=== PATIENT | male | born 1975 | race Caucasian/White ===

== ENCOUNTER 2020-08-19 08:51 | Outpatient (REF) | payer OTHER, SELFPAY ==
[2020-08-19 11:14] LABS: MANUAL DIFF FLAG NO
[2020-08-19 11:22] LABS: Basophils Absolute Auto 0.1 X10*3/uL (0.0-0.2); Basophils Percent Auto 0.8 % (0-2); Eosinophils Absolute Auto 0.1 X10*3/uL (0.0-0.4); Eosinophils Percent Auto 0.8 % (0-4); Hematocrit 43.6 % (42-52); Hemoglobin 14.2 g/dl (14.0-18.0); Imm Gran Abs Auto 0.05 X10*3/uL (0.00-0.03); Imm Gran Pct Auto 0.8 % (0.0-0.4); Lymphocytes Absolute Auto 1.5 X10*3/uL (1.2-4.9); Lymphocytes Percent Auto 24.2 % (20-40); Mean Corpuscular HGB Conc 32.6 g/dl (31.0-36.0); Mean Corpuscular Hemoglobin 32.7 pg (27.0-33.0); Mean Corpuscular Volume 100.5 fL (80-98); Mean Platelet Volume 10.7 fL (9.4-12.4); Monocytes Absolute Auto 0.4 X10*3/uL (0.1-1.2); Monocytes Percent Auto 6.3 % (2-11); Neutrophils Percent Auto 67.1 % (45-73); Platelet Count 303 X10*3/uL (160-400); Red Blood Count 4.34 X10*6/uL (4.60-5.80); Red Cell Distribution Width 12.2 % (11.0-16.0)
[2020-08-19 12:01] LABS: Alanine Aminotransferase 51 U/L (0-40); Albumin Level 4.4 g/dL (3.5-5.0); Alkaline Phosphatase 70 U/L (39-117); Anion Gap 17 (12-20); Aspartate Amino Transferase 34 U/L (5-37); Bilirubin Total 0.2 mg/dL (0.0-1.0); Blood Urea Nitrogen 18 mg/dL (9-16); Carbon Dioxide 21 mmol/L (22-29); Chloride 107 mmol/L (96-108); Cholesterol 254 mg/dL; Estimated Glomerular Filt Rate > 60; Free T4 (Free Thyroxine) 0.74 ng/dL (0.71-1.85); Glucose Fasting 108 mg/dL (60-99); HDL Cholesterol 41 mg/dL; Sodium 141 mmol/L (135-145); Thyroid Stimulating Hormone 2.01 uIU/mL (0.32-4.0); Total Protein 7.3 g/dL (6.5-8.0); Triglycerides 431 mg/dL
[2020-08-19 12:14] LABS: Vitamin B12 225 pg/mL (200-900)
== END 2020-08-19 08:52 | disposition home or self-care (01) ==
LOC: HO.HMGCLDS 08:51
PROVIDERS: PCP Internal Medicine; Visit Provider Internal Medicine
DX: Z00.00 Encounter for general adult medical examination without abnormal findings (principal); R63.5 Abnormal weight gain
CPT/HCPCS: 36415; 80053; 80061; 82607; 84439; 84443; 85025; 86140

== ENCOUNTER → 2020-11-10 12:54 | Outpatient (REF) | payer OTHER, SELFPAY ==
--- NOTE | 2020-11-10 12:58 | CA_ITS ---
Transthoracic Echocardiogram Patient (Last, First, Middle): Bautista Caamrillo J Gender: Male Date of : 1975 Age: 45 Procedure Date: 11/10/2020 Procedure Type: Transthoracic Echocardiogram Location: OP Height: 177.8 cm Weight: 102.06 kg BSA: 2.19 m2 Heart Rate: bpm BP: 124 / 84 mmHg Radio Repairman: EVELIO Referring MD: Song Pratt MD Symptoms: LEFT VENTRICULAR FAILURE, UNSPECIFIED Study Quality: Fair ECG Rhythm: Sinus Conclusions: - The left ventricular systolic function is normal. The visually estimated ejection fraction is between 55-60%. - No obvious valvular pathology seen on this study. Findings Left Ventricle Normal left ventricular cavity size. There is normal left ventricular wall thickness. The left ventricular systolic function is normal. The visually estimated ejection fraction is between 55-60%. There is no evidence of regional wall motion abnormalities. Diastolic function is normal for age. Right Ventricle Normal right ventricular cavity size and systolic function. Atria Both atria are normal in size. Aortic Valve There is a normal trileaflet aortic valve. There is no aortic valve stenosis. There is no aortic valve regurgitation. Mitral Valve The mitral valve appears normal. There is trace mitral valve regurgitation. There is no mitral valve stenosis. Pulmonic Valve The pulmonic valve was not well visualized. Tricuspid Valve Normal tricuspid valve structure. There is trace tricuspid valve regurgitation. The pulmonary artery systolic pressure is normal. Great Vessels The aortic annulus, sinuses of valsalva, asc aorta, and aortic arch are normal in size. Venous The inferior vena cava is normal in size and collapses greater than 50% with inspiration. Pericardium/Pleural There is no evidence of pericardial effusion. Recommendations, Care & Conclusions No obvious valvular pathology seen on this study. Measurements 2D Linear Measurements IVSd: 0.98 0.6-0.9/0.6-1.0 cm LVIDd: 4.69 3.9-5.3/4.2-5.9 cm LVIDd Index: 2.14 2.4-3.2/2.2-3.1 cm/m2 LVIDs: 3.14 2.0-3.6 cm LVPWd: 0.91 0.7-1.1 cm Ao Root: 3.60 2.1-3.5 cm LA Diam: 3.30 2.7-3.8/3.0-4.0 cm LAIDs Index: 1.51 1.5-2.3 cm/m2 LV Mass: 189.27 67-162/88-224 g LV Mass Index: 86.42 43-95/49-115 g/m2 LVOT Diam: 2.30 3.0+(-)1.3 cm 2D Systolic Function EF 4C: 59.50 >55% EF 2C: 56.00 >55% EF BiP: 57.80 >55% Mitral Valve MV Pk E: 0.52 MV PK A: 0.72 MV Decel Time: 266.00 E/A: 0.70 E'Lateral: 8.27 E'Medial: 6.09 E/E' Med: 8.50 E/E' Lat: 6.30 PHT: 78.00 MVA PHT: 2.82 Decel Geary: 1.96 Aortic Valve AoV Pk Wilfred: 1.05 AoV Mn Wilfred: 0.68 AoV VTI: 0.15 AoV Pk Grad: 4.00 Aov Mn Grad: 2.00 HAL Cont.VTI: 3.96 LVOT LVOT Pk Wilfred: 0.83 LVOT Mn Wilfred: 0.53 LVOT VTI: 0.15 LVOT Pk Grad: 3.00 LVOT Mn Grad: 1.00 LVOT Diam: 2.30 LVOT Area: 4.15 Diastolic Function MV Pk E: 0.52 MV Pk A: 0.72 E/A: 0.70 E'Medial: 6.09 E/E' Med: 8.50 E' Laterial: 8.27 E/E' Lat: 6.30 Great Vessels Aorta Ao Root-2D: 3.60 2.0-3.7 cm Ao Asc: 3.10 2.1-3.4 cm Ao Arch: 3.30 Updated in Other Vendor System with Status of Final Joseph Oliveira MD electronically signed on 11/12/2020 2:09:29 PM with status of Final
== END ==
LOC: HO.CARD 12:54
PROVIDERS: PCP Internal Medicine; Visit Provider Internal Medicine
DX: R00.2 Palpitations (principal); I50.1 Left ventricular failure, unspecified
CPT/HCPCS: 93306

== ENCOUNTER 2020-12-25 09:04 | Outpatient (REF) | payer OTHER, SELFPAY ==
[2020-12-25 13:42] LABS: MANUAL DIFF FLAG NO
[2020-12-25 14:02] LABS: Basophils Absolute Auto 0.1 X10*3/uL (0.0-0.2); Eosinophils Absolute Auto 0.1 X10*3/uL (0.0-0.4); Eosinophils Percent Auto 1.1 % (0-4); Hematocrit 43.1 % (42-52); Hemoglobin 13.8 g/dl (14.0-18.0); Imm Gran Abs Auto 0.03 X10*3/uL (0.00-0.03); Imm Gran Pct Auto 0.4 % (0.0-0.4); Lymphocytes Absolute Auto 1.5 X10*3/uL (1.2-4.9); Lymphocytes Percent Auto 21.6 % (20-40); Mean Corpuscular Hemoglobin 33.3 pg (27.0-33.0); Mean Corpuscular Volume 103.9 fL (80-98); Mean Platelet Volume 10.5 fL (9.4-12.4); Monocytes Absolute Auto 0.5 X10*3/uL (0.1-1.2); Monocytes Percent Auto 7.3 % (2-11); Neutrophils Absolute Auto 4.8 X10*3/uL (2.0-8.3); Neutrophils Percent Auto 68.6 % (45-73); Platelet Count 337 X10*3/uL (160-400); Red Blood Count 4.15 X10*6/uL (4.60-5.80)
[2020-12-25 14:19] LABS: Alanine Aminotransferase 101 U/L (0-40); Albumin Level 4.7 g/dL (3.5-5.0); Alkaline Phosphatase 82 U/L (39-117); Anion Gap 16 (12-20); Aspartate Amino Transferase 63 U/L (5-37); Bilirubin Total 0.8 mg/dL (0.0-1.0); Blood Urea Nitrogen 14 mg/dL (9-16); Carbon Dioxide 24 mmol/L (22-29); Chloride 101 mmol/L (96-108); Cholesterol 313 mg/dL; Estimated Glomerular Filt Rate > 60; Glucose Fasting 132 mg/dL (60-99); HDL Cholesterol 34 mg/dL; LDL Cholesterol Calculated 235 mg/dl; Potassium 4.9 mmol/L (3.3-5.1); Sodium 136 mmol/L (135-145); Total Protein 7.7 g/dL (6.5-8.0); Triglycerides 223 mg/dL
[2020-12-25 14:39] LABS: Vitamin D 25-OH Total 25.5 ng/mL (>30)
[2020-12-27 09:20] LABS: Vitamin B12 320 pg/mL (200-900)
== END 2020-12-25 09:05 | disposition home or self-care (01) ==
LOC: HO.HMGCLDS 09:04
PROVIDERS: PCP Internal Medicine; Visit Provider Internal Medicine
DX: I10 Essential (primary) hypertension (principal); E55.9 Vitamin D deficiency, unspecified; E53.8 Deficiency of other specified B group vitamins; E78.5 Hyperlipidemia, unspecified
CPT/HCPCS: 36415; 80053; 80061; 82306; 82607; 85025

== ENCOUNTER 2021-01-19 08:15 | Outpatient (REF) | payer OTHER, SELFPAY ==
--- NOTE | ~2021-01-19 | XR_ITS ---
EXAMINATION: XR SHOULDER, RIGHT CLINICAL INFORMATION: Right shoulder pain. COMPARISON: None TECHNIQUE: AP external rotation, Grashey, scapular Y, and axillary views of the right shoulder. FINDINGS: The bones and soft tissues are normal. No fracture. Glenohumeral and acromioclavicular alignment is anatomic with normal joint space. No abnormal soft tissue calcifications. XR/XR shoulder RT min 2V IMPRESSION: Unremarkable right shoulder.
== END 2021-01-19 08:16 | disposition home or self-care (01) ==
LOC: HO.HOSX 08:15
PROVIDERS: Visit Provider Orthopaedic Surgery
DX: M75.41 Impingement syndrome of right shoulder (principal)
CPT/HCPCS: 20610; 73030; J1040

== ENCOUNTER 2021-04-09 09:36 | Outpatient (REF) | payer OTHER, SELFPAY ==
[2021-04-09 11:09] LABS: MANUAL DIFF FLAG NO
[2021-04-09 11:31] LABS: Basophils Absolute Auto 0.1 X10*3/uL (0.0-0.2); Basophils Percent Auto 0.8 % (0-2); Eosinophils Absolute Auto 0.1 X10*3/uL (0.0-0.4); Eosinophils Percent Auto 1.1 % (0-4); Hematocrit 41.7 % (42-52); Hemoglobin 13.8 g/dl (14.0-18.0); Imm Gran Abs Auto 0.03 X10*3/uL (0.00-0.03); Imm Gran Pct Auto 0.5 % (0.0-0.4); Lymphocytes Absolute Auto 1.7 X10*3/uL (1.2-4.9); Lymphocytes Percent Auto 27.7 % (20-40); Mean Corpuscular HGB Conc 33.1 g/dl (31.0-36.0); Mean Corpuscular Hemoglobin 32.3 pg (27.0-33.0); Mean Corpuscular Volume 97.7 fL (80-98); Mean Platelet Volume 10.5 fL (9.4-12.4); Monocytes Absolute Auto 0.4 X10*3/uL (0.1-1.2); Neutrophils Absolute Auto 3.9 X10*3/uL (2.0-8.3); Neutrophils Percent Auto 62.9 % (45-73); Platelet Count 309 X10*3/uL (160-400); Red Blood Count 4.27 X10*6/uL (4.60-5.80); Red Cell Distribution Width 12.6 % (11.0-16.0); White Blood Count 6.2 X10*3/uL (4.8-10.8)
[2021-04-09 12:18] LABS: Alanine Aminotransferase 72 U/L (0-40); Albumin Level 4.6 g/dL (3.5-5.0); Alkaline Phosphatase 75 U/L (39-117); Anion Gap 17 (12-20); Aspartate Amino Transferase 54 U/L (5-37); Bilirubin Total 0.6 mg/dL (0.0-1.0); Blood Urea Nitrogen 7 mg/dL (9-16); Calcium 9.8 mg/dL (8.4-10.2); Carbon Dioxide 21 mmol/L (22-29); Chloride 104 mmol/L (96-108); Cholesterol 278 mg/dL; Estimated Glomerular Filt Rate > 60; Glucose Fasting 144 mg/dL (60-99); HDL Cholesterol 27 mg/dL; Iron 119 mcg/dL (45-160); LDL Cholesterol Calculated 213 mg/dl; Potassium 3.9 mmol/L (3.3-5.1); Sodium 138 mmol/L (135-145); Total Protein 7.5 g/dL (6.5-8.0); Triglycerides 193 mg/dL
[2021-04-13 15:06] LABS: Percent Iron Saturation 40 % (15-50); Total Iron Binding Capacity 298 mcg/dL (228-428); Unsaturated Iron Binding 179 ug/dL
== END 2021-04-09 09:37 | disposition home or self-care (01) ==
LOC: HO.HMGCLDS 09:36
PROVIDERS: PCP Internal Medicine; Visit Provider Internal Medicine
DX: E78.5 Hyperlipidemia, unspecified (principal); R73.03 Prediabetes; I10 Essential (primary) hypertension
CPT/HCPCS: 36415; 80053; 80061; 83540; 85025

== ENCOUNTER 2021-05-20 09:13 | Outpatient (REF) | payer OTHER, SELFPAY ==
[2021-05-20 13:23] LABS: Alanine Aminotransferase 68 U/L (0-40); Albumin Level 4.7 g/dL (3.5-5.0); Alkaline Phosphatase 65 U/L (39-117); Anion Gap 17 (12-20); Aspartate Amino Transferase 55 U/L (5-37); Bilirubin Total 0.5 mg/dL (0.0-1.0); Blood Urea Nitrogen 10 mg/dL (9-16); Calcium 9.7 mg/dL (8.4-10.2); Carbon Dioxide 20 mmol/L (22-29); Chloride 109 mmol/L (96-108); Estimated Glomerular Filt Rate > 60; Glucose Random 102 mg/dL (60-115); Potassium 4.2 mmol/L (3.3-5.1); Sodium 142 mmol/L (135-145); Total Protein 7.7 g/dL (6.5-8.0)
[2021-05-20 14:06] LABS: Estimated Average Glucose 111 mg/dL; Hemoglobin A1c % 5.5 %
== END 2021-05-20 09:14 | disposition home or self-care (01) ==
LOC: HO.HMGCLDS 09:13
PROVIDERS: PCP Internal Medicine; Visit Provider Internal Medicine
DX: E78.00 Pure hypercholesterolemia, unspecified (principal); R79.89 Other specified abnormal findings of blood chemistry; R73.03 Prediabetes
CPT/HCPCS: 36415; 80053; 82550; 83036

== ENCOUNTER 2021-12-10 09:52 | Outpatient (REF) | payer OTHER, SELFPAY ==
[2021-12-10 10:59] LABS: MANUAL DIFF FLAG NO
[2021-12-10 11:08] LABS: Basophils Absolute Auto 0.1 X10*3/uL (0.0-0.2); Basophils Percent Auto 0.9 % (0-2); Eosinophils Absolute Auto 0.1 X10*3/uL (0.0-0.4); Eosinophils Percent Auto 1.6 % (0-4); Hematocrit 41.2 % (42.0-52.0); Hemoglobin 13.3 g/dl (14.0-18.0); Imm Gran Abs Auto 0.02 X10*3/uL (0.00-0.03); Imm Gran Pct Auto 0.3 % (0.0-0.4); Lymphocytes Absolute Auto 1.8 X10*3/uL (1.2-4.9); Mean Corpuscular HGB Conc 32.3 g/dl (31.0-36.0); Mean Corpuscular Hemoglobin 31.6 pg (27.0-33.0); Mean Corpuscular Volume 97.9 fL (80.0-98.0); Mean Platelet Volume 10.4 fL (9.4-12.4); Monocytes Absolute Auto 0.4 X10*3/uL (0.1-1.2); Monocytes Percent Auto 5.6 % (2-11); Neutrophils Absolute Auto 4.4 x10*3/uL (2.0-8.3); Neutrophils Percent Auto 64.6 % (45-73); Platelet Count 311 X10*3/uL (160-400); Red Blood Count 4.21 X10*6/uL (4.60-5.80); Red Cell Distribution Width 12.7 % (11.0-16.0); White Blood Count 6.8 X10*3/uL (4.8-10.8)
[2021-12-10 11:13] LABS: Alanine Aminotransferase 45 U/L (0-40); Albumin Level 4.4 g/dL (3.5-5.0); Alkaline Phosphatase 59 U/L (39-117); Anion Gap 12 (12-20); Aspartate Amino Transferase 30 U/L (5-37); Bilirubin Total 0.5 mg/dL (0.0-1.0); Blood Urea Nitrogen 14 mg/dL (9-16); C Reactive Protein 1.68 mg/dL (< or = 0.50); Calcium 9.2 mg/dL (8.4-10.2); Carbon Dioxide 23 mmol/L (22-29); Chloride 107 mmol/L (96-108); Cholesterol 207 mg/dL; Estimated Glomerular Filt Rate > 60; Glucose Fasting 122 mg/dL (60-99); HDL Cholesterol 36 mg/dL; Potassium 4.2 mmol/L (3.3-5.1); Sodium 138 mmol/L (135-145); Total Protein 7.3 g/dL (6.5-8.0)
[2021-12-10 11:18] LABS: LDL Cholesterol Calculated 127 mg/dl; Triglycerides 221 mg/dL
[2021-12-10 11:22] LABS: Estimated Average Glucose 117 mg/dL; Hemoglobin A1c % 5.7 %
== END 2021-12-10 09:53 | disposition home or self-care (01) ==
LOC: HO.HMGCLDS 09:52
PROVIDERS: Visit Provider Internal Medicine
DX: E78.00 Pure hypercholesterolemia, unspecified (principal); R73.01 Impaired fasting glucose; I10 Essential (primary) hypertension; R51.9 Headache, unspecified
CPT/HCPCS: 36415; 80053; 80061; 83036; 85025; 86140

== ENCOUNTER 2022-06-01 11:53 | Outpatient (REF) | payer OTHER, SELFPAY ==
[2022-06-01 15:02] LABS: MANUAL DIFF FLAG NO
[2022-06-01 15:11] LABS: Basophils Absolute Auto 0.1 X10*3/uL (0.0-0.2); Eosinophils Absolute Auto 0.1 X10*3/uL (0.0-0.4); Hematocrit 46.3 % (42.0-52.0); Imm Gran Abs Auto 0.02 X10*3/uL (0.00-0.03); Imm Gran Pct Auto 0.3 % (0.0-0.4); Lymphocytes Absolute Auto 1.3 X10*3/uL (1.2-4.9); Lymphocytes Percent Auto 15.6 % (20-40); Mean Corpuscular HGB Conc 32.4 g/dl (31.0-36.0); Mean Corpuscular Hemoglobin 31.8 pg (27.0-33.0); Mean Corpuscular Volume 98.3 fL (80.0-98.0); Mean Platelet Volume 10.5 fL (9.4-12.4); Monocytes Absolute Auto 0.5 X10*3/uL (0.1-1.2); Monocytes Percent Auto 6.8 % (2-11); Neutrophils Percent Auto 75.3 % (45-73); Platelet Count 346 X10*3/uL (160-400); Red Blood Count 4.71 X10*6/uL (4.60-5.80); Red Cell Distribution Width 13.1 % (11.0-16.0)
[2022-06-01 15:18] LABS: Estimated Average Glucose 120 mg/dL; Hemoglobin A1c % 5.8 %
[2022-06-01 15:31] LABS: Alanine Aminotransferase 25 U/L (0-40); Alkaline Phosphatase 66 U/L (39-117); Anion Gap 16 (12-20); Aspartate Amino Transferase 24 U/L (5-37); Bilirubin Total 0.3 mg/dL (0.0-1.0); Blood Urea Nitrogen 14 mg/dL (9-16); Calcium 9.6 mg/dL (8.4-10.2); Carbon Dioxide 18 mmol/L (22-29); Chloride 110 mmol/L (96-108); Cholesterol 205 mg/dL; Estimated Glomerular Filt Rate 55; Glucose Fasting 130 mg/dL (60-99); HDL Cholesterol 39 mg/dL; LDL Cholesterol Calculated 141 mg/dl; Potassium 4.2 mmol/L (3.3-5.1); Sodium 140 mmol/L (135-145); Total Protein 8.2 g/dL (6.5-8.0); Triglycerides 125 mg/dL
== END 2022-06-01 11:54 | disposition home or self-care (01) ==
LOC: HO.HMGCLDS 11:53
PROVIDERS: PCP Internal Medicine; Visit Provider Internal Medicine
DX: I10 Essential (primary) hypertension (principal); R79.89 Other specified abnormal findings of blood chemistry; R73.03 Prediabetes; E78.5 Hyperlipidemia, unspecified
CPT/HCPCS: 36415; 80053; 80061; 83036; 85025

== ENCOUNTER 2022-11-21 11:34 | Outpatient (REF) | payer OTHER, SELFPAY ==
[2022-11-21 14:33] LABS: Estimated Average Glucose 128 mg/dL; Hemoglobin A1C 152.5203 umol/L; Hemoglobin A1c % 6.1 %
[2022-11-21 14:40] LABS: Anion Gap 15 (12-20); Blood Urea Nitrogen 16 mg/dL (9-16); Calcium 9.5 mg/dL (8.4-10.2); Carbon Dioxide 21 mmol/L (22-29); Chloride 106 mmol/L (96-108); Estimated Glomerular Filt Rate > 60; Glucose Random 123 mg/dL (60-115); Potassium 4.2 mmol/L (3.3-5.1); Sodium 138 mmol/L (135-145)
[2022-11-21 14:46] LABS: Free T4 (Free Thyroxine) 0.72 ng/dL (0.71-1.85); Thyroid Stimulating Hormone 1.93 uIU/mL (0.32-4.0)
== END 2022-11-21 11:35 | disposition home or self-care (01) ==
LOC: HO.HMGCLDS 11:34
PROVIDERS: PCP Internal Medicine; Visit Provider Internal Medicine
DX: R73.03 Prediabetes (principal); N18.9 Chronic kidney disease, unspecified; R63.5 Abnormal weight gain
CPT/HCPCS: 36415; 80048; 83036; 84439; 84443

== ENCOUNTER 2023-03-10 09:29 | Outpatient (REF) | payer OTHER, SELFPAY ==
[2023-03-10 11:23] LABS: MANUAL DIFF FLAG NO
[2023-03-10 11:35] LABS: Basophils Percent Auto 0.8 % (0-2); Eosinophils Absolute Auto 0.1 X10*3/uL (0.0-0.4); Hematocrit 43.2 % (42.0-52.0); Hemoglobin 14.1 g/dl (14.0-18.0); Imm Gran Abs Auto 0.03 X10*3/uL (0.00-0.03); Imm Gran Pct Auto 0.6 % (0.0-0.4); Lymphocytes Absolute Auto 1.3 X10*3/uL (1.2-4.9); Lymphocytes Percent Auto 26.2 % (20-40); Mean Corpuscular HGB Conc 32.6 g/dl (31.0-36.0); Mean Corpuscular Hemoglobin 31.8 pg (27.0-33.0); Mean Corpuscular Volume 97.3 fL (80.0-98.0); Mean Platelet Volume 10.7 fL (9.4-12.4); Monocytes Absolute Auto 0.3 X10*3/uL (0.1-1.2); Monocytes Percent Auto 5.8 % (2-11); Neutrophils Absolute Auto 3.2 x10*3/uL (2.0-8.3); Neutrophils Percent Auto 65.6 % (45-73); Platelet Count 305 X10*3/uL (160-400); Red Blood Count 4.44 X10*6/uL (4.60-5.80); Red Cell Distribution Width 13.4 % (11.0-16.0); White Blood Count 4.9 X10*3/uL (4.8-10.8)
[2023-03-10 11:47] LABS: Estimated Average Glucose 120 mg/dL; Hemoglobin A1c % 5.8 %
[2023-03-10 12:05] LABS: Alanine Aminotransferase 133 U/L (0-40); Albumin Level 4.7 g/dL (3.5-5.0); Alkaline Phosphatase 85 U/L (39-117); Anion Gap 15 (12-20); Aspartate Amino Transferase 121 U/L (5-37); Bilirubin Total 0.4 mg/dL (0.0-1.0); Blood Urea Nitrogen 8 mg/dL (9-16); C Reactive Protein 2.83 mg/dL (< or = 0.50); Carbon Dioxide 23 mmol/L (22-29); Chloride 108 mmol/L (96-108); Estimated Glomerular Filt Rate > 60; Glucose Random 154 mg/dL (60-115); Potassium 4.3 mmol/L (3.3-5.1); Sodium 142 mmol/L (135-145); Total Protein 8.1 g/dL (6.5-8.0)
[2023-03-10 12:12] LABS: Erythrocyte Sedimentation Rate 39 MM/HR (0-15)
== END 2023-03-10 09:30 | disposition home or self-care (01) ==
LOC: HO.HMGCLDS 09:29
PROVIDERS: PCP Internal Medicine; Visit Provider Internal Medicine
DX: I10 Essential (primary) hypertension (principal); R73.03 Prediabetes
CPT/HCPCS: 36415; 80053; 82550; 83036; 85025; 85652; 86140

== ENCOUNTER 2023-09-15 09:46 | Outpatient (REF) | payer OTHER, SELFPAY ==
[2023-09-15 11:20] LABS: MANUAL DIFF FLAG NO
[2023-09-15 11:27] LABS: Basophils Absolute Auto 0.1 X10*3/uL (0.0-0.2); Basophils Percent Auto 0.9 % (0-2); Eosinophils Absolute Auto 0.1 X10*3/uL (0.0-0.4); Hematocrit 40.6 % (42.0-52.0); Hemoglobin 13.3 g/dl (14.0-18.0); Imm Gran Abs Auto 0.03 X10*3/uL (0.00-0.03); Imm Gran Pct Auto 0.5 % (0.0-0.4); Lymphocytes Absolute Auto 1.8 X10*3/uL (1.2-4.9); Lymphocytes Percent Auto 27.9 % (20-40); Mean Corpuscular HGB Conc 32.8 g/dl (31.0-36.0); Mean Corpuscular Hemoglobin 31.6 pg (27.0-33.0); Mean Corpuscular Volume 96.4 fL (80.0-98.0); Mean Platelet Volume 10.3 fL (9.4-12.4); Monocytes Absolute Auto 0.5 X10*3/uL (0.1-1.2); Monocytes Percent Auto 7.1 % (2-11); Neutrophils Absolute Auto 4.1 x10*3/uL (2.0-8.3); Neutrophils Percent Auto 61.6 % (45-73); Platelet Count 317 X10*3/uL (160-400); Red Blood Count 4.21 X10*6/uL (4.60-5.80); Red Cell Distribution Width 12.9 % (11.0-16.0); White Blood Count 6.6 X10*3/uL (4.8-10.8)
[2023-09-15 12:04] LABS: Alanine Aminotransferase 54 U/L (0-40); Albumin Level 4.6 g/dL (3.5-5.0); Alkaline Phosphatase 62 U/L (39-117); Anion Gap 16 (12-20); Aspartate Amino Transferase 43 U/L (5-37); Bilirubin Total 0.4 mg/dL (0.0-1.0); Blood Urea Nitrogen 16 mg/dL (9-16); C Reactive Protein 3.08 mg/dL (< or = 0.50); Calcium 9.8 mg/dL (8.4-10.2); Carbon Dioxide 23 mmol/L (22-29); Chloride 105 mmol/L (96-108); Cholesterol 199 mg/dL (<200); Estimated Glomerular Filt Rate > 60; Glucose Fasting 122 mg/dL (60-99); HDL Cholesterol 28 mg/dL (>40); LDL Cholesterol Calculated 139 mg/dL (<100); Potassium 4.1 mmol/L (3.3-5.1); Sodium 140 mmol/L (135-145); Triglycerides 164 mg/dL (<150)
== END 2023-09-15 09:47 | disposition home or self-care (01) ==
LOC: HO.HMGCLDS 09:46
PROVIDERS: PCP Internal Medicine; Visit Provider Internal Medicine
DX: E78.5 Hyperlipidemia, unspecified (principal); G43.909 Migraine, unspecified, not intractable, without status migrainosus; I10 Essential (primary) hypertension; K21.9 Gastro-esophageal reflux disease without esophagitis
CPT/HCPCS: 36415; 80053; 80061; 82550; 85025; 86140

== ENCOUNTER 2023-10-03 08:21 | Outpatient (REF) | payer OTHER, SELFPAY ==
--- NOTE | ~2023-10-03 | US_ITS ---
EXAMINATION: US COMPLETE ABDOMEN WITH LIVER ELASTOGRAPHY CLINICAL INFORMATION: Elevated liver function tests and fatty liver. COMPARISON: Abdominal ultrasound dated 11/03/2019. TECHNIQUE: Real-time imaging of the abdominal viscera. Noninvasive ultrasound liver fibrosis assessment is performed using Clara ElastPQ point quantification shear wave elastography (2D-SWE) with a C5-2 MHz transducer. Multiple elastography samples are obtained. FINDINGS: PANCREAS: Normal. The visualized pancreatic head and body are normal in appearance. The remainder of the pancreas is obscured from visualization by the overlying bowel gas. ABDOMINAL AORTA: The proximal and distal aortic segments are normal in caliber. The mid segment is partially obscured by overlapping bowel gas. INFERIOR VENA CAVA: Visualized portions are normal. LIVER: The liver demonstrates normal contour and generally increased echogenicity. No focal lesion or intrahepatic biliary duct dilatation. The right lobe measures 19.3 cm in length. The left lobe measures 10.7 cm in length. Portal flow is towards the liver (hepatopetal). Shear wave liver elastography median stiffness is 1.61 m/s (reference: normal median stiffness is 1.3 m/s or less). IQR/median stiffness to assess sampling precision is 0.11 (reference: good quality data set is IQR/median stiffness of 0.15 or less). GALLBLADDER: Normal. The gallbladder is physiologically distended without evidence of stones, sludge, polyps, wall thickening or pericholecystic fluid. COMMON BILE DUCT: Normal in caliber measuring 0.5 cm in diameter. RIGHT KIDNEY: At the interpolar aspect laterally, a 1.4 x 1.4 x 1.6 cm mildly complex cyst is redemonstrated, wall calcifications. On the CT examination dated 08/08/2019 (4:237), this showed a mildly complex (Bosniak 2), likely benign appearance. No imaging follow-up is recommended. No hydronephrosis. No renal calculi or focal parenchymal lesions. The kidney measures 11.1 cm in maximum dimension. LEFT KIDNEY: Normal. No hydronephrosis. No renal calculi or focal parenchymal lesions. The kidney measures 11.6 cm in maximum dimension. SPLEEN: Normal. The spleen measures 12.5 cm in maximum dimension. FREE FLUID: None. US/US abdomen comp w elastography IMPRESSION: 1. There is generalized increase in hepatic echotexture, consistent with fatty infiltration or hepatocellular disease. Please correlate clinically. No focal hepatic mass or intrahepatic biliary dilatation is seen. 2. There is mild hepatomegaly. 3. Liver elastography: In the absence of other known clinical signs, measurements rule out compensated advanced chronic liver disease. If there are known clinical signs, further testing may be needed for confirmation. 4. Technically limited ultrasound appearance of the abdominal aorta. REFERENCE: Society of Radiologists in Ultrasound Liver Stiffness Thresholds (2020): LIVER STIFFNESS THRESHOLDS: *Liver Stiffness equal or less than 1.3 m/s: High probability of being normal. *Liver Stiffness less than 1.7 m/s: In the absence of other known clinical signs, rules out compensated advanced chronic liver disease. *Liver Stiffness 1.7-2.1 m/s: Suggestive of compensated advanced chronic liver disease but need further test for confirmation. *Liver Stiffness over 2.1 m/s: Rules in compensated advanced chronic liver disease. *Liver Stiffness over 2.4 m/s: Suggestive of clinically significant portal hypertension. QUALITY OF DATA SET: *IQR/Median value equal or less than 0.15 implies a quality data set. *IQR/Median value over 0.15 implies a poor quality data set. SIGNIFICANT CHANGE FROM PRIOR EXAM: Significant change if liver stiffness measurement is 10% or greater from prior exam. OTHER CONSIDERATIONS: The stage of liver fibrosis may be overestimated in the setting of acute hepatitis, liver inflammation, elevated liver function tests, hepatic vascular congestion, obstructive cholestasis, non-fasting state, and infiltrative diseases such as amyloidosis and lymphoma. In some patients with NAFLD, the liver stiffness thresholds for compensated advanced chronic liver disease may be lower. In causes other than viral hepatitis and NAFLD, liver stiffness thresholds are not well established.
== END 2023-10-03 08:22 | disposition home or self-care (01) ==
LOC: HO.US 08:21
PROVIDERS: PCP Internal Medicine; Visit Provider Internal Medicine
DX: R79.89 Other specified abnormal findings of blood chemistry (principal); K76.0 Fatty (change of) liver, not elsewhere classified
CPT/HCPCS: 76700; 76981

== ENCOUNTER 2023-10-15 08:26 | Outpatient (AMB) | payer OTHER, SELFPAY ==
--- NOTE | 2023-10-15 08:39 | MHC.OFFVIS ---
Intake Vital Signs 10/15/23 08:40 Height 5 ft 11 in Weight 221 lb BMI 30.8 BP 104/67 Blood Pressure Location Lt brachial Position Sitting Respiration 12 Pulse 86 Pulse Source Pulse Oximeter Pulse Oximetry (%) 94 Oxygen Delivery Method Room Air Intake Visit Reasons: Chronic Headaches Allergies No Known Allergies [No Known Allergies*] Allergy (Verified 10/15/23 08:41) Medication List - Last Reconciled 10/15/23 by Kimmy Lombardi LPN atorvastatin 10 mg PO DAILY buspirone 5 mg PO BID carvedilol phosphate ER 20 mg PO DAILY desvenlafaxine succinate ER 100 mg PO DAILY gemfibrozil (Lopid) 600 mg PO DAILY ketamine mg sublingual lisinopril 5 mg PO DAILY omeprazole 20 mg PO DAILY HPI Chronic Headaches HPI Details 48-year-old male who presents today to the office for an evaluation of chronic headaches. The patient reports persistent headaches and migraine episodes. He reports pins and needle sensations on the eye and adventism regions and in his neck. He rated his pain at 8/10 in intensity in the evening, and his pain was slightly better in the morning. He is unable to sleep at night and perform his daily activities. He is unemployed. 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 He was diagnosed with concussions. He reports having frequent episodes of loss of balance and dizziness. He has a history of TMJ dysfunction, which was corrected with surgery with a good result. He started ketamine four weeks ago with no significant relief from his headaches. He is currently on carvedilol and has been having routine ECHOs to monitor his cardiac health. He is also taking buspirone 16 mg once daily. He has a history of depression and has been managing it with medications. He has tried physical therapy, massage therapy, and craniosacral therapy in the past with minimal benefit. He has been doing some stretching exercises at home. He tried trigger point injections about 3?4 years ago with minimal benefit. He has also tried agueda-cranial nerve block, which provided 5 days of relief for the first time and 2 days for the second time. He has tried Botox injections for migraines with minimal benefit. He also tried Ajovy and Emgality in the past. [facility] Medical History (Updated 10/15/23 @ 12:01 by Js Pickett MD) Other secondary scoliosis, thoracolumbar region Other fatigue Syncope and collapse Low back pain Acute pharyngitis Acute kidney failure Dizziness and giddiness Postconcussional syndrome Cervicalgia Fall (on) (from) other stairs and steps, initial encounter Nausea History of falling Major depressive disorder Essential (primary) hypertension Abnormal weight gain GERD with esophagitis Unspecified right bundle-branch block Chronic kidney disease, stage 1 Other obesity due to excess calories Vitamin D deficiency Prediabetes Abnormal results of liver function studies Mixed hyperlipidemia Headache Flexural eczema Chronic kidney disease, stage 2 (mild) Fatty liver Hypercholesteremia Hypertension Migraines Surgical History (Updated 01/19/21 @ 09:37 by Maria Fernanda Prado CMA) H/O left knee surgery Social History (Updated 01/19/21 @ 09:37 by Maria Fernanda Prado CMA) Current occupational status: unemployed Current occupation: Right Handed Review of Systems Const All systems reviewed & are unremarkable except as noted in HPI and below Physical Exam Vital Signs: Last Vital Signs Pulse 86 10/15/23 08:40 Resp 12 10/15/23 08:40 BP 104/67 10/15/23 08:40 Pulse Ox 94 10/15/23 08:40 Oxygen Delivery Method Room Air 10/15/23 08:40 BMI result Body Mass Index 30.8 General: Appears afebrile. Alert and oriented. Mood and affect appropriate. Follows and participates in conversation appropriately. Respiratory effort is unlabored. Able to transition from sit to stand unassisted. Ambulates with bilaterally normal heel strike and toe off. Office Procedures Nerve Block Details: Agueda-cranial nerve blocks After obtaining written consent, pre-procedure blood pressure and heart rate were stable and recorded in the nursing record. The patient was in the sitting position. The skin overlying the target pericranial nerves was prepped with alcohol. A 27 gauge 1.5 in needle was used. The needle was placed on the target nerves including supraorbital nerve, supratrochlear nerve, auriculotemporal nerve, lesser occipital nerve and greater occipital nerve bilaterally. Aspiration was negative for heme and synovial fluid. 0.5-1 cc of ropivacaine 0.5% was injected at each site. The skin was cleansed and hemostasis was ensured. The patient tolerated the procedure well and no complications were encountered. Following the procedure the patient's vital signs were stable. The patient was discharged home in good condition with post-procedural instructions. Time Out: Immediately prior to the procedure, the following was verbally confirmed that there is a signed consent form and that the correct patient, planned procedure, site and side are consistent with documentation and that necessary equipment and/or blood products are available prior to the start of the case. Complications: none EBL: <1 cc Procedure code (CPT) selection complete ([id number]) Results Reviewed Results Reviewed: No imaging is available for review. Assessment & Plan Assessment & Plan (1) Headache: Code(s): R51.9 - Headache, unspecified Plan 48-year-old male with daily persistent headaches and migraines. He has tried and failed multiple migraine therapies. The thing that has been helpful for him has been the trial of agueda-cranial nerve blocks in the past. I had a discussion with him about modulation strategies for headaches, including PNS for superior orbital and occipital nerves as well as a high cervical SCS trial. For now, we agreed to start with a trial of agueda-cranial nerve blocks before considering more invasive therapies. He also has underlying severe depression under better control prior to proceeding with modulation strategies. Patient is status post agueda-cranial nerve block. The patient tolerated the procedure well and was discharged home in stable condition with discharge instructions.? All questions were answered. If the patient has significant relief for 2?3 weeks, we can repeat the procedure as needed. Scribed for Dr. Pickett by Paul Sultana, medical communication specialist, on 10/15/2023. I, Dr. Pickett, have personally reviewed and agree with the information entered by the scribe. Coding Level of Care Code New Pt Level 4 (85366) Diagnoses Headache R51.9
[2023-10-15 08:40] VITALS: BP 104/67; PULSE 86; RESP 12; O2SAT 94; BMI 30.8
== END 2023-10-15 09:12 | disposition home or self-care (01) ==
PROVIDERS: PCP Internal Medicine; Referring Provider Internal Medicine; Visit Provider Internal Medicine
DX: R51.9 Headache, unspecified (principal)
CPT/HCPCS: 64405; 64450; 99204

== ENCOUNTER → 2023-10-15 08:26 | Outpatient (BNVA) | payer OTHER, SELFPAY | PROVIDERS: PCP Internal Medicine; Referring Provider Internal Medicine; Visit Provider Internal Medicine | DX: G43.909 Migraine, unspecified, not intractable, without status migrainosus (principal) | CPT/HCPCS: 64405; 64450; J2795 ==

== ENCOUNTER 2023-10-26 06:18 | Day surgery (SDC) | payer OTHER, SELFPAY ==
[2023-10-24 14:31] VITALS: BMI 34.6
--- NOTE | 2023-10-24 14:59 | HO.ANESPROP2 ---
HPI - Anesthesia Eval Consult details Narrative: 48yo M for Upper Endoscopy and Colonoscopy SL Ketamine 2 x weekly. Last dose 240mg 10/24/23 PMF Active Problems Active Problems: All Active Problems (Updated 10/24/23 @ 14:18 by April Loza RN) Rotator cuff impingement syndrome of right shoulder (Acute) Headache (Acute) Past Medical History Medical History History of TMJ syndrome Anxiety Depression Other secondary scoliosis, thoracolumbar region Other fatigue Syncope and collapse Low back pain Acute pharyngitis Acute kidney failure Dizziness and giddiness Postconcussional syndrome Cervicalgia Fall (on) (from) other stairs and steps, initial encounter Nausea History of falling Major depressive disorder Essential (primary) hypertension Abnormal weight gain GERD with esophagitis Unspecified right bundle-branch block Chronic kidney disease, stage 1 Other obesity due to excess calories Vitamin D deficiency Prediabetes Abnormal results of liver function studies Mixed hyperlipidemia Headache Flexural eczema Chronic kidney disease, stage 2 (mild) Fatty liver Hypercholesteremia Hypertension Migraines Surgical History Surgical History History of esophagogastroduodenoscopy (EGD) H/O left knee surgery Social History Social History Patient Tobacco Use Status: Never used Tobacco Current occupational status: unemployed Current occupation: Right Handed Meds Allergies Allergy/AdvReac Type Severity Reaction Status Date / Time No Known Allergies Allergy Verified 11/02/23 08:54 [No Known Allergies*] Home Medications Medication Instructions Recorded Confirmed Last Taken Type buspirone 5 mg tablet 30 mg PO BID 01/19/21 11/02/23 Unknown History carvedilol phosphate 20 mg 20 mg PO DAILY 01/19/21 11/02/23 Unknown History capsule,[id number] multiphase gemfibrozil 600 mg tablet (Lopid) 600 mg PO BID 01/19/21 11/02/23 Unknown History lisinopril 5 mg tablet 5 mg PO BEDTIME 01/19/21 11/02/23 Unknown History omeprazole 20 mg capsule,delayed 20 mg PO DAILY 01/19/21 11/02/23 Unknown History release atorvastatin 10 mg tablet 10 mg PO DAILY 10/15/23 11/02/23 Unknown History desvenlafaxine succinate 100 mg 100 mg PO DAILY 10/24/23 11/02/23 Unknown History tablet,extended release 24 hr (Pristiq) olanzapine 20 mg tablet 20 mg PO BEDTIME 10/24/23 11/02/23 Unknown History ketamine 240 mg LINGUAL 2XW 10/25/23 11/02/23 Unknown History olanzapine 20 mg-samidorphan 10 mg 1 tab PO BEDTIME 10/25/23 11/02/23 Unknown History tablet (Lybalvi) Exam Height,Weight and Vital Signs: Height 5 ft 8.5 in Weight 104.78 kg Pertinent Lab Results Pertinent Lab Results: Laboratory Tests 09/15/23 09:54 WBC 6.6 Hgb 13.3 L Hct 40.6 L Plt Count 317 Sodium 140 Potassium 4.1 Chloride 105 Carbon Dioxide 23 BUN 16 Creatinine 1.26 Assessment and Plan Assessment Anesthesia Assessment: Chart Reviewed
[2023-10-26 07:00] VITALS: BMI 30.9
[2023-10-26 07:05] VITALS: BP 121/86; PULSE 79; RESP 16; TEMP 36.4; O2SAT 95
[2023-10-26] MEDS: Lactated Ringers 1,000 ML 100 ML IVCONT (07:15)
--- NOTE | 2023-10-26 08:11 | HO.ANESPROP2 ---
[facility] Active Problems Active Problems: All Active Problems (Updated 10/26/23 @ 07:03 by Lizzy Demarco RN) Rotator cuff impingement syndrome of right shoulder (Acute) Headache (Acute) Past Medical History Medical History History of TMJ syndrome Anxiety Depression Other secondary scoliosis, thoracolumbar region Other fatigue Syncope and collapse Low back pain Acute pharyngitis Acute kidney failure Dizziness and giddiness Postconcussional syndrome Cervicalgia Fall (on) (from) other stairs and steps, initial encounter Nausea History of falling Major depressive disorder Essential (primary) hypertension Abnormal weight gain GERD with esophagitis Unspecified right bundle-branch block Chronic kidney disease, stage 1 Other obesity due to excess calories Vitamin D deficiency Prediabetes Abnormal results of liver function studies Mixed hyperlipidemia Headache Flexural eczema Chronic kidney disease, stage 2 (mild) Fatty liver Hypercholesteremia Hypertension Migraines Functional capacity: independent ambulation Family History Family history of problems with anesthesia: No Surgical History Surgical History History of esophagogastroduodenoscopy (EGD) H/O left knee surgery History of Problems with Anesthesia: No Social History Social History Patient Tobacco Use Status: Never used Tobacco Use of substances other than those prescribed or required for medical reasons: No Are you DNR?: No Advance Directives: No Advance Directives Information Provided: Yes Current occupational status: unemployed Current occupation: Right Handed Meds Allergies Allergy/AdvReac Type Severity Reaction Status Date / Time No Known Allergies Allergy Verified 10/26/23 07:01 [No Known Allergies*] Active Medications: Current Medications Lactated Ringer's (Lr) 1,000 mls @ 100 mls/hr IVCONT .Q10H ANTHONY Last Admin: 10/26/23 07:15 Dose: 100 mls/hr Sodium Biphosphate/Sodium Phosphate (Sodium Phosphate,[place]aca-Dibasic 133 Ml Enema) 133 ml AK ONCE PRN PRN Reason: Poor Colonoscopy Prep Results Home Medications Medication Instructions Recorded Confirmed Last Taken Type buspirone 5 mg tablet 30 mg PO BID 01/19/21 10/26/23 Unknown History carvedilol phosphate 20 mg 20 mg PO DAILY 01/19/21 10/26/23 Unknown History capsule,ext.[id number] multiphase gemfibrozil 600 mg tablet (Lopid) 600 mg PO BID 01/19/21 10/26/23 Unknown History lisinopril 5 mg tablet 5 mg PO BEDTIME 01/19/21 10/26/23 Unknown History omeprazole 20 mg capsule,delayed 20 mg PO DAILY 01/19/21 10/26/23 Unknown History release atorvastatin 10 mg tablet 10 mg PO DAILY 10/15/23 10/26/23 Unknown History desvenlafaxine succinate 100 mg 100 mg PO DAILY 10/24/23 10/26/23 Unknown History tablet,extended release 24 hr (Pristiq) olanzapine 20 mg tablet 20 mg PO BEDTIME 10/24/23 10/26/23 Unknown History ketamine 240 mg LINGUAL 2XW 10/25/23 10/26/23 Unknown History olanzapine 20 mg-samidorphan 10 mg 1 tab PO BEDTIME 10/25/23 10/26/23 Unknown History tablet (Lybalvi) Exam Height,Weight and Vital Signs: Height 5 ft 8.5 in Weight 93.44 kg Last Vital Signs Temp 97.6 F 10/26/23 07:05 Pulse 79 10/26/23 07:05 Resp 16 10/26/23 07:05 BP 121/86 10/26/23 07:05 Pulse Ox 95 10/26/23 07:05 O2 Del Method Room Air 10/26/23 07:05 Airway Mallampati Class: III TM Dist: >3cm Neck ROM: Full Heart: RRR Lungs: CTA Assessment and Plan Assessment Anesthesia Assessment: Anesthesia Plan Discussed Final Anesthetic Review Family History of Problems with Anesthesia: No History of Problems with Anesthesia: No NPO: Yes ASA Class: III Final Preanesthetic Review: Meds/Allgs Chart Reviewed, Consent Obtained/Reviewed and Anes Risks/Benef Reviewed Patient Risk: Intermediate Procedure Risk: Low Anesthetic Plan Anesthetic Plan: MAC: Disposition: Standard PACU
--- NOTE | 2023-10-26 08:40 | PM.OP ---
Brief Operative Note Date of Service: 10/26/23 Pre-op diagnosis: GERD, Screening Post-op diagnosis: other (Hiatal hernia, Colon polyp) Procedure: EGD with biopsies, Colonoscopy to the cecum and TI with bx/removal of polyp Surgeon: Carlos Gomez MD Anesthesia: MAC Was an Circular Knitter Helper used for this Procedure?: No Estimated blood loss (mL): 2.0 Pathology: other (A. EG Junction at 37cm B. Ascending colon polyp) Condition: stable Disposition: PACU
[2023-10-26 08:43] VITALS: BP 154/103; PULSE 83; RESP 16; TEMP 36.1; O2SAT 94
[2023-10-26 08:58] VITALS: BP 142/57; PULSE 75; RESP 16; TEMP 36.1; O2SAT 96
[2023-10-26 09:06] VITALS: BP 132/94; PULSE 72; RESP 16; TEMP 36.1; O2SAT 97
--- NOTE | 2023-10-26 10:09 | HO.POSTANES ---
Post Anesthesia Evaluation Post Anesthesia Evaluation Date of Service: 10/26/23 Vital Signs: Vital Signs Temp Pulse Resp BP Pulse Ox O2 Del Method 10/26/23 09:06 97 F 72 16 132/94 H 97 Room Air 10/26/23 08:58 97 F 75 16 142/57 H 96 Room Air 10/26/23 08:43 97 F 83 16 154/103 H 94 Room Air 10/26/23 07:05 97.6 F 79 16 121/86 95 Room Air Anesthesia: Monitored Mental Status: Awake Pain Control: Satisfactory Nausea/Vomiting: None Hydration: Adequate Anesthesia-Related Issues: No Anes. Related Issues
--- NOTE | 2023-10-26 12:24 | OP_ITS ---
DATE OF SERVICE: 10/26/2023 SURGEON: Carlos Gomez MD INDICATIONS: The patient presents for evaluation of gastroesophageal reflux and colorectal cancer screening. Full consent has been obtained from him for this, including risks of bleeding and perforation. PREOPERATIVE DIAGNOSIS: POSTOPERATIVE DIAGNOSIS: PROCEDURE PERFORMED: ESTIMATED BLOOD LOSS: COMPLICATIONS: ANESTHESIA: Monitored anesthesia care. ASSISTANTS: SPECIMENS: PREOPERATIVE DIAGNOSES: Gastroesophageal reflux and colorectal cancer screening. POSTOPERATIVE DIAGNOSES: Gastroesophageal reflux and colorectal cancer screening, small hiatal hernia, small colon polyp, internal hemorrhoids. PROCEDURES PERFORMED: Esophagogastroduodenoscopy with biopsies, and colonoscopy to the cecum and terminal ileum with biopsy and removal of polyp. DESCRIPTION OF PROCEDURE: The patient was placed in the left lateral decubitus position. The Olympus video gastroscope was passed in the posterior oropharynx and upper esophagus under direct vision. The scope was passed slowly to the distal esophagus. The gastroesophageal junction appeared at 37 cm. There was some very slight irregularity, but no evidence of esophagitis nor any definitive evidence of Nuñez's mucosa. The scope entered the stomach. There was a small hiatal hernia. The scope was advanced to the pylorus and the duodenum was cannulated to the descending portion. The duodenum including the bulb appeared normal without mass or ulceration. The scope was withdrawn back to the stomach. The gastric antrum and body appeared normal with good peristalsis. The scope was retroflexed visualizing the proximal stomach carefully, which appeared normal, without any sign of mass or ulceration. The scope was straightened and withdrawn back to the esophagus. Biopsies were obtained at the gastroesophageal junction at 37 cm. Proximal to this, the esophageal mucosa appeared normal. The scope was withdrawn from the patient. He was turned around for colonoscopy. The digital rectal exam revealed no abnormalities. The Olympus video pediatric colonoscope was entered into the rectum and advanced easily to the cecum. Once in the cecum, I did identify normal-appearing cecal pouch with appendiceal orifice and a normal-appearing ileocecal valve. The terminal ileum was cannulated and appeared normal. The scope was withdrawn back in the colon. The entire cecum and ileocecal valve appeared normal. The scope was slowly withdrawn assessing all mucosal surfaces carefully. Preparation was excellent. In the ascending colon was a flat, approximately 3 mm polyp, which was biopsied and completely removed with a cold biopsy forceps. I did not visualize any other polyps, colitis, or angiodysplasia. In the rectum, the scope was retroflexed visualizing small internal hemorrhoids, but no other pathology. The rectal mucosa appeared normal. The scope was straightened and withdrawn from the patient. He tolerated the procedure well and was returned to the recovery area in stable condition. IMPRESSION: 1. Small hiatal hernia, gastroesophageal reflux. 2. Small colon polyp. 3. Internal hemorrhoids. PLAN: The results of the biopsies will be checked. If the colon polyp is a tubular adenoma, I would recommend a followup coloscopy in 5 years. If it is only hyperplastic, I would recommend a followup coloscopy in 10 years. He was advised to continue his daily omeprazole which is working well for his reflux. He will be seen in the Fall for a followup visit in regard to the elevated LFTs and fatty liver. His most recent liver profile actually was much improved and just minimally elevated compared to the studies from last year. A recent ultrasound was consistent with fatty liver. He was to have had lab work with me for a complete liver workup but did not have that done, We shall try to arrange that for him as well. This has been discussed with his . MD EMEKA Ruiz/STEFANIE / [id number] MTDD
== END 2023-10-26 09:55 | disposition home or self-care (01) ==
PROVIDERS: PCP Internal Medicine; Visit Provider Internal Medicine
PROC: (CPT 45380; principal; 2023-10-26 07:30)
DX: Z12.11 Encounter for screening for malignant neoplasm of colon (principal); K63.5 Polyp of colon; K64.8 Other hemorrhoids; K21.9 Gastro-esophageal reflux disease without esophagitis; K44.9 Diaphragmatic hernia without obstruction or gangrene; K76.0 Fatty (change of) liver, not elsewhere classified; R79.89 Other specified abnormal findings of blood chemistry; I10 Essential (primary) hypertension; E78.5 Hyperlipidemia, unspecified; F41.8 Other specified anxiety disorders; Z79.899 Other long term (current) drug therapy; G43.909 Migraine, unspecified, not intractable, without status migrainosus
CPT/HCPCS: 45380; 43239; 88305; 88313; J2704

== ENCOUNTER 2023-11-02 08:44 | Outpatient (AMB) | payer OTHER, SELFPAY ==
--- NOTE | 2023-11-02 08:49 | A.OFFVIS_ITS ---
Intake Vital Signs 11/02/23 08:50 Height 5 ft 8.5 in Weight 225 lb BMI 33.7 BP 110/60 Blood Pressure Location Lt brachial Position Sitting Respiration 12 Pulse 90 Pulse Source Pulse Oximeter Pulse Oximetry (%) 94 Oxygen Delivery Method Room Air Intake Visit Reasons: agueda-cranial nerve blocks Allergies No Known Allergies [No Known Allergies*] Allergy (Verified 11/02/23 08:54) Medication List - Last Reconciled 11/02/23 by Kimmy Lombardi LPN atorvastatin 10 mg PO DAILY buspirone 30 mg PO BID carvedilol phosphate ER 20 mg PO DAILY desvenlafaxine succinate ER (Pristiq) 100 mg PO DAILY gemfibrozil (Lopid) 600 mg PO BID [ketamine 240 mg LINGUAL 2XW] lisinopril 5 mg PO BEDTIME olanzapine 20 mg PO BEDTIME olanzapine-samidorphan 20-10 mg (Lybalvi) 1 tab PO BEDTIME omeprazole 20 mg PO DAILY HPI agueda-cranial nerve blocks HPI Details 48-year-old male who presents today to t office for agueda-cranial nerve blocks. The patient reports 90% relief following the procedure for one week. His pain gradually started to come back after a week. Denies any recent cough, cold, infection, fever or other significant changes in medical history since last office visit. Past procedure: 10/15/23: Agueda-cranial nerve blocks: 90% relief for one week. [facility] Medical History History of TMJ syndrome Anxiety Depression Other secondary scoliosis, thoracolumbar region Other fatigue Syncope and collapse Low back pain Acute pharyngitis Acute kidney failure Dizziness and giddiness Postconcussional syndrome Cervicalgia Fall (on) (from) other stairs and steps, initial encounter Nausea History of falling Major depressive disorder Essential (primary) hypertension Abnormal weight gain GERD with esophagitis Unspecified right bundle-branch block Chronic kidney disease, stage 1 Other obesity due to excess calories Vitamin D deficiency Prediabetes Abnormal results of liver function studies Mixed hyperlipidemia Headache Flexural eczema Chronic kidney disease, stage 2 (mild) Fatty liver Hypercholesteremia Hypertension Migraines Surgical History History of esophagogastroduodenoscopy (EGD) H/O left knee surgery Social History Patient Tobacco Use Status: Never used Tobacco Current occupational status: unemployed Current occupation: Right Handed Review of Systems Const All systems reviewed & are unremarkable except as noted in HPI and below Physical Exam Vital Signs: Last Vital Signs Pulse 90 11/02/23 08:50 Resp 12 11/02/23 08:50 BP 110/60 11/02/23 08:50 Pulse Ox 94 11/02/23 08:50 Oxygen Delivery Method Room Air 11/02/23 08:50 BMI result Body Mass Index 33.7 General: Appears afebrile. Alert and oriented. Mood and affect appropriate. Follows and participates in conversation appropriately. Respiratory effort is unlabored. Able to transition from sit to stand unassisted. Ambulates with bilaterally normal heel strike and toe off. Office Procedures Nerve Block Details: Agueda-cranial nerve blocks After obtaining written consent, pre-procedure blood pressure and heart rate were stable and recorded in the nursing record. The patient was in the sitting position. The skin overlying the target pericranial nerves was prepped with alcohol. A 27 gauge 1.5 in needle was used. The needle was placed on the target nerves including supraorbital nerve, supratrochlear nerve, auriculotemporal nerve, lesser occipital nerve and greater occipital nerve bilaterally. Aspiration was negative for heme and synovial fluid. 0.5-1 cc of ropivacaine 0.5% was injected at each site. The skin was cleansed and hemostasis was ensured. The patient tolerated the procedure well and no complications were encountered. Following the procedure the patient's vital signs were stable. The patient was discharged home in good condition with post-procedural instructions. Time Out: Immediately prior to the procedure, the following was verbally confirmed that there is a signed consent form and that the correct patient, planned procedure, site and side are consistent with documentation and that necessary equipment and/or blood products are available prior to the start of the case. Complications: none EBL: <1 cc Procedure code (CPT) selection complete ([id number]) Results Reviewed Results Reviewed: No imaging is available for review. Assessment & Plan Assessment & Plan (1) Headache: Code(s): R51.9 - Headache, unspecified Plan Patient is status post agueda-cranial nerve blocks. Patient tolerated procedure well and was discharged home in stable condition with discharge instructions. All questions were answered. Follow-up as needed. Scribed for Dr. Pickett by Paul Sultana, rn medical surgical, on 11/02/2023. I, Dr. Pickett, have personally reviewed and agree with the information entered by the scribe. Coding Level of Care Code Procedure Only Diagnoses Headache R51.9
[2023-11-02 08:50] VITALS: BP 110/60; PULSE 90; RESP 12; O2SAT 94; BMI 33.7
== END 2023-11-02 09:28 | disposition home or self-care (01) ==
PROVIDERS: PCP Internal Medicine; Visit Provider Internal Medicine
DX: R51.9 Headache, unspecified (principal)
CPT/HCPCS: 64405; 64450

== ENCOUNTER → 2023-11-02 08:44 | Outpatient (BNVA) | payer OTHER, SELFPAY | PROVIDERS: PCP Internal Medicine; Visit Provider Internal Medicine | DX: R51.9 Headache, unspecified (principal) | CPT/HCPCS: 64405; 64450; J2795 ==

== ENCOUNTER 2023-11-29 06:21 | Outpatient (REF) | payer OTHER, SELFPAY | END 2023-11-29 06:22 | disposition home or self-care (01) | LOC: CF 06:21 | PROVIDERS: Visit Provider Internal Medicine | DX: R51.9 Headache, unspecified (principal) | CPT/HCPCS: 64450; J2795 ==

== ENCOUNTER 2023-11-29 10:32 | Outpatient (AMB) | payer OTHER, SELFPAY ==
[2023-11-29 11:23] VITALS: BP 126/76; PULSE 83; RESP 16; O2SAT 94
--- NOTE | 2023-11-29 11:23 | A.OFFVIS_ITS ---
Vital Signs 11/29/23 11:23 11/29/23 11:24 BP 126/76 128/68 Blood Pressure Location Lt brachial Lt brachial Position Sitting Sitting Respiration 16 18 Pulse 83 74 Pulse Source Pulse Oximeter Pulse Oximeter Pulse Oximetry (%) 94 96 Oxygen Delivery Method Room Air Room Air Comment Pre-Op Post-Op Intake Visit Reasons: pericranial NB Allergies No Known Allergies [No Known Allergies*] Allergy (Verified 11/02/23 08:54) HPI HPI pericranial NB: Details: Patient presents for scheduled procedure. Denies any recent cough, cold, infection, fever or other significant changes in medical history since last office visit. [facility] Medical History History of TMJ syndrome Anxiety Depression Other secondary scoliosis, thoracolumbar region Other fatigue Syncope and collapse Low back pain Acute pharyngitis Acute kidney failure Dizziness and giddiness Postconcussional syndrome Cervicalgia Fall (on) (from) other stairs and steps, initial encounter Nausea History of falling Major depressive disorder Essential (primary) hypertension Abnormal weight gain GERD with esophagitis Unspecified right bundle-branch block Chronic kidney disease, stage 1 Other obesity due to excess calories Vitamin D deficiency Prediabetes Abnormal results of liver function studies Mixed hyperlipidemia Headache Flexural eczema Chronic kidney disease, stage 2 (mild) Fatty liver Hypercholesteremia Hypertension Migraines Surgical History History of esophagogastroduodenoscopy (EGD) H/O left knee surgery Social History Patient Tobacco Use Status: Never used Tobacco Current occupational status: unemployed Current occupation: Right Handed Physical Exam Vital Signs: Last Vital Signs Pulse 74 11/29/23 11:24 Resp 18 11/29/23 11:24 BP 128/68 11/29/23 11:24 Pulse Ox 96 11/29/23 11:24 Oxygen Delivery Method Room Air 11/29/23 11:24 Office Procedures Nerve Block Details: Agueda-cranial nerve blocks, bilateral After obtaining written consent, pre-procedure blood pressure and heart rate were stable and recorded in the nursing record. The patient was in the sitting position. The skin overlying the target pericranial nerves was prepped with alcohol. A 27 gauge 1.5 in needle was used. The needle was placed on the target nerves including supraorbital nerve, supratrochlear nerve, auriculotemporal nerve, lesser occipital nerve and greater occipital nerve bilaterally. Aspiration was negative for heme and synovial fluid. 0.5-1 cc of ropivacaine 0.5% was injected at each site. The skin was cleansed and hemostasis was ensured. The patient tolerated the procedure well and no complications were encountered. Following the procedure the patient's vital signs were stable. The patient was discharged home in good condition with post-procedural instructions. Time Out: Immediately prior to the procedure, the following was verbally confirmed that there is a signed consent form and that the correct patient, planned procedure, site and side are consistent with documentation and that necessary equipment and/or blood products are available prior to the start of the case. Complications: none EBL: <1 cc Additional procedure code (CPT) needed (Trigeminal branches block) Assessment & Plan Assessment & Plan (1) Headache: Code(s): R51.9 - Headache, unspecified Category: Medical Plan Patient is status post bilateral pericranial nerve blocks. Patient tolerated procedure well and was discharged home in stable condition with discharge instructions. All questions were answered. We will follow-up via telephone or in clinic to assess response to therapy. A follow-up appointment was made during today's visit. Coding Level of Care Code Procedure Only Diagnoses Headache R51.9
[2023-11-29 11:24] VITALS: BP 128/68; PULSE 74; RESP 18; O2SAT 96
== END 2023-11-29 11:25 | disposition home or self-care (01) ==
LOC: HO.PMCPRC 10:32
PROVIDERS: PCP Internal Medicine; Visit Provider Internal Medicine
DX: R51.9 Headache, unspecified (principal)
CPT/HCPCS: 64450

== ENCOUNTER 2024-01-07 08:43 | Outpatient (AMB) | payer OTHER, SELFPAY ==
--- NOTE | 2024-01-07 08:57 | MHC.OFFVIS ---
Vital Signs 01/07/24 08:58 Height 5 ft 8.5 in Weight 225 lb BMI 33.7 BP 112/77 Blood Pressure Location Lt brachial Position Sitting Respiration 14 Pulse 95 Pulse Source Pulse Oximeter Pulse Oximetry (%) 94 Oxygen Delivery Method Room Air Intake Visit Reasons: Pericranial Nerve Block Allergies No Known Allergies [No Known Allergies*] Allergy (Verified 01/07/24 09:00) Medication List - Last Reconciled 01/07/24 by Kimmy Lombardi LPN atorvastatin 10 mg PO DAILY buspirone 30 mg PO BID carvedilol phosphate ER 20 mg PO DAILY desvenlafaxine succinate ER (Pristiq) 100 mg PO DAILY gemfibrozil (Lopid) 600 mg PO BID [ketamine 240 mg LINGUAL 2XW] lisinopril 5 mg PO BEDTIME olanzapine 20 mg PO BEDTIME olanzapine-samidorphan 20-10 mg (Lybalvi) 1 tab PO BEDTIME omeprazole 20 mg PO DAILY HPI HPI Pericranial Nerve Block: Details: 48-year-old male who presents today to the office for a pericranial nerve block. Patient presents for scheduled procedure. Denies any recent cough, cold, infection, fever or other significant changes in medical history since last office visit. Past procedures 11/29/23: Agueda-cranial nerve blocks, bilateral: 90% relief for 1 week. 11/02/23: Agueda-cranial nerve blocks: 90% relief for 1 week. 10/15/23: Agueda-cranial nerve blocks: 90% relief for one week. [facility] Medical History History of TMJ syndrome Anxiety Depression Other secondary scoliosis, thoracolumbar region Other fatigue Syncope and collapse Low back pain Acute pharyngitis Acute kidney failure Dizziness and giddiness Postconcussional syndrome Cervicalgia Fall (on) (from) other stairs and steps, initial encounter Nausea History of falling Major depressive disorder Essential (primary) hypertension Abnormal weight gain GERD with esophagitis Unspecified right bundle-branch block Chronic kidney disease, stage 1 Other obesity due to excess calories Vitamin D deficiency Prediabetes Abnormal results of liver function studies Mixed hyperlipidemia Headache Flexural eczema Chronic kidney disease, stage 2 (mild) Fatty liver Hypercholesteremia Hypertension Migraines Surgical History History of esophagogastroduodenoscopy (EGD) H/O left knee surgery Social History Patient Tobacco Use Status: Never used Tobacco Current occupational status: unemployed Current occupation: Right Handed Review of Systems Const All systems reviewed & are unremarkable except as noted in HPI and below Physical Exam Vital Signs: Last Vital Signs Pulse 95 01/07/24 08:58 Resp 14 01/07/24 08:58 BP 112/77 01/07/24 08:58 Pulse Ox 94 01/07/24 08:58 Oxygen Delivery Method Room Air 01/07/24 08:58 BMI result Body Mass Index 33.7 General: Appears afebrile. Alert and oriented. Mood and affect appropriate. Follows and participates in conversation appropriately. Respiratory effort is unlabored. Able to transition from sit to stand unassisted. Ambulates with bilaterally normal heel strike and toe off. Office Procedures Nerve Block Details: Agueda-cranial nerve blocks, bilateral After obtaining written consent, pre-procedure blood pressure and heart rate were stable and recorded in the nursing record. The patient was in the sitting position. The skin overlying the target pericranial nerves was prepped with alcohol. A 27 gauge 1.5 in needle was used. The needle was placed on the target nerves including supraorbital nerve, supratrochlear nerve, auriculotemporal nerve, lesser occipital nerve and greater occipital nerve bilaterally. Aspiration was negative for heme and synovial fluid. 0.5-1 cc of ropivacaine 0.5% was injected at each site. The skin was cleansed and hemostasis was ensured. The patient tolerated the procedure well and no complications were encountered. Following the procedure the patient's vital signs were stable. The patient was discharged home in good condition with post-procedural instructions. Time Out: Immediately prior to the procedure, the following was verbally confirmed that there is a signed consent form and that the correct patient, planned procedure, site and side are consistent with documentation and that necessary equipment and/or blood products are available prior to the start of the case. Complications: none EBL: <1 cc Additional procedure code (CPT) needed (Trigeminal branches block) Results Reviewed Results Reviewed: No imaging is available for review. Assessment & Plan Assessment & Plan (1) Headache: Code(s): R51.9 - Headache, unspecified Category: Medical Plan Patient is status post bilateral pericranial nerve blocks. Patient tolerated procedure well and was discharged home in stable condition with discharge instructions. All questions were answered. Follow up as needed. Scribed for Dr. Pickett by Paul Sultana, medical laboratory specialist, on 01/07/2024. I, Dr. Pickett, have personally reviewed and agree with the information entered by the scribe. Coding Level of Care Code Procedure Only Diagnoses Headache R51.9
[2024-01-07 08:58] VITALS: BP 112/77; PULSE 95; RESP 14; O2SAT 94; BMI 33.7
== END 2024-01-07 09:11 | disposition home or self-care (01) ==
PROVIDERS: PCP Internal Medicine; Visit Provider Internal Medicine
DX: R51.9 Headache, unspecified (principal)
CPT/HCPCS: 64405; 64450

== ENCOUNTER → 2024-01-07 08:43 | Outpatient (BNVA) | payer OTHER, SELFPAY | PROVIDERS: PCP Internal Medicine; Visit Provider Internal Medicine | DX: R51.9 Headache, unspecified (principal) | CPT/HCPCS: 64405; 64450; J2795 ==

== ENCOUNTER 2024-01-21 08:53 | Outpatient (AMB) | payer OTHER, SELFPAY ==
--- NOTE | 2024-01-21 08:55 | MHC.OFFVIS ---
Vital Signs 01/21/24 08:56 Height 5 ft 8.5 in BP 110/82 Blood Pressure Location Lt brachial Position Sitting Respiration 14 Pulse 93 Pulse Source Pulse Oximeter Pulse Oximetry (%) 98 Oxygen Delivery Method Room Air Intake Visit Reasons: PERICRANIAL NB Allergies No Known Allergies [No Known Allergies*] Allergy (Verified 01/21/24 08:57) Medication List - Last Reconciled 01/21/24 by Kimmy Lombardi LPN atorvastatin 10 mg PO DAILY buspirone 30 mg PO BID carvedilol phosphate ER 20 mg PO DAILY desvenlafaxine succinate ER (Pristiq) 100 mg PO DAILY gemfibrozil (Lopid) 600 mg PO BID [ketamine 240 mg LINGUAL 2XW] lisinopril 5 mg PO BEDTIME olanzapine 20 mg PO BEDTIME olanzapine-samidorphan 20-10 mg (Lybalvi) 1 tab PO BEDTIME omeprazole 20 mg PO DAILY HPI HPI PERICRANIAL NB: Details: 48-year-old male who presents today to the office for a pericranial nerve block. The patient reports 100% relief following the procedure. Patient presents for scheduled procedure. Denies any recent cough, cold, infection, fever or other significant changes in medical history since last office visit. Past procedures 01/07/24: Agueda-cranial nerve blocks, bilateral: 100% relief. 11/29/23: Agueda-cranial nerve blocks, bilateral: 90% relief for 1 week. 11/02/23: Agueda-cranial nerve blocks: 90% relief for 1 week. 10/15/23: Agueda-cranial nerve blocks: 90% relief for one week. [facility] Medical History History of TMJ syndrome Anxiety Depression Other secondary scoliosis, thoracolumbar region Other fatigue Syncope and collapse Low back pain Acute pharyngitis Acute kidney failure Dizziness and giddiness Postconcussional syndrome Cervicalgia Fall (on) (from) other stairs and steps, initial encounter Nausea History of falling Major depressive disorder Essential (primary) hypertension Abnormal weight gain GERD with esophagitis Unspecified right bundle-branch block Chronic kidney disease, stage 1 Other obesity due to excess calories Vitamin D deficiency Prediabetes Abnormal results of liver function studies Mixed hyperlipidemia Headache Flexural eczema Chronic kidney disease, stage 2 (mild) Fatty liver Hypercholesteremia Hypertension Migraines Surgical History History of esophagogastroduodenoscopy (EGD) H/O left knee surgery Social History Patient Tobacco Use Status: Never used Tobacco Current occupational status: unemployed Current occupation: Right Handed Review of Systems Const All systems reviewed & are unremarkable except as noted in HPI and below Physical Exam Vital Signs: Last Vital Signs Pulse 93 01/21/24 08:56 Resp 14 01/21/24 08:56 BP 110/82 01/21/24 08:56 Pulse Ox 98 01/21/24 08:56 Oxygen Delivery Method Room Air 01/21/24 08:56 General: Appears afebrile. Alert and oriented. Mood and affect appropriate. Follows and participates in conversation appropriately. Respiratory effort is unlabored. Able to transition from sit to stand unassisted. Ambulates with bilaterally normal heel strike and toe off. Office Procedures Nerve Block Details: Agueda-cranial nerve blocks, bilateral After obtaining written consent, pre-procedure blood pressure and heart rate were stable and recorded in the nursing record. The patient was in the sitting position. The skin overlying the target pericranial nerves was prepped with alcohol. A 27 gauge 1.5 in needle was used. The needle was placed on the target nerves including supraorbital nerve, supratrochlear nerve, auriculotemporal nerve, lesser occipital nerve and greater occipital nerve bilaterally. Aspiration was negative for heme and synovial fluid. 0.5-1 cc of ropivacaine 0.5% was injected at each site. The skin was cleansed and hemostasis was ensured. The patient tolerated the procedure well and no complications were encountered. Following the procedure the patient's vital signs were stable. The patient was discharged home in good condition with post-procedural instructions. Time Out: Immediately prior to the procedure, the following was verbally confirmed that there is a signed consent form and that the correct patient, planned procedure, site and side are consistent with documentation and that necessary equipment and/or blood products are available prior to the start of the case. Complications: none EBL: <1 cc Procedure code (CPT) selection complete Results Reviewed Results Reviewed: No imaging is available for review. Assessment & Plan Assessment & Plan (1) Headache: Code(s): R51.9 - Headache, unspecified Category: Medical Plan Patient is status post bilateral pericranial nerve blocks. Patient tolerated procedure well and was discharged home in stable condition with discharge instructions. All questions were answered. The patient will follow up in 2 weeks to repeat the injection. Scribed for Dr. Pickett by Palu Sultana, medical planner, on 01/21/2024. I, Dr. Pickett, have personally reviewed and agree with the information entered by the scribe. Coding Level of Care Code Procedure Only Diagnoses Headache R51.9
[2024-01-21 08:56] VITALS: BP 110/82; PULSE 93; RESP 14; O2SAT 98
== END 2024-01-21 09:12 | disposition home or self-care (01) ==
LOC: HO.PMC 08:53
PROVIDERS: PCP Internal Medicine; Visit Provider Internal Medicine
DX: R51.9 Headache, unspecified (principal)
CPT/HCPCS: 64405; 64450

== ENCOUNTER → 2024-01-21 08:53 | Outpatient (BNVA) | payer OTHER, SELFPAY | PROVIDERS: PCP Internal Medicine; Visit Provider Internal Medicine | DX: R51.9 Headache, unspecified (principal) | CPT/HCPCS: 64405; 64450; J2795 ==

== ENCOUNTER 2024-02-06 09:42 | Outpatient (AMB) | payer OTHER, SELFPAY ==
--- NOTE | 2024-02-06 09:53 | A.OFFVIS_ITS ---
Vital Signs 02/06/24 09:56 Height 5 ft 8.5 in Weight 215 lb BMI 32.2 BP 95/62 Blood Pressure Location Lt brachial Position Sitting Respiration 14 Pulse 74 Pulse Source Pulse Oximeter Pulse Oximetry (%) 97 Oxygen Delivery Method Room Air Intake Visit Reasons: pericranial NB Allergies No Known Allergies [No Known Allergies*] Allergy (Verified 02/06/24 09:58) Medication List - Last Reconciled 02/06/24 by Kimmy Lombardi LPN atorvastatin 10 mg PO DAILY buspirone 30 mg PO BID carvedilol phosphate ER 20 mg PO DAILY desvenlafaxine succinate ER (Pristiq) 100 mg PO DAILY gemfibrozil (Lopid) 600 mg PO BID [ketamine 240 mg LINGUAL 2XW] lisinopril 5 mg PO BEDTIME olanzapine 20 mg PO BEDTIME olanzapine-samidorphan 20-10 mg (Lybalvi) 1 tab PO BEDTIME omeprazole 20 mg PO DAILY HPI HPI pericranial NB: Details: 48-year-old male who presents to the office for pericranial nerve block Patient presents for scheduled procedure. Denies any recent cough, cold, infection, fever or other significant changes in medical history since last office visit. Past procedures: 01/07/24: Agueda-cranial nerve blocks, bilateral: 100% relief. 11/29/23: Agueda-cranial nerve blocks, bilateral: 90% relief for 1 week. 11/02/23: Agueda-cranial nerve blocks: 90% relief for 1 week. 10/15/23: Agueda-cranial nerve blocks: 90% relief for one week. [facility] Medical History History of TMJ syndrome Anxiety Depression Other secondary scoliosis, thoracolumbar region Other fatigue Syncope and collapse Low back pain Acute pharyngitis Acute kidney failure Dizziness and giddiness Postconcussional syndrome Cervicalgia Fall (on) (from) other stairs and steps, initial encounter Nausea History of falling Major depressive disorder Essential (primary) hypertension Abnormal weight gain GERD with esophagitis Unspecified right bundle-branch block Chronic kidney disease, stage 1 Other obesity due to excess calories Vitamin D deficiency Prediabetes Abnormal results of liver function studies Mixed hyperlipidemia Headache Flexural eczema Chronic kidney disease, stage 2 (mild) Fatty liver Hypercholesteremia Hypertension Migraines Surgical History History of esophagogastroduodenoscopy (EGD) H/O left knee surgery Social History Patient Tobacco Use Status: Never used Tobacco Current occupational status: unemployed Current occupation: Right Handed Review of Systems Const All systems reviewed & are unremarkable except as noted in HPI and below Physical Exam Vital Signs: Last Vital Signs Pulse 74 02/06/24 09:56 Resp 14 02/06/24 09:56 BP 95/62 02/06/24 09:56 Pulse Ox 97 02/06/24 09:56 Oxygen Delivery Method Room Air 02/06/24 09:56 BMI result Body Mass Index 32.2 General: Appears afebrile. Alert and oriented. Mood and affect appropriate. Follows and participates in conversation appropriately. Respiratory effort is unlabored. Able to transition from sit to stand unassisted. Office Procedures Nerve Block Details: Agueda-cranial nerve blocks, bilateral After obtaining written consent, pre-procedure blood pressure and heart rate were stable and recorded in the nursing record. The patient was in the sitting position. The skin overlying the target pericranial nerves was prepped with alcohol. A 27 gauge 1.5 in needle was used. The needle was placed on the target nerves including supraorbital nerve, supratrochlear nerve, auriculotemporal nerve, lesser occipital nerve and greater occipital nerve bilaterally. Aspiration was negative for heme and synovial fluid. 0.5-1 cc of ropivacaine 0.5% was injected at each site. The skin was cleansed and hemostasis was ensured. The patient tolerated the procedure well and no complications were encountered. Following the procedure the patient's vital signs were stable. The patient was discharged home in good condition with post-procedural instructions. Time Out: Immediately prior to the procedure, the following was verbally confirmed that there is a signed consent form and that the correct patient, planned procedure, site and side are consistent with documentation and that necessary equipment and/or blood products are available prior to the start of the case. Complications: none EBL: <1 cc Additional procedure code (CPT) needed Results Reviewed Results Reviewed: No imaging is available for review Assessment & Plan Assessment & Plan (1) Headache: Code(s): R51.9 - Headache, unspecified Category: Medical Plan Patient will return to clinic in 2 weeks for repeat the nerve block injection. Scribed for Dr. Pickett by Abdirizak Lamas medical equipment repairer, on 02/06/2024. I, Dr. Pickett, have personally reviewed and agree with the information entered by the scribe. Coding Level of Care Code Procedure Only Diagnoses Headache R51.9
[2024-02-06 09:56] VITALS: BP 95/62; PULSE 74; RESP 14; O2SAT 97; BMI 32.2
== END 2024-02-06 10:05 | disposition home or self-care (01) ==
PROVIDERS: PCP Internal Medicine; Visit Provider Internal Medicine
DX: R51.9 Headache, unspecified (principal)
CPT/HCPCS: 64405; 64450

== ENCOUNTER → 2024-02-06 09:42 | Outpatient (BNVA) | payer OTHER, SELFPAY | PROVIDERS: PCP Internal Medicine; Visit Provider Internal Medicine | DX: R51.9 Headache, unspecified (principal) | CPT/HCPCS: 64405; 64450; J2795 ==

== ENCOUNTER 2024-02-20 09:43 | Outpatient (AMB) | payer OTHER, SELFPAY ==
--- NOTE | 2024-02-20 09:58 | A.OFFVIS_ITS ---
Vital Signs 02/20/24 10:00 Height 5 ft 8.5 in Weight 215 lb BMI 32.2 BP 115/76 Blood Pressure Location Lt brachial Position Sitting Respiration 14 Pulse 77 Pulse Source Pulse Oximeter Pulse Oximetry (%) 95 Oxygen Delivery Method Room Air Intake Visit Reasons: 2 WEEK FOLLOW UP Allergies No Known Allergies [No Known Allergies*] Allergy (Verified 02/20/24 10:01) Medication List - Last Reconciled 02/20/24 by Kimmy Lombardi LPN atorvastatin 10 mg PO DAILY buspirone 30 mg PO BID carvedilol phosphate ER 20 mg PO DAILY desvenlafaxine succinate ER (Pristiq) 100 mg PO DAILY gemfibrozil (Lopid) 600 mg PO BID [ketamine 240 mg LINGUAL 2XW] lisinopril 5 mg PO BEDTIME olanzapine 20 mg PO BEDTIME olanzapine-samidorphan 20-10 mg (Lybalvi) 1 tab PO BEDTIME omeprazole 20 mg PO DAILY HPI HPI 2 WEEK FOLLOW UP: Details: 48-year-old male who presents to the office for pericranial nerve blocks. Denies any recent cough, cold, infection, fever or other significant changes in medical history since last office visit. The patient reports 100 % relief following the procedure. Past procedures: 02/06/24: Agueda-cranial nerve blocks, bilateral: 100% relief for 2 weeks. 01/21/24: Agueda-cranial nerve blocks, bilateral: 100% relief for 2 weeks. 01/07/24: Agueda-cranial nerve blocks, bilateral: 100% relief for 2 weeks. 11/29/23: Agueda-cranial nerve blocks, bilateral: 90% relief for 1 week. 11/02/23: Agueda-cranial nerve blocks: 90% relief for 1 week. 10/15/23: Agueda-cranial nerve blocks: 90% relief for one week. [facility] Medical History History of TMJ syndrome Anxiety Depression Other secondary scoliosis, thoracolumbar region Other fatigue Syncope and collapse Low back pain Acute pharyngitis Acute kidney failure Dizziness and giddiness Postconcussional syndrome Cervicalgia Fall (on) (from) other stairs and steps, initial encounter Nausea History of falling Major depressive disorder Essential (primary) hypertension Abnormal weight gain GERD with esophagitis Unspecified right bundle-branch block Chronic kidney disease, stage 1 Other obesity due to excess calories Vitamin D deficiency Prediabetes Abnormal results of liver function studies Mixed hyperlipidemia Headache Flexural eczema Chronic kidney disease, stage 2 (mild) Fatty liver Hypercholesteremia Hypertension Migraines Surgical History History of esophagogastroduodenoscopy (EGD) H/O left knee surgery Social History Patient Tobacco Use Status: Never used Tobacco Current occupational status: unemployed Current occupation: Right Handed Physical Exam Vital Signs: Last Vital Signs Pulse 77 02/20/24 10:00 Resp 14 02/20/24 10:00 BP 115/76 02/20/24 10:00 Pulse Ox 95 02/20/24 10:00 Oxygen Delivery Method Room Air 02/20/24 10:00 BMI result Body Mass Index 32.2 General: Appears afebrile. Alert and oriented. Mood and affect appropriate. Follows and participates in conversation appropriately. Respiratory effort is unlabored. Able to transition from sit to stand unassisted. Ambulates with bilaterally normal heel strike and toe off. Office Procedures Nerve Block Details: After obtaining written consent, pre-procedure blood pressure and heart rate we re stable and recorded in the nursing record. The patient was in the sitting position. The skin overlying the target pericranial nerves was prepped with alcohol. A 27 gauge 1.5 in needle was used. The needle was placed on the target nerves including supraorbital nerve, supratrochlear nerve, auriculotemporal nerve, lesser occipital nerve and greater occipital nerve bilaterally. Aspiration was negative for heme and synovial fluid. 0.5-1 cc of ropivacaine 0.5% was injected at each site. The skin was cleansed and hemostasis was ensured. The patient tolerated the procedure well and no complications were encountered. Following the procedure the patient's vital signs were stable. The patient was discharged home in good condition with post-procedural instructions.Time Out: Immediately prior to the procedure, the following was verbally confirmed that there is a signed consent form and that the correct patient, planned procedure, site and side are consistent with documentation and that necessary equipment and/or blood products are available prior to the start of the case.Complications: none EBL: <1 cc Procedure code (CPT) selection complete Procedure code (CPT) selection complete Assessment & Plan Assessment & Plan (1) Headache: Code(s): R51.9 - Headache, unspecified Category: Medical Plan Patient is status post bilateral pericranial nerve blocks. Patient tolerated procedure well and was discharged home in stable condition with discharge instructions. All questions were answered. The patient will follow up in 2 weeks to repeat the nerve block injection. Scribed for Dr. Pickett by Kartik medical illustrator, on 02/20/2024. I, Dr. Pickett, have personally reviewed and agree with the information entered by the scribe. Coding Level of Care Code Procedure Only Diagnoses Headache R51.9
[2024-02-20 10:00] VITALS: BP 115/76; PULSE 77; RESP 14; O2SAT 95; BMI 32.2
== END 2024-02-20 10:11 | disposition home or self-care (01) ==
PROVIDERS: PCP Internal Medicine; Visit Provider Internal Medicine
DX: R51.9 Headache, unspecified (principal)
CPT/HCPCS: 64405; 64450

== ENCOUNTER → 2024-02-20 09:43 | Outpatient (BNVA) | payer OTHER, SELFPAY | PROVIDERS: PCP Internal Medicine; Visit Provider Internal Medicine | DX: R51.9 Headache, unspecified (principal) | CPT/HCPCS: 64405; 64450; J2795 ==

== ENCOUNTER 2024-03-05 08:40 | Outpatient (AMB) | payer OTHER, SELFPAY ==
--- NOTE | 2024-03-05 08:51 | MHC.OFFVIS ---
Vital Signs 03/05/24 08:52 Height 5 ft 8.5 in Weight 215 lb BMI 32.2 BP 98/60 Blood Pressure Location Lt brachial Position Sitting Respiration 14 Pulse 73 Pulse Source Pulse Oximeter Pulse Oximetry (%) 96 Oxygen Delivery Method Room Air Intake Visit Reasons: 2 WEEK FOLLOW UP Allergies No Known Allergies [No Known Allergies*] Allergy (Verified 03/05/24 08:52) Medication List - Last Reconciled 03/05/24 by Kimmy Lombardi LPN atorvastatin 10 mg PO DAILY buspirone 30 mg PO BID carvedilol phosphate ER 20 mg PO DAILY desvenlafaxine succinate ER (Pristiq) 100 mg PO DAILY gemfibrozil (Lopid) 600 mg PO BID [ketamine 240 mg LINGUAL 2XW] lisinopril 5 mg PO BEDTIME olanzapine 20 mg PO BEDTIME olanzapine-samidorphan 20-10 mg (Lybalvi) 1 tab PO BEDTIME omeprazole 20 mg PO DAILY HPI HPI 2 WEEK FOLLOW UP: Details: 49-year-old male who presents to the office for agueda-cranial nerve blocks, bilateral. Patient presents today for the scheduled procedure. Denies any recent cough, cold, infection, fever or other significant changes in medical history since last office visit. Past procedures: 02/20/24: Agueda-cranial nerve blocks, bilateral: 100% relief for 2 weeks 02/06/24: Agueda-cranial nerve blocks, bilateral: 100% relief for 2 weeks. 01/21/24: Agueda-cranial nerve blocks, bilateral: 100% relief for 2 weeks. 01/07/24: Agueda-cranial nerve blocks, bilateral: 100% relief for 2 weeks. 11/29/23: Agueda-cranial nerve blocks, bilateral: 90% relief for 1 week. 11/02/23: Agueda-cranial nerve blocks: 90% relief for 1 week. 10/15/23: Agueda-cranial nerve blocks: 90% relief for one week. [facility] Medical History History of TMJ syndrome Anxiety Depression Other secondary scoliosis, thoracolumbar region Other fatigue Syncope and collapse Low back pain Acute pharyngitis Acute kidney failure Dizziness and giddiness Postconcussional syndrome Cervicalgia Fall (on) (from) other stairs and steps, initial encounter Nausea History of falling Major depressive disorder Essential (primary) hypertension Abnormal weight gain GERD with esophagitis Unspecified right bundle-branch block Chronic kidney disease, stage 1 Other obesity due to excess calories Vitamin D deficiency Prediabetes Abnormal results of liver function studies Mixed hyperlipidemia Headache Flexural eczema Chronic kidney disease, stage 2 (mild) Fatty liver Hypercholesteremia Hypertension Migraines Surgical History History of esophagogastroduodenoscopy (EGD) H/O left knee surgery Social History Patient Tobacco Use Status: Never used Tobacco Current occupational status: unemployed Current occupation: Right Handed Review of Systems Const All systems reviewed & are unremarkable except as noted in HPI and below Physical Exam Vital Signs: Last Vital Signs Pulse 73 03/05/24 08:52 Resp 14 03/05/24 08:52 BP 98/60 03/05/24 08:52 Pulse Ox 96 03/05/24 08:52 Oxygen Delivery Method Room Air 03/05/24 08:52 BMI result Body Mass Index 32.2 General: Appears afebrile. Alert and oriented. Mood and affect appropriate. Follows and participates in conversation appropriately. Respiratory effort is unlabored. Able to transition from sit to stand unassisted. Office Procedures Nerve Block Details: Agueda-cranial nerve blocks, bilateral After obtaining written consent, pre-procedure blood pressure and heart rate were stable and recorded in the nursing record. The patient was in the sitting position. The skin overlying the target pericranial nerves was prepped with alcohol. A 27 gauge 1.5 in needle was used. The needle was placed on the target nerves including supraorbital nerve, supratrochlear nerve, auriculotemporal nerve, lesser occipital nerve and greater occipital nerve bilaterally. Aspiration was negative for heme and synovial fluid. 0.5-1 cc of ropivacaine 0.5% was injected at each site. The skin was cleansed and hemostasis was ensured. The patient tolerated the procedure well and no complications were encountered. Following the procedure the patient's vital signs were stable. The patient was discharged home in good condition with post-procedural instructions. Time Out: Immediately prior to the procedure, the following was verbally confirmed that there is a signed consent form and that the correct patient, planned procedure, site and side are consistent with documentation and that necessary equipment and/or blood products are available prior to the start of the case. Procedure code (CPT) selection complete Results Reviewed Results Reviewed: No imaging is available for review Assessment & Plan Assessment & Plan (1) Headache: Code(s): R51.9 - Headache, unspecified Category: Medical Plan Patient is status post agueda-cranial nerve blocks, bilateral. Patient tolerated procedure well and was discharged home in stable condition with discharge instructions. All questions were answered. Repeat as needed. Scribed for Dr. Pickett by Abidrizak Lamas medical information officer, on 03/05/2024. I, Dr. Pickett, have personally reviewed and agree with the information entered by the scribe. Coding Level of Care Code Procedure Only Diagnoses Headache R51.9
[2024-03-05 08:52] VITALS: BP 98/60; PULSE 73; RESP 14; O2SAT 96; BMI 32.2
== END 2024-03-05 09:03 | disposition home or self-care (01) ==
PROVIDERS: PCP Internal Medicine; Visit Provider Internal Medicine
DX: R51.9 Headache, unspecified (principal)
CPT/HCPCS: 64400

== ENCOUNTER → 2024-03-05 08:40 | Outpatient (BNVA) | payer OTHER, SELFPAY | PROVIDERS: PCP Internal Medicine; Visit Provider Internal Medicine | DX: R51.9 Headache, unspecified (principal) | CPT/HCPCS: 64400; J2795 ==

== ENCOUNTER 2024-03-19 09:19 | Outpatient (AMB) | payer OTHER, SELFPAY ==
[2024-03-19 09:23] VITALS: BP 106/64; PULSE 75; RESP 14; O2SAT 95; BMI 32.2
--- NOTE | 2024-03-19 09:23 | MHC.OFFVIS ---
Vital Signs 03/19/24 09:23 Height 5 ft 8.5 in Weight 215 lb BMI 32.2 BP 106/64 Blood Pressure Location Lt brachial Position Sitting Respiration 14 Pulse 75 Pulse Source Pulse Oximeter Pulse Oximetry (%) 95 Oxygen Delivery Method Room Air Intake Visit Reasons: Nerve Block Allergies No Known Allergies [No Known Allergies*] Allergy (Verified 03/19/24 09:24) Medication List - Last Reconciled 03/19/24 by Kimmy Lombardi LPN atorvastatin 10 mg PO DAILY buspirone 30 mg PO BID carvedilol phosphate ER 20 mg PO DAILY desvenlafaxine succinate ER (Pristiq) 100 mg PO DAILY gemfibrozil (Lopid) 600 mg PO BID [ketamine 240 mg LINGUAL 2XW] lisinopril 5 mg PO BEDTIME olanzapine 20 mg PO BEDTIME olanzapine-samidorphan 20-10 mg (Lybalvi) 1 tab PO BEDTIME omeprazole 20 mg PO DAILY HPI HPI Nerve Block: Details: 49-year-old male who presents to the office for pericranial nerve blocks. Denies any recent cough, cold, infection, fever or other significant changes in medical history since last office visit. The patient reports 100 % relief following the procedure. Past procedures: 03/05/24: Agueda-cranial nerve blocks, bilateral: 100% relief for 2 weeks. 02/20/24: Agueda-cranial nerve blocks, bilateral: 100% relief for 2 weeks. 02/06/24: Agueda-cranial nerve blocks, bilateral: 100% relief for 2 weeks. 01/21/24: Agueda-cranial nerve blocks, bilateral: 100% relief for 2 weeks. 01/07/24: Agueda-cranial nerve blocks, bilateral: 100% relief for 2 weeks. 11/29/23: Agueda-cranial nerve blocks, bilateral: 90% relief for 1 week. 11/02/23: Agueda-cranial nerve blocks: 90% relief for 1 week. 10/15/23: Agueda-cranial nerve blocks: 90% relief for one week. [facility] Medical History History of TMJ syndrome Anxiety Depression Other secondary scoliosis, thoracolumbar region Other fatigue Syncope and collapse Low back pain Acute pharyngitis Acute kidney failure Dizziness and giddiness Postconcussional syndrome Cervicalgia Fall (on) (from) other stairs and steps, initial encounter Nausea History of falling Major depressive disorder Essential (primary) hypertension Abnormal weight gain GERD with esophagitis Unspecified right bundle-branch block Chronic kidney disease, stage 1 Other obesity due to excess calories Vitamin D deficiency Prediabetes Abnormal results of liver function studies Mixed hyperlipidemia Headache Flexural eczema Chronic kidney disease, stage 2 (mild) Fatty liver Hypercholesteremia Hypertension Migraines Surgical History History of esophagogastroduodenoscopy (EGD) H/O left knee surgery Social History Patient Tobacco Use Status: Never used Tobacco Current occupational status: unemployed Current occupation: Right Handed Physical Exam Vital Signs: Last Vital Signs Pulse 75 03/19/24 09:23 Resp 14 03/19/24 09:23 BP 106/64 03/19/24 09:23 Pulse Ox 95 03/19/24 09:23 Oxygen Delivery Method Room Air 03/19/24 09:23 BMI result Body Mass Index 32.2 General: Appears afebrile. Alert and oriented. Mood and affect appropriate. Follows and participates in conversation appropriately. Respiratory effort is unlabored. Able to transition from sit to stand unassisted. Ambulates with bilaterally normal heel strike and toe off. Office Procedures Nerve Block Details: After obtaining written consent, pre-procedure blood pressure and heart rate were stable and recorded in the nursing record. The patient was in the sitting position. The skin overlying the target pericranial nerves was prepped with alcohol. A 27 gauge 1.5 in needle was used. The needle was placed on the target nerves including supraorbital nerve, supratrochlear nerve, auriculotemporal nerve, lesser occipital nerve and greater occipital nerve bilaterally. Aspiration was negative for heme and synovial fluid. 0.5-1 cc of ropivacaine 0.5% was injected at each site. The skin was cleansed and hemostasis was ensured.The patient tolerated the procedure well and no complications were encountered. Following the procedure the patient's vital signs were stable. The patient was discharged home in good condition with post-procedural instructions. Time Out: Immediately prior to the procedure, the following was verbally confirmed that there is a signed consent form and that the correct patient, planned procedure, site and side are consistent with documentation and that necessary equipment and/or blood products are available prior to the start of the case.Complications: none Procedure code (CPT) selection complete Assessment & Plan Assessment & Plan (1) Occipital neuralgia: Code(s): M54.81 - Occipital neuralgia Category: Medical Qualifiers: Laterality: bilateral Qualified Code(s): M54.81 - Occipital neuralgia (2) Headache: Code(s): R51.9 - Headache, unspecified Category: Medical Qualifiers: Headache chronicity pattern: chronic headache Plan Patient is status post bilateral pericranial nerve blocks. Patient tolerated procedure well and was discharged home in stable condition with discharge instructions. So far he has had several rounds of bilateral peroneal nerve blocks with excellent relief. However this relief only lasts for 2 weeks at a time and he is interested in more longer-term therapies. I discussed potential for occipital nerve stimulation to see if that might help his headache syndrome. We can consider a temporary lead placement at 1st before consideration of a permanent implant. I scanned his occipital region with the ultrasound in the office today which showed deep but accessible occipital neurovascular bundle. He is amenable to proceeding with temporary PNS placement, starting with the right side followed by the left side 2 weeks later. Discussed the risks and benefits of the temporary occipital nerve stimulation with the patient in detail. All questions were answered. The patient is on board with the plan. Justification for interventional therapy: ? Patient with average pain > 6/10 ? Patient has exhausted conservative therapy. Peripheral nerve blocks have only provided temporary relief. Migraine medications and Botox have not been helpful. . Patient has a good understanding of their pain condition and has appropriate mental and social support Scribed for Dr. Pickett by Kartik regional medical director, on 03/19/2024. I, Dr. Pickett, have personally reviewed and agree with the information entered by the scribe. Coding Level of Care Code Est Pt Level 4 ([id number]) Diagnoses Bilateral occipital neuralgia M54.81 Laterality: bilateral Headache R51.9 Headache chronicity pattern: chronic headache
== END 2024-03-19 10:49 | disposition home or self-care (01) ==
PROVIDERS: PCP Internal Medicine; Visit Provider Internal Medicine
DX: M54.81 Occipital neuralgia (principal); R51.9 Headache, unspecified
CPT/HCPCS: 99214

== ENCOUNTER → 2024-03-19 09:19 | Outpatient (BNVA) | payer OTHER, SELFPAY | PROVIDERS: PCP Internal Medicine; Visit Provider Internal Medicine | DX: M54.81 Occipital neuralgia (principal); R51.9 Headache, unspecified | CPT/HCPCS: 64405; 64450; J2795 ==

== ENCOUNTER 2024-03-27 06:13 | Outpatient (REF) | payer OTHER, SELFPAY | END 2024-03-27 06:14 | disposition home or self-care (01) | LOC: CF 06:13 | PROVIDERS: Visit Provider Internal Medicine | DX: M54.81 Occipital neuralgia (principal) | CPT/HCPCS: 64555; C1778 ==

== ENCOUNTER 2024-03-27 10:11 | Outpatient (AMB) | payer OTHER, SELFPAY ==
[2024-03-27 10:16] VITALS: BP 119/77; PULSE 73; RESP 17; O2SAT 96
--- NOTE | 2024-03-27 10:58 | A.OFFVIS_ITS ---
Vital Signs 03/27/24 10:16 03/27/24 11:30 BP 119/77 121/77 Blood Pressure Location Lt brachial Lt brachial Position Sitting Sitting Respiration 17 Pulse 73 71 Pulse Source Pulse Oximeter Pulse Oximeter Pulse Oximetry (%) 96 96 Oxygen Delivery Method Room Air Room Air Comment Pre-op Post-op Intake Visit Reasons: right occipital Sprint Allergies No Known Allergies [No Known Allergies*] Allergy (Verified 03/19/24 09:24) HPI HPI right occipital Sprint: Details: Patient presents for scheduled procedure. Denies any recent cough, cold, infection, fever or other significant changes in medical history since last office visit. [facility] Medical History History of TMJ syndrome Anxiety Depression Other secondary scoliosis, thoracolumbar region Other fatigue Syncope and collapse Low back pain Acute pharyngitis Acute kidney failure Dizziness and giddiness Postconcussional syndrome Cervicalgia Fall (on) (from) other stairs and steps, initial encounter Nausea History of falling Major depressive disorder Essential (primary) hypertension Abnormal weight gain GERD with esophagitis Unspecified right bundle-branch block Chronic kidney disease, stage 1 Other obesity due to excess calories Vitamin D deficiency Prediabetes Abnormal results of liver function studies Mixed hyperlipidemia Headache Flexural eczema Chronic kidney disease, stage 2 (mild) Fatty liver Hypercholesteremia Hypertension Migraines Surgical History History of esophagogastroduodenoscopy (EGD) H/O left knee surgery Social History Patient Tobacco Use Status: Never used Tobacco Current occupational status: unemployed Current occupation: Right Handed Physical Exam Vital Signs: Last Vital Signs Pulse 71 03/27/24 11:30 Resp 17 03/27/24 10:16 BP 121/77 03/27/24 11:30 Pulse Ox 96 03/27/24 11:30 Oxygen Delivery Method Room Air 03/27/24 11:30 Office Procedures Details: Occipital Nerve Stimulation Lead Placement, SPR (Sprint) System, Right ? After the risks, benefits and alternatives were discussed with the patient and informed consent was obtained, patient was placed in the prone position and padded to foster comfort. The skin overlying the cervical spine was prepped and draped in sterile fashion. Ultrasound was used to identify the C2 spinous process and lamina. After identifying the occipital artery and nerve, the skin around the planned entry point and the subcutaneous tissues were injected with lidocaine 1%. An introducer needle and stimulating probe were assembled, inserted and advanced under ultrasound guidance. The introducer needle was delivered to a location in proximity to the nerve. Multiple stimulation parameters were used to deliver stimulation to the occipital nerve in concert with stimulating at multiple positions around the nerve. Nerve target acquisition was confirmed noting generation of paresthesias in the high cervical and occipital regions corresponding to the nerve being stimulated. Various electrical parameter combinations were tested, and the lead location was adjusted (physically relocated) until the patient indicated paresthesia/muscle tension overlapping the occipital region. The stimulating probe was removed from the introducer and a percutaneous lead was guided through the needle and delivered to a location in similar proximity to the nerve. Final location was verified with electrical stimulation and documented with ultrasound. The introducer needle was removed, and the exposed end of the percutaneous lead was attached to an external stimulator unit. Various electrical parameter combinations were again tested until the patient indicated paresthesia or muscle tension in the occipital region. After confirming that lead impedance was in the normal range, the external unit was detached, the needle was removed, and the lead was anchored at the skin. The lead was threaded into the connector block and electrical continuity and desired patient response was confirmed. The connector block was attached to the external stimulator unit. The site was covered with a sterile occlusive pressure dressing. The patient was observed for stability of vital signs and comfort. Patient was dischared in stable condition. Sprint PNS Device: Sprint PNS Device [id number] Percutaneous Peripheral Neuroelectrode Procedure: 29195 - Percutaneous Peripheral Neuroelectrode Procedure code (CPT) selection complete Office Meds lidocaine (PF) 50 mg/5 mL (1 %) injection syringe Performing Provider: Marsha Tavarez APRN, PRANAV Performing Location: [facility] [place] [facility] Administered by: Kimmy Lombardi LPN on 03/27/24 10:58 Dose Route Admin Location Dispensed Lot Number Expiration Date [employer] Food And Beverage Coordinator 5 mL subcut 5 mL Assessment & Plan Assessment & Plan (1) Occipital neuralgia: Code(s): M54.81 - Occipital neuralgia Category: Medical Qualifiers: Laterality: bilateral Qualified Code(s): M54.81 - Occipital neuralgia Plan Patient is status post right temporary occipital nerve stimulator placement. Patient tolerated procedure well and was discharged home in stable condition with discharge instructions. All questions were answered. We will follow-up via telephone or in clinic to assess response to therapy. A follow-up appointment was made during today's visit. Orders: Orders [place] guidance in treatment room Today M54.81 - Occipital neuralgia AMB Sprint PNS Today M54.81 - Occipital neuralgia Coding Level of Care Code Procedure Only Diagnoses Bilateral occipital neuralgia M54.81 Laterality: bilateral CPT Codes Sprint PNS - Sprint PNS Device: Sprint PNS Device ([id number]) Sprint PNS - SPRINT: 39648 - Percutaneous Peripheral Neuroelectrode ([id number]) Implantable Device Implantable Device Implantable Devices Qty Food And Beverage Coordinator Implant Date Expiration Date Analgesic PENS system 1 [email or web address] 03/27/24 04/19/25
[2024-03-27 11:30] VITALS: BP 121/77; PULSE 71; O2SAT 96
== END 2024-03-27 11:40 | disposition home or self-care (01) ==
LOC: HO.PMCPRC 10:11
PROVIDERS: PCP Internal Medicine; Visit Provider Internal Medicine
DX: M54.81 Occipital neuralgia (principal)
CPT/HCPCS: 64555

== ENCOUNTER 2024-04-03 10:11 | Outpatient (AMB) | payer OTHER, SELFPAY ==
--- NOTE | 2024-04-03 10:20 | MHC.OFFVIS ---
Vital Signs 04/03/24 10:30 Height 5 ft 8.5 in Weight 220 lb BMI 33.0 BP 110/68 Blood Pressure Location Lt brachial Position Sitting Pulse 88 Pulse Source Pulse Oximeter Pulse Oximetry (%) 98 Oxygen Delivery Method Room Air Intake Visit Reasons: s/p occipital Sprint Intake Note: Pain today 01/27 Senior Center Director Required: No Accompanied by: Self / Same As Patient Allergies No Known Allergies [No Known Allergies*] Allergy (Verified 04/03/24 10:38) HPI Comments Details: Patient presents today 1 week status post Occipital Nerve Stimulation Lead Placement, SPR (Sprint) System, Right on 03/27/[address] Pickett. Patient reports 0% pain relief since the procedure without any paresthesia at 70 and no improvement in his symptoms. We were able to achieve positive paresthesia in the projection of right occipital region at 84-85 stimulation. Patient will continue to monitor and adjust his stimulation as needed with follow up in one week. The dressing was removed today. Lead insertion sites look clean, dry, intact, no redness, no swelling, no pathological discharge. Area was cleansed with Chloraprep. The lead area was cleansed with Chloraprep, applied Bacitracin and covered it with gauze and Tegaderm film dressing. Denies any recent cough, cold, infection, fever or other significant changes in medical history since last office visit. Past procedures: 03/27/24: Right Occipital Nerve Sprint PNS placement: 0% pain relief at 70 without paresthesia, +paresthesia at 84-85 03/05/24: Agueda-cranial nerve blocks, bilateral: 100% relief for 2 weeks. 02/20/24: Agueda-cranial nerve blocks, bilateral: 100% relief for 2 weeks. 02/06/24: Agueda-cranial nerve blocks, bilateral: 100% relief for 2 weeks. 01/21/24: Agueda-cranial nerve blocks, bilateral: 100% relief for 2 weeks. 01/07/24: Agueda-cranial nerve blocks, bilateral: 100% relief for 2 weeks. 11/29/23: Agueda-cranial nerve blocks, bilateral: 90% relief for 1 week. 11/02/23: Agueda-cranial nerve blocks: 90% relief for 1 week. 10/15/23: Agueda-cranial nerve blocks: 90% relief for one week. [facility] Medical History History of TMJ syndrome Anxiety Depression Other secondary scoliosis, thoracolumbar region Other fatigue Syncope and collapse Low back pain Acute pharyngitis Acute kidney failure Dizziness and giddiness Postconcussional syndrome Cervicalgia Fall (on) (from) other stairs and steps, initial encounter Nausea History of falling Major depressive disorder Essential (primary) hypertension Abnormal weight gain GERD with esophagitis Unspecified right bundle-branch block Chronic kidney disease, stage 1 Other obesity due to excess calories Vitamin D deficiency Prediabetes Abnormal results of liver function studies Mixed hyperlipidemia Headache Flexural eczema Chronic kidney disease, stage 2 (mild) Fatty liver Hypercholesteremia Hypertension Migraines Surgical History History of esophagogastroduodenoscopy (EGD) H/O left knee surgery Social History Patient Tobacco Use Status: Never used Tobacco Current occupational status: unemployed Current occupation: Right Handed Review of Systems Const All systems reviewed & are unremarkable except as noted in HPI and below Physical Exam Vital Signs: Last Vital Signs Pulse 88 04/03/24 10:30 BP 110/68 04/03/24 10:30 Pulse Ox 98 04/03/24 10:30 Oxygen Delivery Method Room Air 04/03/24 10:30 BMI result Body Mass Index 33.0 General: Appears afebrile. Alert and oriented. Mood and affect appropriate. Follows and participates in conversation appropriately. Respiratory effort is unlabored. Able to transition from sit to stand unassisted. Ambulates with bilaterally normal heel strike and toe off. Lead Insertion Site: Lead insertion site looks clean, dry, intact.? No pathological discharge, no swelling and no erythema.? Lead site dressings were changed today in the clinic. Achieved positive paresthesia at 84-85 on the right. Results Reviewed Results Reviewed: No imaging is available for review Assessment & Plan Assessment & Plan (1) Occipital neuralgia: Code(s): M54.81 - Occipital neuralgia Category: Medical Qualifiers: Laterality: bilateral Qualified Code(s): M54.81 - Occipital neuralgia Plan Patient is one week status post right temporary occipital nerve Sprint stimulator placement presented today with no pain relief since procedure with settings at 70 stimulation and no paresthesia. We were able to achieve positive paresthesia in the projection of right occipital region at 84-85 stimulation. Patient tolerating well, adjusting stimulation as needed without difficulty. Denies any untoward effects. Lead site dressings were changed today in the clinic. We will re-evaluate effectiveness of Sprint therapy next week. Thereafter, dressing changes will be performed at home by family per patient. All questions and concerns have been answered and patient agreed with the plan. Follow-up in 1 week for a dressing change and sooner as needed. Coding Level of Care Code Est Pt Level 3 (55157) Diagnoses Bilateral occipital neuralgia M54.81 Laterality: bilateral
[2024-04-03 10:30] VITALS: BP 110/68; PULSE 88; O2SAT 98; BMI 33.0
== END 2024-04-03 10:50 | disposition home or self-care (01) ==
PROVIDERS: PCP Internal Medicine; Visit Provider Nurse Practitioner Family
DX: M54.81 Occipital neuralgia (principal)
CPT/HCPCS: 99024

== ENCOUNTER → 2024-04-03 10:11 | Outpatient (BNVA) | payer OTHER, SELFPAY | PROVIDERS: PCP Internal Medicine; Visit Provider Nurse Practitioner Family ==

== ENCOUNTER 2024-05-23 08:44 | Outpatient (AMB) | payer OTHER, SELFPAY ==
--- NOTE | 2024-05-23 08:57 | A.OFFVIS_ITS ---
Vital Signs 05/23/24 08:58 Height 5 ft 8.5 in Weight 200 lb BMI 30.0 BP 127/79 Blood Pressure Location Lt brachial Position Sitting Respiration 14 Pulse 79 Pulse Source Pulse Oximeter Pulse Oximetry (%) 96 Oxygen Delivery Method Room Air Intake Visit Reasons: Sprint removal Allergies No Known Allergies [No Known Allergies*] Allergy (Verified 06/11/24 10:05) Medication List - Last Reconciled 05/23/24 by Kimmy Lombardi LPN atorvastatin 20 mg PO DAILY carvedilol phosphate ER 20 mg PO DAILY desvenlafaxine succinate ER (Pristiq) 100 mg PO DAILY gemfibrozil (Lopid) 600 mg PO BID [ketamine 240 mg LINGUAL 2XW] lisinopril 5 mg PO BEDTIME olanzapine 20 mg PO BEDTIME olanzapine-samidorphan 20-10 mg (Lybalvi) 1 tab PO BEDTIME omeprazole 40 mg PO DAILY HPI HPI Sprint removal: Details: 49-year-old male who presents today to the office for a sprint removal. The patient reports 100% relief following the procedure on the right side. He had no headaches for last four weeks. He is interested in proceeding with the left sided stimulator. Past procedures 03/27/24: Occipital Nerve Stimulation Lead Placement, SPR (Sprint) System, Right: 100 % relief. 03/19/2024: bilateral pericranial nerve blocks: % relief. 03/05/24: Agueda-cranial nerve blocks, bilateral: 100% relief for 2 weeks. 02/20/24: Agueda-cranial nerve blocks, bilateral: 100% relief for 2 weeks. 02/06/24: Agueda-cranial nerve blocks, bilateral: 100% relief for 2 weeks. 01/21/24: Agueda-cranial nerve blocks, bilateral: 100% relief for 2 weeks. 01/07/24: Agueda-cranial nerve blocks, bilateral: 100% relief for 2 weeks. 11/29/23: Agueda-cranial nerve blocks, bilateral: 90% relief for 1 week. 11/02/23: Agueda-cranial nerve blocks: 90% relief for 1 week. 10/15/23: Agueda-cranial nerve blocks: 90% relief for one week. [facility] Medical History History of TMJ syndrome Anxiety Depression Other secondary scoliosis, thoracolumbar region Other fatigue Syncope and collapse Low back pain Acute pharyngitis Acute kidney failure Dizziness and giddiness Postconcussional syndrome Cervicalgia Fall (on) (from) other stairs and steps, initial encounter Nausea History of falling Major depressive disorder Essential (primary) hypertension Abnormal weight gain GERD with esophagitis Unspecified right bundle-branch block Chronic kidney disease, stage 1 Other obesity due to excess calories Vitamin D deficiency Prediabetes Abnormal results of liver function studies Mixed hyperlipidemia Headache Flexural eczema Chronic kidney disease, stage 2 (mild) Fatty liver Hypercholesteremia Hypertension Migraines Surgical History History of esophagogastroduodenoscopy (EGD) H/O left knee surgery Social History Patient Tobacco Use Status: Never used Tobacco Current occupational status: unemployed Current occupation: Right Handed Review of Systems Const All systems reviewed & are unremarkable except as noted in HPI and below Physical Exam Vital Signs: Last Vital Signs Pulse 79 05/23/24 08:58 Resp 14 05/23/24 08:58 BP 127/79 05/23/24 08:58 Pulse Ox 96 05/23/24 08:58 Oxygen Delivery Method Room Air 05/23/24 08:58 BMI result Body Mass Index 30.0 General: Appears afebrile. Alert and oriented. Mood and affect appropriate. Follows and participates in conversation appropriately. Respiratory effort is unlabored. Able to transition from sit to stand unassisted. Ambulates with bilaterally normal heel strike and toe off. Lead?was?removed?with?tip?intact.?Lead?insertion?site?is?clean,?dry and intact. Results Reviewed Results Reviewed: No imaging is available for review. Assessment & Plan Assessment & Plan (1) Occipital neuralgia: Code(s): M54.81 - Occipital neuralgia Category: Medical Qualifiers: Laterality: bilateral Qualified Code(s): M54.81 - Occipital neuralgia Plan We will schedule him for left sided occipital nerve stimulation placement. Discussed the risks and benefits of the temporary occipital nerve stimulation with the patient in detail. All questions were answered. The patient is on board with the plan. Justification for interventional therapy: ? Patient with average pain > 6/10 ? Patient has exhausted conservative therapy. Peripheral nerve blocks have only provided temporary relief. Migraine medications and Botox have not been helpful. . Right sided Occipital Nerve Stimulation provided 100% relief. . Patient has a good understanding of their pain condition and has appropriate mental and social support Scribed for Dr. Pickett by Paul Sultana, family practice medical doctor, on 05/23/2024. I, Dr. Pickett, have personally reviewed and agree with the information entered by the scribe. Coding Level of Care Code Est Pt Level 3 (36981) Diagnoses Bilateral occipital neuralgia M54.81 Laterality: bilateral
[2024-05-23 08:58] VITALS: BP 127/79; PULSE 79; RESP 14; O2SAT 96
== END 2024-05-23 09:17 | disposition home or self-care (01) ==
PROVIDERS: PCP Internal Medicine; Visit Provider Internal Medicine
DX: M54.81 Occipital neuralgia (principal)
CPT/HCPCS: 99213

== ENCOUNTER → 2024-05-23 08:44 | Outpatient (BNVA) | payer OTHER, SELFPAY | PROVIDERS: PCP Internal Medicine; Visit Provider Internal Medicine ==

== ENCOUNTER 2024-06-05 06:04 | Outpatient (REF) | payer OTHER, SELFPAY | END 2024-06-05 06:05 | disposition home or self-care (01) | LOC: CF 06:04 | PROVIDERS: Visit Provider Internal Medicine | DX: M54.81 Occipital neuralgia (principal) | CPT/HCPCS: 64555; C1778; J2003 ==

== ENCOUNTER 2024-06-05 10:20 | Outpatient (AMB) | payer OTHER, SELFPAY ==
--- NOTE | 2024-06-05 10:29 | MHC.OFFVIS ---
Vital Signs 06/05/24 10:38 06/05/24 11:31 BP 132/88 130/90 H Blood Pressure Location Lt brachial Lt brachial Position Sitting Sitting Pulse 82 73 Pulse Source Pulse Oximeter Pulse Oximeter Pulse Oximetry (%) 97 96 Oxygen Delivery Method Room Air Room Air Intake Visit Reasons: Left occipital nerve Sprint Allergies No Known Allergies [No Known Allergies*] Allergy (Verified 05/23/24 09:01) HPI HPI Left occipital nerve Sprint: Details: Patient presents for scheduled procedure. Denies any recent cough, cold, infection, fever or other significant changes in medical history since last office visit. [facility] Medical History History of TMJ syndrome Anxiety Depression Other secondary scoliosis, thoracolumbar region Other fatigue Syncope and collapse Low back pain Acute pharyngitis Acute kidney failure Dizziness and giddiness Postconcussional syndrome Cervicalgia Fall (on) (from) other stairs and steps, initial encounter Nausea History of falling Major depressive disorder Essential (primary) hypertension Abnormal weight gain GERD with esophagitis Unspecified right bundle-branch block Chronic kidney disease, stage 1 Other obesity due to excess calories Vitamin D deficiency Prediabetes Abnormal results of liver function studies Mixed hyperlipidemia Headache Flexural eczema Chronic kidney disease, stage 2 (mild) Fatty liver Hypercholesteremia Hypertension Migraines Surgical History History of esophagogastroduodenoscopy (EGD) H/O left knee surgery Social History Patient Tobacco Use Status: Never used Tobacco Current occupational status: unemployed Current occupation: Right Handed Physical Exam Vital Signs: Last Vital Signs Pulse 73 06/05/24 11:31 BP 130/90 H 06/05/24 11:31 Pulse Ox 96 06/05/24 11:31 Oxygen Delivery Method Room Air 06/05/24 11:31 Office Procedures Details: Occipital Nerve Stimulation Lead Placement, SPR (Sprint) System, Left ? After the risks, benefits and alternatives were discussed with the patient and informed consent was obtained, patient was placed in the prone position and padded to foster comfort. The skin overlying the cervical spine was prepped and draped in sterile fashion. Ultrasound was used to identify the C2 spinous process and lamina. After identifying the occipital artery and nerve, the skin around the planned entry point and the subcutaneous tissues were injected with lidocaine 1%. An introducer needle and stimulating probe were assembled, inserted and advanced under ultrasound guidance. The introducer needle was delivered to a location in proximity to the nerve. Multiple stimulation parameters were used to deliver stimulation to the occipital nerve in concert with stimulating at multiple positions around the nerve. Nerve target acquisition was confirmed noting generation of paresthesias in the high cervical and occipital regions corresponding to the nerve being stimulated. Various electrical parameter combinations were tested, and the lead location was adjusted (physically relocated) until the patient indicated paresthesia/muscle tension overlapping the occipital region. The stimulating probe was removed from the introducer and a percutaneous lead was guided through the needle and delivered to a location in similar proximity to the nerve. Final location was verified with electrical stimulation and documented with ultrasound. The introducer needle was removed, and the exposed end of the percutaneous lead was attached to an external stimulator unit. Various electrical parameter combinations were again tested until the patient indicated paresthesia or muscle tension in the occipital region. After confirming that lead impedance was in the normal range, the external unit was detached, the needle was removed, and the lead was anchored at the skin. The lead was threaded into the connector block and electrical continuity and desired patient response was confirmed. The connector block was attached to the external stimulator unit. The site was covered with a sterile occlusive pressure dressing. The patient was observed for stability of vital signs and comfort. Patient was dischared in stable condition. Sprint PNS Device: Sprint PNS Device [id number] Percutaneous Peripheral Neuroelectrode Procedure: 83997 - Percutaneous Peripheral Neuroelectrode Procedure code (CPT) selection complete Office Meds lidocaine HCl 10 mg/mL (1 %) injection solution Performing Provider: Marsha Tavarez APRN, LEAD SOFTWARE TESTER Performing Location: [facility] [place] [facility] Administered by: Kimmy Lombardi LPN on 06/05/24 10:29 Dose Route Admin Location Dispensed Lot Number Expiration Date [facility] Senior Architect/Design Manager 5 mL subcut 5 mL Assessment & Plan Assessment & Plan (1) Occipital neuralgia: Code(s): M54.81 - Occipital neuralgia Category: Medical Qualifiers: Laterality: bilateral Qualified Code(s): M54.81 - Occipital neuralgia Plan Patient is status post temporary left occipital nerve stimulator placement. Patient tolerated procedure well and was discharged home in stable condition with discharge instructions. All questions were answered. We will follow-up via telephone or in clinic to assess response to therapy. A follow-up appointment was made during today's visit. Orders: Orders [place] guidance in treatment room Today M54.81 - Occipital neuralgia AMB Sprint PNS Today M54.81 - Occipital neuralgia Coding Level of Care Code Procedure Only Diagnoses Bilateral occipital neuralgia M54.81 Laterality: bilateral CPT Codes Sprint PNS - Sprint PNS Device: Sprint PNS Device ([id number]) Sprint PNS - SPRINT: 58415 - Percutaneous Peripheral Neuroelectrode ([id number]) Implantable Device Implantable Device Implantable Devices Qty Senior Architect/Design Manager Implant Date Expiration Date Analgesic PENS system 1 [employer] 06/05/24 04/19/25
[2024-06-05 10:38] VITALS: BP 132/88; PULSE 82; O2SAT 97
[2024-06-05 11:31] VITALS: BP 130/90; PULSE 73; O2SAT 96
== END 2024-06-05 11:57 | disposition home or self-care (01) ==
LOC: HO.PMCPRC 10:20
PROVIDERS: PCP Internal Medicine; Visit Provider Internal Medicine
DX: M54.81 Occipital neuralgia (principal)
CPT/HCPCS: 64555

== ENCOUNTER 2024-06-11 09:55 | Outpatient (AMB) | payer OTHER, SELFPAY ==
[2024-06-11 10:04] VITALS: BP 118/75; PULSE 83; RESP 14; O2SAT 97
--- NOTE | 2024-06-11 10:04 | MHC.OFFVIS ---
Vital Signs 06/11/24 10:04 Height 5 ft 8.5 in Weight 200 lb BMI 30.0 BP 118/75 Blood Pressure Location Lt brachial Position Sitting Respiration 14 Pulse 83 Pulse Source Pulse Oximeter Pulse Oximetry (%) 97 Oxygen Delivery Method Room Air Intake Visit Reasons: s/p left occipital Sprint Allergies No Known Allergies [No Known Allergies*] Allergy (Verified 06/11/24 10:05) Medication List - Last Reconciled 06/11/24 by Kimmy Lombardi LPN atorvastatin 20 mg PO DAILY carvedilol phosphate ER 20 mg PO DAILY desvenlafaxine succinate ER (Pristiq) 100 mg PO DAILY gemfibrozil (Lopid) 600 mg PO BID [ketamine 240 mg LINGUAL 2XW] lisinopril 5 mg PO BEDTIME olanzapine 20 mg PO BEDTIME olanzapine-samidorphan 20-10 mg (Lybalvi) 1 tab PO BEDTIME omeprazole 40 mg PO DAILY HPI HPI s/p left occipital Sprint: Details: 49-year-old male who presents today to the office for a status post left occipital sprint. The patient reports excellent initial response following the left sided procedure. It took about 5 weeks for his right sided headache to resolve after the placement of the lead. He feels that his left side is following the similar trajectory. He still reports no headaches on the right side. Past procedures 06/05/24: Occipital Nerve Stimulation Lead Placement, SPR (Sprint) System, Left: excellent initial response. 03/27/24: Occipital Nerve Stimulation Lead Placement, SPR (Sprint) System, Right: 100 % relief. 03/19/2024: bilateral agueda-cranial nerve blocks: % relief.03/05/24: Augeda-cranial nerve blocks, bilateral: 100% relief for 2 weeks. 02/20/24: Agueda-cranial nerve blocks, bilateral: 100% relief for 2 weeks. 02/06/24: Agueda-cranial nerve blocks, bilateral: 100% relief for 2 weeks. 01/21/24: Agueda-cranial nerve blocks, bilateral: 100% relief for 2 weeks. 01/07/24: Agueda-cranial nerve blocks, bilateral: 100% relief for 2 weeks. 11/29/23: Agueda-cranial nerve blocks, bilateral: 90% relief for 1 week. 11/02/23: Agueda-cranial nerve blocks: 90% relief for 1 week. 10/15/23: Agueda-cranial nerve blocks: 90% relief for one week. [facility] Medical History History of TMJ syndrome Anxiety Depression Other secondary scoliosis, thoracolumbar region Other fatigue Syncope and collapse Low back pain Acute pharyngitis Acute kidney failure Dizziness and giddiness Postconcussional syndrome Cervicalgia Fall (on) (from) other stairs and steps, initial encounter Nausea History of falling Major depressive disorder Essential (primary) hypertension Abnormal weight gain GERD with esophagitis Unspecified right bundle-branch block Chronic kidney disease, stage 1 Other obesity due to excess calories Vitamin D deficiency Prediabetes Abnormal results of liver function studies Mixed hyperlipidemia Headache Flexural eczema Chronic kidney disease, stage 2 (mild) Fatty liver Hypercholesteremia Hypertension Migraines Surgical History History of esophagogastroduodenoscopy (EGD) H/O left knee surgery Social History Patient Tobacco Use Status: Never used Tobacco Current occupational status: unemployed Current occupation: Right Handed Review of Systems Const All systems reviewed & are unremarkable except as noted in HPI and below Physical Exam Vital Signs: Last Vital Signs Pulse 83 06/11/24 10:04 Resp 14 06/11/24 10:04 BP 118/75 06/11/24 10:04 Pulse Ox 97 06/11/24 10:04 Oxygen Delivery Method Room Air 06/11/24 10:04 BMI result Body Mass Index 30.0 General: Appears afebrile. Alert and oriented. Mood and affect appropriate. Follows and participates in conversation appropriately. Respiratory effort is unlabored. Able to transition from sit to stand unassisted. Ambulates with bilaterally normal heel strike and toe off. Lead insertion site was clean, dry, and intact. Results Reviewed Results Reviewed: No imaging is available for review. Assessment & Plan Assessment & Plan (1) Occipital neuralgia: Code(s): M54.81 - Occipital neuralgia Category: Medical Qualifiers: Laterality: bilateral Qualified Code(s): M54.81 - Occipital neuralgia Plan The patient will follow up in seven weeks for removal of the sprint device. Scribed for Dr. Pickett by Paul Kayy, district medical examiner, on 06/11/2024. I, Dr. Pickett, have personally reviewed and agree with the information entered by the scribe. Coding Level of Care Code Est Pt Level 3 (27648) Diagnoses Bilateral occipital neuralgia M54.81 Laterality: bilateral
== END 2024-06-11 10:11 | disposition home or self-care (01) ==
PROVIDERS: PCP Internal Medicine; Visit Provider Internal Medicine
DX: M54.81 Occipital neuralgia (principal)
CPT/HCPCS: 99024

== ENCOUNTER → 2024-06-11 09:55 | Outpatient (BNVA) | payer OTHER, SELFPAY | PROVIDERS: PCP Internal Medicine; Visit Provider Internal Medicine ==

== ENCOUNTER 2024-07-30 09:05 | Outpatient (AMB) | payer OTHER, SELFPAY ==
--- NOTE | 2024-07-30 09:07 | A.OFFVIS_ITS ---
Vital Signs 07/30/24 09:08 Height 5 ft 8.5 in Weight 212 lb BMI 31.8 BP 125/78 Blood Pressure Location Lt brachial Position Sitting Respiration 15 Pulse 76 Pulse Source Pulse Oximeter Pulse Oximetry (%) 97 Oxygen Delivery Method Room Air Intake Visit Reasons: Sprint removal Allergies No Known Allergies [No Known Allergies*] Allergy (Verified 07/30/24 09:09) Medication List - Last Reconciled 07/30/24 by Kimmy Lombardi LPN atorvastatin 20 mg PO DAILY carvedilol phosphate ER 20 mg PO DAILY desvenlafaxine succinate ER (Pristiq) 100 mg PO DAILY gemfibrozil (Lopid) 600 mg PO BID [ketamine 240 mg LINGUAL 2XW] lisinopril 5 mg PO BEDTIME olanzapine 20 mg PO BEDTIME olanzapine-samidorphan 20-10 mg (Lybalvi) 1 tab PO BEDTIME omeprazole 40 mg PO DAILY HPI HPI Sprint removal: Details: 49-year-old male who presents to the office today for a left Sprint removal. While in the office today, he reports 100% relief after the procedure. He states he has been headache-free for the past 2 weeks. His both sides are currently pain-free. Past procedures: 06/05/24: Occipital Nerve Stimulation Lead Placement, SPR (Sprint) System, Left: excellent initial response. 03/27/24: Occipital Nerve Stimulation Lead Placement, SPR (Sprint) System, Right: 100 % relief. 03/19/2024: bilateral agueda-cranial nerve blocks: % relief.03/05/24: Agueda-cranial nerve blocks, bilateral: 100% relief for 2 weeks. 02/20/24: Agueda-cranial nerve blocks, bilateral: 100% relief for 2 weeks. 02/06/24: Agueda-cranial nerve blocks, bilateral: 100% relief for 2 weeks. 01/21/24: Agueda-cranial nerve blocks, bilateral: 100% relief for 2 weeks. 01/07/24: Agueda-cranial nerve blocks, bilateral: 100% relief for 2 weeks. 11/29/23: Agueda-cranial nerve blocks, bilateral: 90% relief for 1 week. 11/02/23: Agueda-cranial nerve blocks: 90% relief for 1 week. 10/15/23: Agueda-cranial nerve blocks: 90% relief for one week. [facility] Medical History History of TMJ syndrome Anxiety Depression Other secondary scoliosis, thoracolumbar region Other fatigue Syncope and collapse Low back pain Acute pharyngitis Acute kidney failure Dizziness and giddiness Postconcussional syndrome Cervicalgia Fall (on) (from) other stairs and steps, initial encounter Nausea History of falling Major depressive disorder Essential (primary) hypertension Abnormal weight gain GERD with esophagitis Unspecified right bundle-branch block Chronic kidney disease, stage 1 Other obesity due to excess calories Vitamin D deficiency Prediabetes Abnormal results of liver function studies Mixed hyperlipidemia Headache Flexural eczema Chronic kidney disease, stage 2 (mild) Fatty liver Hypercholesteremia Hypertension Migraines Surgical History History of esophagogastroduodenoscopy (EGD) H/O left knee surgery Social History Patient Tobacco Use Status: Never used Tobacco Current occupational status: unemployed Current occupation: Right Handed Review of Systems Const All systems reviewed & are unremarkable except as noted in HPI and below Physical Exam Vital Signs: Last Vital Signs Pulse 76 07/30/24 09:08 Resp 15 07/30/24 09:08 BP 125/78 07/30/24 09:08 Pulse Ox 97 07/30/24 09:08 Oxygen Delivery Method Room Air 07/30/24 09:08 BMI result Body Mass Index 31.8 General: Appears afebrile. Alert and oriented. Mood and affect appropriate. Follows and participates in conversation appropriately. Respiratory effort is unlabored. Able to transition from sit to stand unassisted. Ambulates with bilaterally normal heel strike and toe off. Results Reviewed Results Reviewed: No imaging is available for review. Assessment & Plan Assessment & Plan (1) Occipital neuralgia: Code(s): M54.81 - Occipital neuralgia Category: Medical Qualifiers: Laterality: bilateral Qualified Code(s): M54.81 - Occipital neuralgia Plan He had 100% relief after the procedure. His both sides are currently pain-free. He will follow up as needed for repeat therapy. Scribed for Dr. Pickett by Susie John, medical tech, on 07/30/2024.? I, Dr. Pickett, have personally reviewed and agree with the information entered by the scribe. Coding Level of Care Code Est Pt Level 3 (49798) Diagnoses Bilateral occipital neuralgia M54.81 Laterality: bilateral
[2024-07-30 09:08] VITALS: BP 125/78; PULSE 76; RESP 15; O2SAT 97; BMI 31.8
--- OUTSIDE RECORDS SUMMARY | 2024-07-30 23:18 | XMS_ITS ---
Author Organization [facility] Address [address] [place] [address] Care Team Providers Care Front Office Developer Name Role Phone Song Pratt MD Primary Care Provider Carlos Vila Unavailable [phone] ALLERGIES No Known Allergies REASON FOR VISIT Patient presents today for gerd MEDICATIONS Medication SIG (Take, Route, Frequency, Duration) Notes Start Date End Date Status clonazePAM 1 MG (Schedule IV Drug) TAKE 1 TABLET BY MOUTH ONCE DAILY FOR 30 DAYS Oral for 30 Unknown Carvedilol 3.125 MG TAKE 1 TABLET BY MOUTH TWICE A DAY Oral for 30 Unknown Omeprazole 20 MG 1 Orally Once a day for 30 Active PriLOSEC 20 MG 1 capsule Orally Once a day Started on 10/19/2019 Unknown Lisinopril 5 MG Oral for 90 Un known busPIRone HCl 30 MG 1 tablet Orally Twice a day Active Pristiq 100 MG 1 tablet Orally Once a day for 30 day(s) Active OLANZapine 20 MG 1 tablet Orally Once a day for 30 day(s) Active Gemfibrozil 600 MG 1 tablet 30 minutes before morning and evening meals Orally Twice a day for 30 day(s) Active Atorvastatin Calcium 10 MG 1 tablet Orally Once a day for 30 day(s) Active Emgality 120 MG/ML as directed Subcutaneous Monthly injections for headaches Active Carvedilol Phosphate ER 20 MG 1 capsule with food Orally Once a day for 30 day(s) Active VITAL SIGNS BMI 30.28 kg/m2 06/11/2024 Blood pressure systolic 000 mm Hg 06/11/20 24 Blood pressure diastolic 00 mm Hg 024 Height 68.5 in 06/11/2024 Temperature 98.0 degrees Fahrenheit 06/11/20 24 Weight 202 lb 2 oz lbs 06/11/2024 Encounters Encounter Location Date Provider Diagnosis [facility] [address] [place] [address] 06/11/2024 Carlos Gomez Gastroesophageal ref lux disease, esophagitis presence not specified K21.9 ; Fatty liver K76.0 and Elevated liver function tests R79.89 ASSESSMENTS Encounter Date Diagnosis Assessment Notes Treatment Notes Treatment Clinical Notes 06/11/2024 Gastroesophageal reflux disease, esophagitis presence not specified (ICD-10 - K21.9) Continue daily omeprazole 06/11/2024 Fatty liver (ICD-10 - K76.0) 06/11/2024 Elevated liver function tests (ICD-10 - R79.89) Continue diet for the fatty liver 06/11/2024 Other Repeat colonoscopy in 2028 PLAN OF TREATMENT Treatment Notes Assessment Notes Gastroesophageal reflux dise ase, esophagitis presence not specified Continue daily omeprazole Elevated liver function tests Continue d iet for the fatty liver Other Repeat colonoscopy i n 2028 Pending Test Test Name Order Date LIVER PROFILE 06/11/2024 Next Appt Details Follow Up: prn, Reason: Progress Notes * Examination Category Sub-Category Detail Notes General Examination GENERAL APPEARANCE: pleasant , well nourished, well developed, in no acute distress EYES: sclera non-icteric NECK/THYROID: no cervical lymphade nopathy, neck supple HEART: S1, S2 normal LUNGS: clear to auscultatio n bilaterally ABDOMEN: normal bowel sounds, no guarding or rigidity,no masses palpable,soft, NT, nondistended NEUROLOGIC: alert and oriented SKIN: nonjaundiced, no spi mirian angiomata EXTREMITIES: no edema ORAL CAVITY: mucosa moist
--- OUTSIDE RECORDS SUMMARY | 2024-07-30 23:19 | XMS_ITS ---
Author Organization [facility] Address [address] [place] [address] Care Team Providers Care Poker Machine Attendant Name Role Phone Song Pratt MD Primary Care Provider Unavaila Carlos Ventura Unavailable [phone] REASON FOR VISIT See update. Encounters Encounter Location Date Provider Diagnosis [facility] [address] [place] [address] 10/29/2023 Carlos Gomez PLAN OF TREATMENT No Information
--- OUTSIDE RECORDS SUMMARY | 2024-07-30 23:19 | XMS_ITS | Patient Health Record ---
Author Organization [facility] Address [address] [place] [address] Care Team Providers Care Court Administrator Name Role Phone Song Pratt MD Primary Care Provider Unavaila ble Carlos Gomez Unavailable [phone] ALLERGIES No Known Allergies RESULTS Component Value Reference Range Notes US abdomen comp w elastograp hy Reviewed date:10/25/2023 06:38:53 PM Interpretation: Performing Lab: Notes/Report: [address] [address] Ultrasound Report Signed Patient: Nae Hobbs MR#: [id number] : 1975 Acct:[id number] Age/Sex: 48 / M ADM Date: 10/03/23 Loc: HO.US Attending Dr: Carlos Gomez MD Ordering Physician: Carlos Gomez Date of Service: 10/03/23 Procedure(s): US abdomen comp w elastography Accession Number(s): [id number] cc: Song Pratt MD; Carlos Gomez EXAMINATION: US COMPLETE ABDOMEN WITH LIVER ELASTOGRAPHY CLINICAL INFORMATION: Elevated liver function tests and fatty liver. COMPARISON: Abdominal ultrasound dated 11/03/2019. TECHNIQUE: Real-time imaging of the abdominal viscera. Noninvasive ultrasound liver fibrosis assessment is performed using Clara ElastPQ point quantification shear wave elastography (2D-SWE) with a C5-2 MHz transducer. Multiple elastography samples are obtained. FINDINGS: PANCREAS: Normal. The visualized pancreatic head and body are normal in appearance. The remainder of the pancreas is obscured from visualization by the overlying bowel gas. ABDOMINAL AORTA: The proximal and distal aortic segments are normal in caliber. The mid segment is partially obscured by overlapping bowel gas. INFERIOR VENA CAVA: Visualized portions are normal. LIVER: The liver demonstrates normal contour and generally increased echogenicity. No focal lesion or intrahepatic biliary duct dilatation. The right lobe measures 19.3 cm in length. The left lobe measures 10.7 cm in length. Portal flow is towards the liver (hepatopetal). Shear wave liver elastography median stiffness is 1.61 m/s (reference: normal median stiffness is 1.3 m/s or less). IQR/median stiffness to assess sampling precision is 0.11 (reference: good quality data set is IQR/median stiffness of 0.15 or less). GALLBLADDER: Normal. The gallbladder is physiologically distended without evidence of stones, sludge, polyps, wall thickening or pericholecystic fluid. COMMON BILE DUCT: Normal in caliber measuring 0.5 cm in diameter. RIGHT KIDNEY: At the interpolar aspect laterally, a 1.4 x 1.4 x 1.6 cm mildly complex cyst is redemonstrated, wall calcifications. On the CT examination dated 08/08/2019 (4:237), this showed a mildly complex (Bosniak 2), likely benign appearance. No imaging follow-up is recommended. No hydronephrosis. No renal calculi or focal parenchymal lesions. The kidney measures 11.1 cm in maximum dimension. LEFT KIDNEY: Normal. No hydronephrosis. No renal calculi or focal parenchymal lesions. The kidney measures 11.6 cm in maximum dimension. SPLEEN: Normal. The spleen measures 12.5 cm in maximum dimension. FREE FLUID: None. US/US abdomen comp w elastography IMPRESSION: 1. There is generalized increase in hepatic echotexture, consistent with fatty infiltration or hepatocellular disease. Please correlate clinically. No focal hepatic mass or intrahepatic biliary dilatation is seen. 2. There is mild hepatomegaly. 3. Liver elastography: In the absence of other known clinical signs, measurements rule out compensated advanced chronic liver disease. If there are known clinical signs, further testing may be needed for confirmation. 4. Technically limited ultrasound appearance of the abdominal aorta. REFERENCE: Society of Radiologists in Ultrasound Liver Stiffness Thresholds (2020): LIVER STIFFNESS THRESHOLDS: *Liver Stiffness equal or less than 1.3 m/s: High probability of being normal. *Liver Stiffness less than 1.7 m/s: In the absence of other known clinical signs, rules out compensated advanced chronic liver disease. *Liver Stiffness 1.7-2.1 m/s: Suggestive of compensated advanced chronic liver disease but need further test for confirmation. *Liver Stiffness over 2.1 m/s: Rules in compensated advanced chronic liver disease. *Liver Stiffness over 2.4 m/s: Suggestive of clinically significant portal hypertension. QUALITY OF DATA SET: *IQR/Median value equal or less than 0.15 implies a quality data set. *IQR/Median value over 0.15 implies a poor quality data set. SIGNIFICANT CHANGE FROM PRIOR EXAM: Significant change if liver stiffness measurement is 10% or greater from prior exam. OTHER CONSIDERATIONS: The stage of liver fibrosis may be overestimated in the setting of acute hepatitis, liver inflammation, elevated liver function tests, hepatic vascular congestion, obstructive cholestasis, non-fasting state, and infiltrative diseases such as amyloidosis and lymphoma. In some patients with NAFLD, the liver stiffness thresholds for compensated advanced chronic liver disease may be lower. In causes other than viral hepatitis and NAFLD, liver stiffness thresholds are not well established. Dictated By: Umer Daniels MD Signed By: <Electronically signed by Umer Daniels MD in OV> 10/03/23 1613 DD/ 0851 TD/TT: Latex Thread Machine Operator: ARACELI Gomez Reviewed date:10/30/2023 07:59:47 PM Interpretation: Performing Lab:[facility], [address] [place] [id number] Notes/Report: REASON FOR REFERRAL No Information MEDICATIONS Medication SIG (Take, Route, Frequency, Duration) Notes Start Date End Date Status Emgality 120 MG/ML as directed Subcutaneous Monthly injections for headaches Active clonazePAM 1 MG (Schedule IV Drug) TAKE 1 TABLET BY MOUTH ONCE DAILY FOR 30 DAYS Oral for 30 Unknown Carvedilol 3.125 MG TAKE 1 TABLET BY MOUTH TWICE A DAY Oral for 30 Unknown Omeprazole 20 MG 1 Orally Once a day for 30 Active PriLOSEC 20 MG 1 capsule Orally Once a day Started on 10/19/2019 Unknown busPIRone HCl 30 MG 1 tablet Orally Twice a day Active Pristiq 100 MG 1 tablet Orally Once a day for 30 day(s) Active OLANZapine 20 MG 1 tablet Orally Once a day for 30 day(s) Active Gemfibrozil 600 MG 1 tablet 30 minutes before morning and evening meals Orally Twice a day for 30 day(s) Active Carvedilol Phosphate ER 20 MG 1 capsule with food Orally Once a day for 30 day(s) Active Atorvastatin Calcium 10 MG 1 tablet Orally Once a day for 30 day(s) Active Lisinopril 5 MG Oral for 90 Un known IMMUNIZATIONS Vaccine Route Administration Date Status Comme nts Influenza Unknown 07/10/2023 Administered Influenza Unknown 06/06/2023 Administered Influenza Unknown 10/23/2019 Refused SOCIAL HISTORY Sex Assigned At : Social History Observation Description Sex Assigned At Unknown PROBLEMS Problem Type ICD Code Onset Dates Problem Status W/U Status Risk SNOMED Code Notes Problem Colon cancer screening (Z12.11) Active confirmed 840424423 Problem Gastro-esophageal reflux disease without esophagitis (K21.9) Active confirmed Gastro-esophag eal reflux disease without esophagitis (405135666) Problem Elevated liver function tests (R79.89) Active confirmed 540968946 Problem Fatty liver (K76.0) Active confirmed 19 2474198 Problem Gastroesophageal reflux disease, esophagitis presence not specified (K21.9) Active confirmed 375903414 Problem Abdominal pain, right upper quadrant (R10.11) Active confirmed 024521081 Problem Non-intractable vomiting with nausea, unspecified vomiting type (R11.2) Active confirmed 02720475 Problem Gastroesophageal reflux disease, unspecified whether esophagitis present (K21.9) Active confirmed 525390710 VITAL SIGNS Temperature 98.0 degrees Fahrenheit 06/11/2024 Blood pressure diastolic 00 mm Hg 06/11/2024 Height 68.5 in 06/11/2024 Blood pressure systolic 000 mm Hg 06/11/2024 Weight 202 lb 2 oz lbs 06/11/2024 BMI 30.28 kg/m2 06/11/2024 Encounters Encounter Location Date Provider Diagnosis [facility] Out[facility] [address] [place], [place] [id number] 10/26/2023 Carlos Gomez Encounter for screen ing colonoscopy Z12.11 ; Colon polyps K63.5 ; Other hemorrhoids K64.8 ; Gastro-esophageal reflux disease without esophagitis K21.9 and Hiatal hernia K44.9 [facility] [address] [facility] [address] [place] [address] 06/11/2024 Carlos Gomez Gastroesophageal ref lux disease, esophagitis presence not specified K21.9 ; Fatty liver K76.0 and Elevated liver function tests R79.89 [facility] [address] [place] [address] 09/08/2023 Carlos Gomez [facility] [address] [place] [address] 10/29/2023 Carlos Gomez ASSESSMENTS Encounter Date Diagnosis Assessment Notes Treatment Notes Treatment Clinical Notes 10/26/2023 Encounter for screening colonoscopy (ICD-10 - Z12.11) 10/26/2023 Colon polyps (ICD-10 - K63.5) 06/11/2024 Fatty liver (ICD-10 - K76.0) 06/11/2024 Gastroesophageal reflux disease, esophagitis presence not specified (ICD-10 - K21.9) Continue daily omeprazole 10/26/2023 Other hemorrhoids (ICD-10 - K64.8) 06/11/2024 Elevated liver function tests (ICD-10 - R79.89) Continue diet for the fatty liver 10/26/2023 Gastro-esophageal reflux disease without esophagitis (ICD-10 - K21.9) 10/26/2023 Hiatal hernia (ICD-1 0 - K44.9) 06/11/2024 Other Repeat colonoscopy in 2028 PLAN OF TREATMENT Pending Test Test Name Order Date LIVER PROFILE 06/11/2024 LIVER PROFILE 07/25/2023 IRON + IBC (FE) 07/25/2023 CBC w DIFF 07/25/2023 HEPATITIS B, C PROFILE 07/25/2023 FLUOR. ANTINUCLEAR AB SCREEN (LEANN) 01/2023 Prothrombin Time INR 07/25/2023 Ferritin 07/25/2023 Ceruloplasmin 07/25/2023 Alpha 1 Anti-trypsin 07/25/2023 Liver Fibrosis Pnl 07/25/2023 Mitochondrial Antibody 07/25/2023 Smooth Muscle Antibody 07/25/2023 US abdomen comp w elastography Future Test Test Name Order Date UPPER GI ENDOSCOPY 10/23/2019 UPPER GI ENDOSCOPY 07/25/2023 COLONOSCOPY 07/25/2023 Insurance Providers Payer Name Payer Address Payer Phone Subscriber Number Group Number Insured Name Patient Relationship to Insured Coverage Start Date Coverage End Date [employer] [address] [address] [place] [address] [id number] [id number] Self - patient is the insured MEDICAL (GENERAL) HISTORY Medical History History ICD Code EGD 08/04/2005--negative--no celiac disease, neg. H.pylori, no esophagitis/Nuñez's Denies VT,DM,CVA,Lung disease,renal dise ase Hypertension Migraines Concussions in 2017 Depression/Anxiety Normal gallbladder ultrasound and HIDA w ith CCK in 2013 Hyperlipidemia GERD--upper endoscopy in [facility] 2023 revealed a small hiatal hernia and mild reflux, but no evidence of any significant esophagitis nor Nuñez's esophagus Elevated LFT's-- presumed fa tty liver with significant improvement with weight loss--he had a liver ultrasound, but did not have a liver workup as his LFTs significantly improved Screening colonoscopy in [facility] 2023 revealed a small polyp which was removed and shown to be a probable hyperplastic polyp, although the pathologist could not definitively rule out a serrated polyp Surgical History Surgery Date(Month/Year) TMJ syndrome Left knee arthroscopy
--- OUTSIDE RECORDS SUMMARY | 2024-07-30 23:19 | XMS_ITS ---
Author Organization [facility] Address [address] [place] [address] Care Team Providers Care Rangeland Management Specialist Name Role Phone Song Pratt MD Primary Care Provider Unavaila Carlos Ventura Unavailable [phone] REASON FOR VISIT screening,gerd PROBLEMS Problem Type ICD Code Onset Dates Problem Status W/U Status Risk SNOMED Code Notes Problem Gastro-esophagea l reflux disease without esophagitis (K21.9) Active confirmed Gastro-esophage al reflux disease without esophagitis ([id number]) Encounters Encounter Location Date Provider Diagnosis [facility] Outpatient [address] [place] [phone] 10/26/2023 Carlos Gomez Encounter for scre ening colonoscopy Z12.11 ; Colon polyps K63.5 ; Other hemorrhoids K64.8 ; Gastro-esophageal reflux disease without esophagitis K21.9 and Hiatal hernia K44.9 ASSESSMENTS Encounter Date Diagnosis Assessment Notes Treatment Notes Treatment Clinical Notes 10/26/2023 Encounter for screening colonoscopy (ICD-10 - Z12.11) 10/26/2023 Colon polyps (ICD-10 - K63.5) 10/26/2023 Other hemorrhoids (ICD-10 - K64.8) 10/26/2023 Gastro-esophageal reflux disease without esophagitis (ICD-10 - K21.9) 10/26/2023 Hiatal hernia (ICD-10 - K44.9) PLAN OF TREATMENT No Information
== END 2024-07-30 09:27 | disposition home or self-care (01) ==
PROVIDERS: PCP Internal Medicine; Visit Provider Internal Medicine
DX: M54.81 Occipital neuralgia (principal)
CPT/HCPCS: 99213

== ENCOUNTER 2025-01-05 08:16 | Outpatient (AMB) | payer OTHER, SELFPAY ==
--- NOTE | 2025-01-05 08:19 | A.OFFPC_ITS ---
Vital Signs 01/05/25 08:24 Height 5 ft 8.5 in Weight 97.976 kg BMI 32.4 BP 118/78 Respiration 18 Pulse 78 Pulse Source Pulse Oximeter Temp 97.9 F Temp Source Temporal Artery Scan Pulse Oximetry (%) 96 Oxygen Delivery Method Room Air Intake Visit Reasons: Routine Structures Engineer Required: No Accompanied by: Self / Same As Patient Allergies No Known Allergies [No Known Allergies*] Allergy (Verified 01/05/25 08:21) HPI HPI Comments History of Present Illness Details 49-year-old male with history of hyperte nsion, hyperlipidemia, prediabetes, and depression presents to the office today for management of chronic conditions and to establish care. MDD- He has been following with a psychiatrist, Dr. Looney, for management of his medications which he reports compliance with. He has also been following at [facility] for ketamine injections. He reports stability of his symptoms. He has never required hospitalization. Denies any SI/HI. He does report having supportive contacts and engaging in activities that he enjoys. HTN- compliant with lisinopril 5mg daily. Reports his BP is always high with SBP 150s when he goes for his ketamine inj, even before the injection. Reports they check this with a wrist cuff. HLD- compliant with atorvastatin 20mg daily Prediabetes- not always following healthy diet or exercising. Last A1c 2022 5.8% No concerns at today's visit General: No fevers, malaise, unintentional weight loss Cardiovascular: No chest pain, palpitations, or leg edema Respiratory: No shortness of breath, wheezing, cough MSK: No myalgia, back pain Neuro: No headaches, weakness, paresthesias Skin: No rashes or lesions Constitutional - Awake and Alert, No apparent distress Eyes - PERRL Cardiovascular - S1S2, RRR, No edema Respiratory - Normal lung expansion, Normal respiratory effort, No respiratory distress, CTA bilaterally Extremities - no calf tenderness bilaterally, no swelling Skin - Warm/Dry Neurological - Alert & oriented x3 Psychological - Appropriate affect [facility] Medical History (Updated 01/05/25 @ 10:37 by AILYN Erickson) Anemia History of TMJ syndrome Anxiety Depression Other secondary scoliosis, thoracolumbar region Other fatigue Syncope and collapse Low back pain Acute pharyngitis Acute kidney failure Dizziness and giddiness Postconcussional syndrome Cervicalgia Fall (on) (from) other stairs and steps, initial encounter Nausea History of falling Major depressive disorder Essential (primary) hypertension Abnormal weight gain GERD with esophagitis Unspecified right bundle-branch block Chronic kidney disease, stage 1 Other obesity due to excess calories Vitamin D deficiency Prediabetes Abnormal results of liver function studies Mixed hyperlipidemia Headache Flexural eczema Chronic kidney disease, stage 2 (mild) Fatty liver Hypercholesteremia Hypertension Migraines Surgical History (Updated 01/02/25 @ 12:08 by Mariam Jasmine) History of colonoscopy (~10/26/23) History of esophagogastroduodenoscopy (EGD) H/O left knee surgery Social History Patient Tobacco Use Status: Never used Tobacco Current occupational status: unemployed Current occupation: Right Handed Physical exam (Primary Care) Vital Signs: Last Vital Signs Temp 97.9 F 01/05/25 08:24 Pulse 78 01/05/25 08:24 Resp 18 01/05/25 08:24 BP 118/78 01/05/25 08:24 Pulse Ox 96 01/05/25 08:24 Oxygen Delivery Method Room Air 01/05/25 08:24 BMI result Body Mass Index 32.4 Tobacco/Smoking Status: Tobacco use Status Patient Tobacco Use Status Never used Tobacco 01/05/25 08:20 Coding Level of Care Code New Pt Level 4 (68468) Complex EM visit Add On G2211 Diagnoses Major depressive disorder F32.9 Hypercholesteremia E78.00 Hypertension I10 Prediabetes R73.03 Assessment & Plan Assessment & Plan (1) Major depressive disorder: Code(s): F32.9 - Major depressive disorder, single episode, unspecified Category: Medical Plan: Stable. No SI. Continue following with Dr. Looney and continue Pristiq as well as Lybalvi. Denies history of bipolar disorder or schizophrenia. Continue following with Dr. Pizano for Ketamine injections. Monitor blood pressures closely. Will evaluate liver panel for medication monitoring. (2) Hypercholesteremia: Code(s): E78.00 - Pure hypercholesterolemia, unspecified Category: Medical Plan: Lipid panel ordered. Continue atorvastatin 20mg daily. Low fat diet and diet low in highly processed foods ordered. Recommend increased exercise. Will also check liver panel. (3) Hypertension: Code(s): I10 - Essential (primary) hypertension Category: Medical Plan: Controlled with blood pressure 118/78. Continue lisinopril 5mg daily. Low sodium diet. (4) Prediabetes: Code(s): R73.03 - Prediabetes Category: Medical Plan: Hgb A1c ordered. Counseled on healthy diet low in carbohydrates and increased exercise. Plan Follow up in 6 months. Labs to be completed today as well as prior to next visit. Orders: Orders Basic Metabolic Panel Today E78.00 - Pure hypercholesterolemia, unspecified, I10 - Essential (primary) hypertension, R73.03 - Prediabetes Complete Blood Count Auto Diff Today E78.00 - Pure hypercholesterolemia, unspecified, I10 - Essential (primary) hypertension, R73.03 - Prediabetes Liver Panel Today E78.00 - Pure hypercholesterolemia, unspecified, I10 - Esse ntial (primary) hypertension, R73.03 - Prediabetes Lipid Panel Today E78.00 - Pure hypercholesterolemia, unspecified, I10 - Essential (primary) hypertension, R73.03 - Prediabetes Hemoglobin A1c Today E78.00 - Pure hypercholesterolemia, unspecified, I10 - Essential (primary) hypertension, R73.03 - Prediabetes TSH reflex Free T4 Today E78.00 - Pure hypercholesterolemia, unspecified, I10 - Essential (primary) hypertension, R73.03 - Prediabetes IRON PROFILE Today D64.9 - Anemia, unspecified Lipid Panel 5 Months E78.00 - Pure hypercholesterolemia, unspecified, I10 - Essential (primary) hypertension, R73.03 - Prediabetes Liver Panel 5 Months E78.00 - Pure hypercholesterolemia, unspecified, I10 - Essential (primary) hypertension, R73.03 - Prediabetes Basic Metabolic Panel 5 Months E78.00 - Pure hypercholesterolemia, unspecified, I10 - Essential (primary) hypertension, R73.03 - Prediabetes Hemoglobin A1c 5 Weeks R73.03 - Prediabetes
--- OUTSIDE RECORDS SUMMARY | 2025-01-05 08:20 | XMS_ITS ---
Author Organization [facility] Address [address] [place] [address] Care Team Providers Care Suede Cleaner Name Role Phone Song Pratt MD Primary Care Provider UnavailCarlos Carrasco [phone] REASON FOR VISIT See update. Encounters Encounter Location Date Provider Diagnosis [facility] [address] [place] [id number] 10/29/2023 Carlos Gomez Plan Of Treatment No Information Progress Notes * ANE HOBBSDOB: 5 (48 yo M)Acc No.[id number]:10/29/2023 Patient:?NAE HOBBS :1975???Age:48 Y???Sex:Male [address] [place] [address] * true * Date:? Generated for Printi dre/Fahaleyg/eTransmitting on:?01/05/2025 08:20 AM EDT
--- OUTSIDE RECORDS SUMMARY | 2025-01-05 08:20 | XMS_ITS ---
Author Organization [facility] Address [address] [place] [address] Care Team Providers Care Community Center Worker Name Role Phone Song Pratt MD Primary Care Provider Carlos Vila Unavailable [phone] Allergies No Known Allergies REASON FOR VISIT Patient presents today for gerd Medications Medication SIG (Take, Route, Frequency, Duration) Notes [...] Once a day for 30 day(s) Active Vital Signs Temperature 98.0 degrees Fahrenheit 06/11/20 24 Blood pressure systolic 000 mm Hg 06/11/20 24 Blood pressure diastolic 00 mm Hg 024 Height 68.5 in 06/11/2024 Weight 202 lb 2 oz lbs 06/11/2024 BMI 30.28 kg/m2 06/11/2024 Encounters Encounter Location Date Provider Diagnosis [facility] [address] [place] [address] 06/11/2024 Carlos Gomez Gastroesophageal ref lux disease, esophagitis presence not specified K21.9 ; Fatty liver K76.0 and Elevated liver function tests R79.89 Assessments Encounter Date Diagnosis (ICD Code) Assessment Notes Treatment Notes Treatment Clinical Notes Section Notes 06/11/2024 Gastroesophageal reflux disease, esophagitis presence not specified (ICD-10 - K21.9) Continue daily omeprazole Overall, Nae appears well. We did review the findings on his GI procedures from earlier this year. I advised him that he should continue his daily omeprazole for continued symptomatic relief of reflux. As long as things remain stable in that regard I don't think he will need any further upper endoscopies given no evidence of Nuñez's esophagus seen on the endoscopy. I would typically recommend another colonoscopy in 10 years given what appeared to be a small hyperplastic polyp. However, given the pathologist's concern about a possible serrated polyp, I advised him that I would recommend we do that again in 5 years rather than 10. I shall repeat a liver profile today. I did advise him of the diagnosis of fatty liver and that obviously weight loss and careful diet are the best ways to handle that. If the LFTs remain basically normal I would not recommend any further workup. However, if the LFTs have risen significantly I would want him to have the complete liver workup that I had ordered earlier in the year. Nae was comfortable with this plan. Thank you again for allowing me to participate in Nae's care. I shall continue to keep you advised of his progress. 06/11/2024 Fatty liver (ICD-10 - K76.0) Overall, Nae appears well. We did review the findings on his GI procedures from earlier this year. I advised him that he should continue his daily omeprazole for continued symptomatic relief of reflux. As long as things remain stable in that regard I don't think he will need any further upper endoscopies given no evidence of Nuñez's esophagus seen on the endoscopy. I would typically recommend another colonoscopy in 10 years given what appeared to be a small hyperplastic polyp. However, given the pathologist's concern about a possible serrated polyp, I advised him that I would recommend we do that again in 5 years rather than 10. I shall repeat a liver profile today. I did advise him of the diagnosis of fatty liver and that obviously weight loss and careful diet are the best ways to handle that. If the LFTs remain basically normal I would not recommend any further workup. However, if the LFTs have risen significantly I would want him to have the complete liver workup that I had ordered earlier in the year. Nae was comfortable with this plan. Thank you again for allowing me to participate in Nae's care. I shall continue to keep you advised of his progress. 06/11/2024 Elevated liver function tests (ICD-10 - R79.89) Continue diet for the fatty liver Overall, Nae appears well. We did review the findings on his GI procedures from earlier this year. I advised him that he should continue his daily omeprazole for continued symptomatic relief of reflux. As long as things remain stable in that regard I don't think he will need any further upper endoscopies given no evidence of Nuñez's esophagus seen on the endoscopy. I would typically recommend another colonoscopy in 10 years given what appeared to be a small hyperplastic polyp. However, given the pathologist's concern about a possible serrated polyp, I advised him that I would recommend we do that again in 5 years rather than 10. I shall repeat a liver profile today. I did advise him of the diagnosis of fatty liver and that obviously weight loss and careful diet are the best ways to handle that. If the LFTs remain basically normal I would not recommend any further workup. However, if the LFTs have risen significantly I would want him to have the complete liver workup that I had ordered earlier in the year. Nae was comfortable with this plan. Thank you again for allowing me to participate in Nae's care. I shall continue to keep you advised of his progress. 06/11/2024 Other Repeat colonoscopy in 2028 Overall, Nae appears well. We did review the findings on his GI procedures from earlier this year. I advised him that he should continue his daily omeprazole for continued symptomatic relief of reflux. As long as things remain stable in that regard I don't think he will need any further upper endoscopies given no evidence of Nuñez's esophagus seen on the endoscopy. I would typically recommend another colonoscopy in 10 years given what appeared to be a small hyperplastic polyp. However, given the pathologist's concern about a possible serrated polyp, I advised him that I would recommend we do that again in 5 years rather than 10. I shall repeat a liver profile today. I did advise him of the diagnosis of fatty liver and that obviously weight loss and careful diet are the best ways to handle that. If the LFTs remain basically normal I would not recommend any further workup. However, if the LFTs have risen significantly I would want him to have the complete liver workup that I had ordered earlier in the year. Nae was comfortable with this plan. Thank you again for allowing me to participate in Nae's care. I shall continue to keep you advised of his progress. Plan Of Treatment Treatment Notes Assessment Notes Gastroesophageal reflux dise ase, esophagitis presence not specified Continue daily omeprazole Elevated liver function tests Continue d iet for the fatty liver Other Repeat colonoscopy i n 2028 Pending Test Test Name Order Date LIVER PROFILE 06/11/2024 Next Appt Details Follow Up: prn, Reason: Progress Notes * NAE HOBBSDOB: 5 (49 yo M)Acc No.[id number]:06/11/2024 Progress Notes Patient:?NAE HOBBS Provider:?Carlos Gomez MD :1975???Age:49 Y???Sex:Male Mikhail e:06/11/2024 Address:[address] [place] [address] [address] [facility] [id number] Pcp:Song Pratt MD Subjective: * Chief Complaints: * ???Patient presents today fo r gerd * HPI: ???incontinence:? I saw Nae in followup today in regard to his chronic gastroesophageal reflux and presumed fatty liver. ?I last saw Nae in October, at which time he underwent an upper endoscopy and screening colonoscopy. His colonoscopy revealed a tiny polyp that was removed and shown to be a probable hyperplastic polyp, but the pathologist stated that she could not definitively rule out a serrated polyp. His upper endoscopy revealed only a small hiatal hernia and some minimal changes of reflux but without any evidence of esophagitis or Nuñez's esophagus. He has continued to feel well it is daily omeprazole and denies any significant symptoms of heartburn no dysphagia. He enjoys a good appetite and denies any nausea, vomiting, nor early satiety. His bowel movement to remain regular and without any bleeding. ?He was noted to have elevated LFTs in the past but on repeating those they had markedly improved. An abdominal ultrasound Revealed only changes of a fatty liver. I did order a complete liver workup but he never had that done. His most recent liver profile as of August revealed an AST of 43 and ALT of 54 with otherwise normal values. Of note, he has lost about 30 pounds on purposeful diet over the course of this year. He does have about 2 glasses of wine each day. * ROS:?General/Constitutional:?Change in appetite?denies.?Chills?denies.?Fatigue?denies.?Ophthalmologic:?Comments?all negative.?ENT:?Comments?all negative.?Respiratory:?hemoptysis?denies.?Cough?denies.?Cardiovascular:?Chest pain?denies.?Orthopnea?denies.?Gastrointestinal:?Comments?See HPI for details.?Genitourinary:?Hematuria?denies.?Dysuria?denies.?Musculoskeletal:?Painful joints?denies.?Weakness?denies.?Skin:?Itching?denies.?Rash?denies.?Neurologic:?Headache?denies.?Seizures?denies.?Psychiatric:?Comments?all negative.? * Medical History:? * Surgical History:?TMJ syndro me Left knee arthroscopy * Hospitalization/Major Diagno stic Procedure:?No Hospitalization History. * Family History:?Father: unkn own.?Mother: , stage 4 lung cancer.? No colorectal cancer, no liver cancer. 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 ???Nonsmoker; 2 glasses of wine QD. * Medications:?TakingEmgality 120 MG/ML Solution Auto-injector as directed Subcutaneous , Notes: Monthly injections for headachesCarvedilol Phosphate ER 20 MG Capsule Extended Release 24 Hour 1 capsule with food Orally Once a dayAtorvastatin Calcium 10 MG Tablet 1 tablet Orally Once a dayOLANZapine 20 MG Tablet 1 tablet Orally Once a dayGemfibrozil 600 MG Tablet 1 tablet 30 minutes before morning and evening meals Orally Twice a daybusPIRone HCl 30 MG Tablet 1 tablet Orally Twice a dayPristiq 100 MG Tablet Extended Release 24 Hour 1 tablet Orally Once a dayOmeprazole 20 MG Tablet Delayed Release 1 Orally Once a dayTaking Emgality 120 MG/ML Solution Auto- injector as directed Subcutaneous , Notes: Monthly injections for headachesTaking Carvedilol Phosphate ER 20 MG Capsule Extended Release 24 Hour 1 capsule with food Orally Once a dayTaking Atorvastatin Calcium 10 MG Tablet 1 tablet Orally Once a dayTaking OLANZapine 20 MG Tablet 1 tablet Orally Once a dayTaking Gemfibrozil 600 MG Tablet 1 tablet 30 minutes before morning and evening meals Orally Twice a dayTaking busPIRone HCl 30 MG Tablet 1 tablet Orally Twice a dayTaking Pristiq 100 MG Tablet Extended Release 24 Hour 1 tablet Orally Once a dayTaking Omeprazole 20 MG Tablet Delayed Release 1 Orally Once a dayUnknownPriLOSEC 20 MG Capsule Delayed Release 1 capsule Orally Once a day, Notes: Started on 10/19/2019clonazePAM 1 MG Tablet (Schedule IV Drug) TAKE 1 TABLET BY MOUTH ONCE DAILY FOR 30 DAYS Oral Carvedilol 3.125 MG Tablet TAKE 1 TABLET BY MOUTH TWICE A DAY Oral Lisinopril 5 MG Tablet Oral Medication List reviewed and reconciled with the patientUnknown PriLOSEC 20 MG Capsule Delayed Release 1 capsule Orally Once a day, Notes: Started on 10/19/2019Unknown clonazePAM 1 MG Tablet (Schedule IV Drug) TAKE 1 TABLET BY MOUTH ONCE DAILY FOR 30 DAYS Oral Unknown Carvedilol 3.125 MG Tablet TAKE 1 TABLET BY MOUTH TWICE A DAY Oral Unknown Lisinopril 5 MG Tablet Oral Medication List reviewed and reconciled with the patient * Allergies:?N.K.D.A.yes[Aller gies Verified] Objective: * Vitals:?Wt: 202 lb 2 oz, Ht: 68.5 in, BMI:30.28 Index, BP: 000/00 mm Hg, Temp: 98.0. * Examination: ???General Examination: ?GENERAL APPEARANCE:?pleasant, well nourished, well developed, in no acute distress.?EYES:?sclera non-icteric.?ORAL CAVITY:?mucosa moist.?NECK/THYROID:?no cervical lymphadenopathy, neck supple.?SKIN:?nonjaundiced, no spider angiomata.?HEART:?S1, S2 normal.?LUNGS:?clear to auscultation bilaterally.?ABDOMEN:?normal bowel sounds, no guarding or rigidity, no masses palpable, soft, NT,?nondistended.?EXTREMITIES:?no edema.?NEUROLOGIC:?alert and oriented.? Assessment: * Assessment: 1.?Fatty liver - K76.0 (Prim bri)?2.?Gastroesophageal reflux disease, esophagitis presence not specified - K21.9?3.?Elevated liver function tests - R79.89? Overall, Nae appears joan mae. We did review the findings on his GI procedures from earlier this year. I advised him that he should continue his daily omeprazole for continued symptomatic relief of reflux. As long as things remain stable in that regard I don't think he will need any further upper endoscopies given no evidence of Nuñez's esophagus seen on the endoscopy. I would typically recommend another colonoscopy in 10 years given what appeared to be a small hyperplastic polyp. However, given the pathologist's concern about a possible serrated polyp, I advised him that I would recommend we do that again in 5 years rather than 10. I shall repeat a liver profile today. I did advise him of the diagnosis of fatty liver and that obviously weight loss and careful diet are the best ways to handle that. If the LFTs remain basically normal I would not recommend any further workup. However, if the LFTs have risen significantly I would want him to have the complete liver workup that I had ordered earlier in the year. Nae was comfortable with this plan. Thank you again for allowing me to participate in Nae's care. I shall continue to keep you advised of his progress. Plan: * Treatment: 2.?Gastroesophageal reflux d isease, esophagitis presence not specified? Notes: Continue daily omeprazole?? 3.?Elevated liver function t ests?LAB: LIVER PROFILE Notes: Continue diet for the fatty liver?? 4.?Others? Notes: Repeat colonoscopy in 2028?? * Procedure Codes:?3017F COLOR ECTAL CA SCREEN DOC [id number] TOBACCO [id number] BP SCR NOT PRFRM REC REASON NOS * Preventive Medicine:? ??Counseling:?Care goal follow-up plan:?Above Normal BMI Follow-up?Giving encouragement to exercise,?BMI management provided?Yes.? * Follow Up:?prn * * Sign off status: Completed true * Provider:?Carlos Gomez MD Date:? 024 Generated for Bran erickson/Jhonatan/eTransmitting on:?01/05/2025 08:20 AM EDT History and Physical Notes * HPI (History of Present Illness) Category Sub-Category Detail Notes Category Not es incontinence I saw Nae in followup today in regard to his chronic gastroesophageal reflux and presumed fatty liver. I last saw Nae in October, at which time he underwent an upper endoscopy and screening colonoscopy. His colonoscopy revealed a tiny polyp that was removed and shown to be a probable hyperplastic polyp, but the pathologist stated that she could not definitively rule out a serrated polyp. His upper endoscopy revealed only a small hiatal hernia and some minimal changes of reflux but without any evidence of esophagitis or Nuñez's esophagus. He has continued to feel well it is daily omeprazole and denies any significant symptoms of heartburn no dysphagia. He enjoys a good appetite and denies any nausea, vomiting, nor early satiety. His bowel movement to remain regular and without any bleeding. He was noted to have elevated LFTs in the past but on repeating those they had markedly improved. An abdominal ultrasound Revealed only changes of a fatty liver. I did order a complete liver workup but he never had that done. His most recent liver profile as of August revealed an AST of 43 and ALT of 54 with otherwise normal values. Of note, he has lost about 30 pounds on purposeful diet over the course of this year. He does have about 2 glasses of wine each day. Examination Category Sub-Category Detail Notes Category Not es General Examination GENERAL APPEARANCE: pleasant , well [...]
--- OUTSIDE RECORDS SUMMARY | 2025-01-05 08:20 | XMS_ITS | Patient Health Record ---
Author Organization [facility] Address [address] [place] [address] Care Team Providers Care Land Acquisition Analyst Name Role Phone Song Pratt MD Primary Care Provider Carlos Vila Unavailable [phone] Allergies No Known Allergies Reason For Referral No Information Medications Medication SIG (Take, Route, Frequency, Duration) [...] 5 MG Oral for 90 Un known Immunizations Vaccine Route Administration Date Status Comme nts Influenza Unknown 07/10/2023 Administered Influenza Unknown 06/06/2023 Administered Influenza Unknown 10/23/2019 Refused Problems Problem Type SNOMED Code ICD Code Onset Dates Problem Status W/U Status Risk Notes Problem 843098724 Colon cancer screening (Z12.11) Active confirmed Problem Gastro-esophage al reflux disease without esophagitis (966279047) Gastro-esophageal reflux disease without esophagitis (K21.9) Active confirmed Problem 610082334 Elevated liver function tests (R79.89) Active confirmed Problem 608762537 Fatty liver (K76.0) Active confirmed Problem 387594254 Gastroesophageal reflux disease, esophagitis presence not specified (K21.9) Active confirmed Problem 949290462 Abdominal pain, right upper quadrant (R10.11) Active confirmed Problem 36207389 Non-intractable vomiting with nausea, unspecified vomiting type (R11.2) Active confirmed Problem 021644052 Gastroesophageal reflux disease, unspecified whether esophagitis present (K21.9) Active confirmed Vital Signs Temperature 98.0 degrees Fahrenheit 06/11/2024 Blood pressure diastolic 00 mm Hg 06/11/2024 Height 68.5 in 06/11/2024 Blood pressure systolic 000 mm Hg 06/11/2024 Weight 202 lb 2 oz lbs 06/11/2024 BMI 30.28 kg/m2 06/11/2024 Encounters Encounter Location Date Provider Diagnosis [facility] [address] [place] [address] 06/11/2024 Carlos Gomez Gastroesophageal ref lux disease, esophagitis presence not specified K21.9 ; Fatty liver K76.0 and Elevated liver function tests R79.89 Assessments Encounter Date Diagnosis (ICD Code) Assessment Notes Treatment Notes Treatment Clinical Notes Section Notes 06/11/2024 Fatty liver (ICD-10 - K76.0) Overall, [...] keep you advised of his progress. 06/11/2024 Gastroesophageal reflux disease, esophagitis presence not [...] advised of his progress. Plan Of Treatment Pending Test Test Name Order Date LIVER PROFILE 06/11/2024 LIVER PROFILE 07/25/2023 IRON + IBC (FE) 07/25/2023 CBC w DIFF 07/25/2023 HEPATITIS B, C PROFILE 07/25/2023 FLUOR. ANTINUCLEAR AB SCREEN (LEANN) 01/2023 Prothrombin Time INR 07/25/2023 Ferritin 07/25/2023 Ceruloplasmin 07/25/2023 Alpha 1 Anti-trypsin 07/25/2023 Liver Fibrosis Pnl 07/25/2023 Mitochondrial Antibody 07/25/2023 Smooth Muscle Antibody 07/25/2023 US abdomen comp w elastography 3 Future Test Test Name Order Date UPPER GI ENDOSCOPY 10/23/2019 UPPER GI ENDOSCOPY 07/25/2023 COLONOSCOPY 07/25/2023 Insurance Providers Payer Name Payer Address Payer Phone Subscriber Number Group Number Insured Name Patient Relationship to Insured Coverage Start Date Coverage End Date [employer] [place] [address] [address] [place] [id number] NAE HOBBS Self - patient is the insured Medical (General) History Medical History History ICD Code EGD 08/04/2005--negative--no celiac disease, neg. H.pylori, no esophagitis/Nuñez's Denies [place],DM,CVA,Lung disease,renal dise ase Hypertension Migraines Concussions in 2017 Depression/Anxiety Normal gallbladder ultrasound and HIDA w ith CCK in 2014 Hyperlipidemia GERD--upper endoscopy in Oct 2023 revealed a small hiatal hernia and mild reflux, but no evidence of any significant esophagitis nor Nuñez's esophagus Elevated LFT's-- presumed fa tty liver with significant improvement with weight loss--he had a liver ultrasound, but did not have a liver workup as his LFTs significantly improved Screening colonoscopy in [facility] 2023 revealed a small polyp which was removed and shown to be a probable hyperplastic polyp, although the pathologist could not definitively rule out a serrated polyp Surgical History Surgery Date(Month/Year) TMJ syndrome Left knee arthroscopy
--- OUTSIDE RECORDS SUMMARY | 2025-01-05 08:20 | XMS_ITS ---
Author Organization [facility] Address [address] [place] [address] Care Team Providers Care Activities Leader Name Role Phone Song Pratt MD Primary Care Provider Carlos Vila Unavailable [phone] REASON FOR VISIT screening,gerd Problems Problem Type SNOMED Code ICD Code Onset Dates Problem Status W/U Status Risk Notes Problem Gastro-esophagea l reflux disease without esophagitis (823330399) Gastro-esophage al reflux disease without esophagitis (K21.9) Active confirmed Encounters Encounter Location Date Provider Diagnosis [facility] Outpatient [address] [place] [phone] 10/26/2023 Carlos Gomez Encounter for scre ening colonoscopy Z12.11 ; Colon polyps K63.5 ; Other hemorrhoids K64.8 ; Gastro-esophageal reflux disease without esophagitis K21.9 and Hiatal hernia K44.9 Assessments Encounter Date Diagnosis (ICD Code) Assessment Notes Treatment Notes Treatment Clinical Notes Section Notes 10/26/2023 Encounter for screening colonoscopy (ICD-10 - Z12.11) 10/26/2023 Colon polyps (ICD-10 - K63.5) 10/26/2023 Other hemorrhoids (ICD-10 - K64.8) 10/26/2023 Gastro-esophagea l reflux disease without esophagitis (ICD-10 - K21.9) 10/26/2023 Hiatal hernia (ICD-10 - K44.9) Plan Of Treatment No Information Progress Notes * ARMANDO HOBBS: 5 (49 yo M)Acc No.[id number]:10/26/2023 EGD and COL/MAC Patient:?NAE HOBBS Provider:?Carlos Gomez MD :1975???Age:48 Y???Sex:Male Mikhail e:10/26/2023 Address:[address] [place] [address] [place], [id number] Pcp:Song Pratt MD Subjective: * Chief Complaints: * ???1. Screening,gerd. * Medical History:? Objective: * Vitals:? Assessment: * Assessment: 1.?Encounter for screening c olonoscopy - Z12.11 (Primary)???2.?Colon polyps - K63.5???3.?Other hemorrhoids - K64.8???4.?Gastro-esophageal reflux disease without esophagitis - K21.9???5.?Hiatal hernia - K44.9??? Plan: * Treatment: * Procedure Codes:?73254 COLON OSCOPY AND BIOPSY, Modifiers: PT , [address]303 UPPER GI ENDOSCOPY, BIOPSY * * The named appointment provid er may or may not be the originator of this progress note, and it is not deemed complete until electronically signed by the appointment provider. Sign off status: Pending * Provider:?Carlos Gomez MD Date:? 024 Generated for Bran erickson/Jhonatan/eTransmitting on:?01/05/2025 08:20 AM EDT
[2025-01-05 08:24] VITALS: BP 118/78; PULSE 78; RESP 18; TEMP 36.6; O2SAT 96; BMI 32.4
== END 2025-01-05 08:39 | disposition home or self-care (01) ==
LOC: HO.HMCHD 08:17
PROVIDERS: PCP Internal Medicine; Visit Provider Physician Assistant
DX: F32.9 Major depressive disorder, single episode, unspecified (principal); E78.00 Pure hypercholesterolemia, unspecified; I10 Essential (primary) hypertension; R73.03 Prediabetes

== ENCOUNTER → 2025-01-05 08:16 | Outpatient (BNVA) | payer OTHER, SELFPAY | PROVIDERS: PCP Internal Medicine; Visit Provider Physician Assistant ==

== ENCOUNTER 2025-01-05 08:42 | Outpatient (REF) | payer OTHER, SELFPAY ==
[2025-01-05 10:20] LABS: MANUAL DIFF FLAG NO
[2025-01-05 10:50] LABS: Basophils Absolute Auto 0.1 X10*3/uL (0.0-0.2); Basophils Percent Auto 0.7 % (0-2); Eosinophils Absolute Auto 0.1 X10*3/uL (0.0-0.4); Hematocrit 40.1 % (42.0-52.0); Hemoglobin 13.3 g/dl (14.0-18.0); Imm Gran Abs Auto 0.02 X10*3/uL (0.00-0.03); Imm Gran Pct Auto 0.3 % (0.0-0.4); Lymphocytes Absolute Auto 1.9 X10*3/uL (1.2-4.9); Lymphocytes Percent Auto 27.5 % (20-40); Mean Corpuscular HGB Conc 33.2 g/dl (31.0-36.0); Mean Corpuscular Hemoglobin 32.4 pg (27.0-33.0); Mean Corpuscular Volume 97.8 fL (80.0-98.0); Mean Platelet Volume 10.6 fL (9.4-12.4); Monocytes Absolute Auto 0.4 X10*3/uL (0.1-1.2); Neutrophils Absolute Auto 4.4 x10*3/uL (2.0-8.3); Neutrophils Percent Auto 64.5 % (45-73); Platelet Count 335 X10*3/uL (160-400); Red Cell Distribution Width 13.2 % (11.0-16.0); White Blood Count 6.8 X10*3/uL (4.8-10.8)
[2025-01-05 11:03] LABS: Estimated Average Glucose 120 mg/dL; Hemoglobin A1C 136.5243 umol/L; Hemoglobin A1c % 5.8 % (<6.0); Total Hemoglobin (HGBA1C) 3418.0711 umol/L
[2025-01-05 11:24] LABS: Alanine Aminotransferase 32 U/L (0-40); Albumin Level 4.5 g/dL (3.5-5.0); Alkaline Phosphatase 69 U/L (39-117); Anion Gap 15 (12-20); Aspartate Amino Transferase 29 U/L (5-37); Bilirubin Direct 0.2 mg/dL (0.0-0.5); Bilirubin Total 0.4 mg/dL (0.0-1.0); Blood Urea Nitrogen 9 mg/dL (9-16); Calcium 9.5 mg/dL (8.4-10.2); Carbon Dioxide 24 mmol/L (22-29); Chloride 103 mmol/L (96-108); Cholesterol 146 mg/dL (<200); Estimated Glomerular Filt Rate > 60; Glucose Random 135 mg/dL (60-115); HDL Cholesterol 29 mg/dL (>40); Iron 83 mcg/dL (45-160); LDL Cholesterol Calculated 87 mg/dL (<100); Percent Iron Saturation 27 % (15-50); Potassium 3.8 mmol/L (3.3-5.1); Sodium 138 mmol/L (135-145); Total Iron Binding Capacity 304 mcg/dL (228-428); Total Protein 7.6 g/dL (6.5-8.0); Triglycerides 151 mg/dL (<150); Unsaturated Iron Binding 221 ug/dL
== END 2025-01-05 08:43 | disposition home or self-care (01) ==
LOC: HO.10HDL 08:42
PROVIDERS: Visit Provider Physician Assistant
DX: R73.03 Prediabetes (principal); E78.00 Pure hypercholesterolemia, unspecified; I10 Essential (primary) hypertension; D64.9 Anemia, unspecified
CPT/HCPCS: 36415; 80048; 80061; 80076; 83036; 83540; 84443; 85025

== ENCOUNTER 2025-03-22 12:07 | Emergency (ER) | payer OTHER, SELFPAY ==
[2025-03-22 12:11] VITALS: BP 120/64; PULSE 82; RESP 19; TEMP 36.6; O2SAT 94; BMI 31.2
--- NOTE | 2025-03-22 12:16 | ED.GENADULT ---
HPI - General Adult General Chief complaint: General Medical Stated complaint: Facial weakness, left side droopy Time Seen by Provider: 03/22/25 12:22 History of Present Illness ED Provider: Marlee GODOY narrative: The patient is a 50-year-old male with a history of depression who yesterday noticed some increased tearing from his left eye. Yesterday evening his noticed that his left face seemed somewhat weak. Today she took him to an urgent care where they were not certain that this was Nieves's palsy and so referred him to the emergency room. Other than left-sided facial weakness and a sense of increased watering from the left eye the patient has no complaints. There was no headache. No fever, sweats, chills. No left arm weakness or other weakness in the body. No speech difficulty. He has not had any recent tick bites. He has had no fever, sweats, chills, no rash. Related Data Home Medications ?Medication ?Instructions ?Recorded ?Confirmed carvedilol phosphate 20 mg 20 mg PO DAILY 01/19/21 07/30/24 capsule,ext.[id number] multiphase desvenlafaxine succinate 100 mg 100 mg PO DAILY 10/24/23 07/30/24 tablet,extended release 24 hr (Pristiq) olanzapine 20 mg-samidorphan 10 mg 1 tab PO BEDTIME 10/25/23 07/30/24 tablet (Lybalvi) atorvastatin 20 mg tablet 20 mg PO DAILY 04/03/24 07/30/24 Ketamine PO 01/05/25 Previous Rx's ?Medication ?Instructions ?Recorded omeprazole 40 mg capsule,delayed 40 mg PO DAILY #90 caps 12/05/24 release gemfibrozil 600 mg tablet (Lopid) 600 mg PO BID #180 tabs 03/13/25 lisinopril 5 mg tablet 5 mg PO BEDTIME #90 tabs 03/13/25 prednisone 20 mg tablet 60 mg (3 x 20 mg) PO DAILY 6 days 03/22/25 #18 tabs valacyclovir 1 gram tablet 1,000 mg PO TID 7 days #21 tabs 03/22/25 Allergies Allergy/AdvReac Type Severity Reaction Status Date / Time No Known Allergies (No Known Allergy Verified 03/22/25 12:12 Allergies*) [facility] Past Medical History Medical History (Updated 03/22/25 @ 12:47 by Aleksander Whalen MD) Anemia History of TMJ syndrome Anxiety Depression Other secondary scoliosis, thoracolumbar region Other fatigue Syncope and collapse Low back pain Acute pharyngitis Acute kidney failure Dizziness and giddiness Postconcussional syndrome Cervicalgia Fall (on) (from) other stairs and steps, initial encounter Nausea History of falling Major depressive disorder Essential (primary) hypertension Abnormal weight gain GERD with esophagitis Unspecified right bundle-branch block Chronic kidney disease, stage 1 Other obesity due to excess calories Vitamin D deficiency Prediabetes Abnormal results of liver function studies Mixed hyperlipidemia Headache Flexural eczema Chronic kidney disease, stage 2 (mild) Fatty liver Hypercholesteremia Hypertension Migraines Surgical History (Updated 01/02/25 @ 12:08 by Mariam Jasmine) History of colonoscopy (~10/26/23) History of esophagogastroduodenoscopy (EGD) H/O left knee surgery Social History Social History Patient Tobacco Use Status: Never used Tobacco Advance Directives: Yes Advance Directives Information Provided: No Advance Directives on File: No Do you have a plan to hurt others: No Plan Current occupational status: unemployed Current occupation: Right Handed Physical Exam ED Vital Signs: Vital Signs - 24 hr 03/22/25 12:11 Temperature 98 F Pulse Rate 82 Respiratory Rate 19 Blood Pressure 120/64 Pulse Oximetry 94 Oxygen Delivery Method Room Air BMI result Body Mass Index 31.2 Const Other: The patient is awake and alert. He does not seem in any distress. He seems to have some left-sided facial weakness. HENMT Other: There is left-sided facial weakness. He has some mild function of the upper portion of the left face but overall I think the face is weaker in all areas of the face. Additionally he did not seem to be fully closing his left eye. Eyes Other: Pupils are round equal, extraocular movements are intact, conjunctivae are clear, the patient's eyelids seem weak on the left eye. He seems to have week blinking. I can easily open his left eye if he tries to shut his eyes against resistance. I can not do the same on the right. The right eye and eyelids all seem normal. Neck Neck: Yes normal visual inspection, Yes full ROM and Yes no JVD Resp Effort & Inspection: normal respiratory effort Auscultation: clear to auscultation bilaterally Cardio Rate: regular rate Rhythm: regular rhythm Heart sounds: S1 normal heart sound present and S2 normal heart sound present Skin Other: The skin is dry and unremarkable Neuro Other: The patient is awake and alert with a normal mental status. He has left-sided facial weakness including some weakness of the forehead. Eyelid strength on the left is weak. Otherwise the patient has intact cranial nerves. He has symmetrical strength in the extremities. He has a normal gait. Extrem Other: No peripheral edema Course Course Course Narrative: This is an RME performed by Evan Ho CNP: Additional HPI, ROS, PE not included below will be deferred to primary provider. Patient is a 50-year-old male presents emergency department for evaluation. 21:00 yesterday evening had onset of left-sided facial droop/weakness prior to that had watering sensation to the eye. On examination appears to have facial nerve palsy no additional neurological deficits, most concerning for Nieves's palsy. Patient brought back to main ED Medical Decision Making Medical Decision Making MDM Narrative: The patient is a 50-year-old male who presents with what seems to be a fairly straight forward case of left-sided Nieves's palsy. He does not think that he has had any symptoms of Lyme disease. I think this is probably a sporadic case of Nieves's palsy. He will be started on prednisone and valacyclovir. We will send a Lyme study. He is advised to try to protect the left eye. He is advised to use esxq-iek-fdjyfwx artificial tears and to gently tape the eye shut at night. He should follow up soon with his PCP. He was also given contact information for the facial nerve Clinic at the [facility] if they wished to follow up further. We will call him if the Lyme is positive. Lab Data 03/22/25 12:51 03/22/25 12:51 Discharge Plan Discharge Clinical Impression: Left-sided Nieves's palsy Patient Disposition: Home, Self-Care Instructions: Nieves Palsy (ED) Additional Instructions: You seemed to have a case of Nieves's palsy. Please take the prednisone and the valacyclovir prescribed. Also please purchase pqbw-zgt-gwijbrz artificial tears and apply the artificial tears to the eye several times a day to help keep the eye from drying out. Also at night please gently tape the eye shut protect the eye at night. Please contact your primary care doctor's office tomorrow for a follow up appointment. Additionally you may wish to contact the ?[facility]? at the [facility] in [place] (part of [facility]) [phone] and inquire as to whether they feel they might have anything to add to your care. We will contact you if your Lyme test is positive. Return to the emergency room if acutely worse. Prescriptions: New prednisone 20 mg tablet 60 mg PO DAILY 6 Days Qty: 18 0RF valacyclovir 1 gram tablet 1,000 mg PO TID 7 Days Qty: 21 0RF No Action omeprazole 40 mg capsule,delayed release(DR/EC) 40 mg PO DAILY Qty: 90 1RF gemfibrozil [Lopid] 600 mg tablet 600 mg PO BID Qty: 180 3RF lisinopril 5 mg tablet 5 mg PO BEDTIME Qty: 90 3RF desvenlafaxine succinate [Pristiq] 100 mg Tablet Extended Release 24 Hr 100 mg PO DAILY Lybalvi 20-10 mg tablet 1 tab PO BEDTIME carvedilol phosphate 20 mg capsule, ER multiphase 24 hr 20 mg PO DAILY Rx Instructions: must administer with a meal/food atorvastatin 20 mg tablet 20 mg PO DAILY Ketamine PO Referrals: [facility] Primary Care, [facility] [Provider Group, Primary Care] Print Language: Kiswahili
--- OUTSIDE RECORDS SUMMARY | 2025-03-22 12:47 | XMS_ITS | Patient Health Record ---
Author Organization [facility] Address [address] [place] [address] Care Team Providers Care Apprentice Funeral Director Name Role Phone Terence (RETIRED) Song ANDERSON Primary Care Provide r Unavailable Carlos Gomez Unavailable [phone] Allergies No Known Allergies Reason For Referral [...] Problem Status W/U Status Risk Notes Problem 044120286 Colon cancer screening (Z12.11) Active confirmed Problem Gastro-esophage al reflux disease without esophagitis (556133987) Gastro-esophageal reflux disease without esophagitis (K21.9) Active confirmed Problem 069446271 Elevated liver function tests (R79.89) Active confirmed Problem 934623536 Fatty liver (K76.0) Active confirmed Problem 830359751 Gastroesophageal reflux disease, esophagitis presence not specified (K21.9) Active confirmed Problem 303014995 Abdominal pain, right upper quadrant (R10.11) Active confirmed Problem 11040022 Non-intractable vomiting with nausea, unspecified vomiting type (R11.2) Active confirmed Problem 487286511 Gastroesophageal reflux disease, unspecified whether esophagitis present (K21.9) Active confirmed Vital Signs Temperature 98.0 degrees Fahrenheit 06/11/2024 Blood pressure diastolic 00 mm Hg 06/11/2024 Height 68.5 in 06/11/2024 Blood pressure systolic 000 mm Hg 06/11/2024 Weight 202 lb 2 oz lbs 06/11/2024 BMI 30.28 kg/m2 06/11/2024 Encounters Encounter Location Date Provider Diagnosis [facility] [address] [place] [id number] 06/11/2024 Carlos Gomez Gastroesophageal ref lux disease, [...] I had ordered earlier in the year. Nea was comfortable with this plan. Thank you [...] Coverage End Date [employer] [place] [address] [address] [place] [address] [id number] NAE HOBBS Self - patient is the insured Medical (General) History Medical History History ICD Code EGD 08/04/2005--negative--no celiac disease, neg. H.pylori, no esophagitis/Nuñez's Denies [place],DM,CVA,Lung disease,renal dise ase Hypertension Migraines Concussions in 2017 Depression/Anxiety Normal gallbladder ultrasound and HIDA w ith CCK in 2013 Hyperlipidemia GERD--upper endoscopy in [facility] 2023 revealed a small hiatal hernia and mild reflux, but no evidence of any significant esophagitis nor Nuñez's esophagus Elevated LFT's-- presumed fa tty liver with significant improvement with weight loss--he had a liver ultrasound, but did not have a liver workup as his LFTs significantly improved Screening colonoscopy in [facility] 2023 revealed a small polyp which was removed and shown to be a probable hyperplastic polyp, although the pathologist could not definitively rule out a serrated polyp Surgical History Surgery Date(Month/Year) TMJ syndrome Left knee arthroscopy
[2025-03-22 12:54] LABS: MANUAL DIFF FLAG NO
[2025-03-22 12:56] LABS: Hematocrit 38.2 % (42.0-52.0); Hemoglobin 13.2 g/dl (14.0-18.0); Imm Gran Abs Auto 0.04 X10*3/uL (0.00-0.03); Imm Gran Pct Auto 0.6 % (0.0-0.4); Lymphocytes Absolute Auto 1.5 X10*3/uL (1.2-4.9); Mean Corpuscular HGB Conc 34.6 g/dl (31.0-36.0); Mean Corpuscular Hemoglobin 33.4 pg (27.0-33.0); Mean Corpuscular Volume 96.7 fL (80.0-98.0); NRBC Abs Auto 0.000 X10*3/uL (0.0-0.012); NRBC Pct Auto 0.0 /100WBC (0.0-0.2); Platelet Count 275 X10*3/uL (160-400); Red Blood Count 3.95 X10*6/uL (4.60-5.80); White Blood Count 6.2 X10*3/uL (4.8-10.8)
[2025-03-22 13:08] LABS: Anion Gap 16 (12-20); Blood Urea Nitrogen 8 mg/dL (9-16); Calcium 8.9 mg/dL (8.4-10.2); Carbon Dioxide 25 mmol/L (22-29); Chloride 106 mmol/L (96-108); Creatinine Clr Calc Pharmacy 104.1; Estimated Glomerular Filt Rate > 60; Potassium 4.2 mmol/L (3.3-5.1); Sodium 143 mmol/L (135-145)
[2025-03-22 13:12] VITALS: BP 120/64; PULSE 82; RESP 19; TEMP 36.6; O2SAT 94
[2025-03-23 23:28] LABS: Lyme Abs Screen <0.90 index
== END 2025-03-22 13:12 | disposition home or self-care (01) ==
PROVIDERS: Emergency Provider Emergency Medicine; PCP Physician Assistant
DX: G51.0 Bell's palsy (principal); R53.1 Weakness
CPT/HCPCS: 36415; 80048; 85025; 86617; 86618; 99282; 99283

== ENCOUNTER 2025-06-29 08:13 | Outpatient (AMB) | payer OTHER, SELFPAY ==
--- NOTE | 2025-06-29 07:33 | A.OFFPC_ITS ---
Vital Signs 06/29/25 08:22 Height 5 ft 8.86 in Weight 106.594 kg BMI 34.8 BP 116/78 Blood Pressure Location Lt brachial Position Sitting Respiration 18 Pulse 81 Pulse Source Pulse Oximeter Temp 97.6 F Temp Source Temporal Artery Scan Pulse Oximetry (%) 95 Oxygen Delivery Method Room Air Intake Visit Reasons: 6 Month F/U Operating Theatre Technician Required: No Accompanied by: Self / Same As Patient Allergies No Known Allergies (No Known Allergies*) Allergy (Verified 06/29/25 07:34) Medication List - Last Reconciled 06/29/25 by AILYN Erickson atorvastatin 20 mg PO DAILY carvedilol phosphate ER 20 mg PO DAILY desvenlafaxine succinate ER (Pristiq) 100 mg PO DAILY gemfibrozil (Lopid) 600 mg PO BID [Ketamine PO .once a week] lamotrigine 100 mg PO DAILY lisinopril 5 mg PO BEDTIME olanzapine-samidorphan 20-10 mg (Lybalvi) 1 tab PO BEDTIME omeprazole 40 mg PO DAILY sildenafil 100 mg PO DIRECTED Tobacco use date assessed: 06/29/25 Dental Screening Dental Screen Date: 06/29/25 Did you have a dental visit in the last 12 months?: No Did you have a dental problem in the last 6 months where you did not have access to dental care?: No Was dental information given to patient?: Patient has dentist HPI HPI Comments History of Present Illness Details 49-year-old male with history of hyperte nsion, hyperlipidemia, prediabetes, and depression presents to the office today for management of chronic conditions and to establish care. MDD- He has been following with a psychiatrist, Dr. Looney, for management of his medications which he reports compliance with. He has also been following at [facility] for ketamine injections. Reports Lamictal has been started and he continues on Lybalvi as well as Pristiq. He reports stability of his symptoms. He has never required hospitalization. Denies any SI/HI. He does report having supportive contacts and engaging in activities that he enjoys. HTN- compliant with lisinopril 5mg daily. Reports his BP is always high with SBP 150s when he goes for his ketamine inj, even before the injection. Reports they check this with a wrist cuff. Blood pressure today 116/78 and historically has been normal in the office HLD- compliant with atorvastatin 20mg daily Prediabetes- not always following healthy diet or exercising. Last A1c 2022 5.8% Recent Nieves's palsy-presented to ED in 03/2025 following facial droop on the left side. Treated with valacyclovir and prednisone. Resolved after 4 weeks Concerns: None Last colonoscopy 10/2023 with 10 year follow-up. Talked to Patricia ROS: General: No fevers, malaise, unintentional weight loss Cardiovascular: No chest pain, palpitations, or leg edema Respiratory: No shortness of breath, wheezing, cough MSK: No myalgia, back pain Neuro: No headaches, weakness, paresthesias Skin: No rashes or lesions Exam Constitutional - Awake and Alert, No apparent distress Eyes - PERRL Cardiovascular - S1S2, RRR, No edema Respiratory - Normal lung expansion, Normal respiratory effort, No respiratory distress, CTA bilaterally Extremities - no calf tenderness bilaterally, no swelling Skin - Warm/Dry Neurological - Alert & oriented x3. CN II-XII in tact Psychological - Appropriate affect [facility] Medical History (Updated 03/23/25 @ 00:01 by Iveth Grissom) Anemia History of TMJ syndrome Anxiety Depression Other secondary scoliosis, thoracolumbar region Other fatigue Syncope and collapse Low back pain Acute pharyngitis Acute kidney failure Dizziness and giddiness Postconcussional syndrome Cervicalgia Fall (on) (from) other stairs and steps, initial encounter Nausea History of falling Major depressive disorder Essential (primary) hypertension Abnormal weight gain GERD with esophagitis Unspecified right bundle-branch block Chronic kidney disease, stage 1 Other obesity due to excess calories Vitamin D deficiency Prediabetes Abnormal results of liver function studies Mixed hyperlipidemia Headache Flexural eczema Chronic kidney disease, stage 2 (mild) Fatty liver Hypercholesteremia Hypertension Migraines Surgical History (Updated 01/02/25 @ 12:08 by Mariam Jasmine) History of colonoscopy (~10/26/23) History of esophagogastroduodenoscopy (EGD) H/O left knee surgery Social History Housing: House Patient Tobacco Use Status: Never used Tobacco e-Cigarette/Vaping Use: Never Used service: No Current occupational status: unemployed Current occupation: Right Handed Questionnaire AUDIT C Alcohol Use Questionnaire (AUDIT-C) 1. How often do you have a drink containing alcohol?: 2-3 times a week 2. How many drinks containing alcohol do you have on a typical day when you are drinking?: 3 or 4 3. How often do you have six or more drinks on one occasion?: Never Total Score: 4 Physical exam (Primary Care) Vital Signs: Last Vital Signs Temp 97.6 F 06/29/25 08:22 Pulse 81 06/29/25 08:22 Resp 18 06/29/25 08:22 BP 116/78 06/29/25 08:22 Pulse Ox 95 06/29/25 08:22 Oxygen Delivery Method Room Air 06/29/25 08:22 BMI result Body Mass Index 34.8 Tobacco/Smoking Status: Tobacco use Status Tobacco use date assessed 06/29/25 06/29/25 07:34 Patient Tobacco Use Status Never used Tobacco 06/29/25 07:34 e-Cigarette/Vaping Use Never Used 06/29/25 08:24 Coding Level of Care Code Est Pt Level 4 (89203) Complex EM visit Add On G2211 Diagnoses Major depressive disorder F32.9 Hypercholesteremia E78.00 Hypertension I10 Prediabetes R73.03 Assessment & Plan Assessment & Plan (1) Major depressive disorder: Code(s): F32.9 - Major depressive disorder, single episode, unspecified Category: Medical Plan: Stable. No SI. Continue following with Dr. Looney and continue Pristiq as well as Lybalvi. Continue Lamictal. Denies history of bipolar disorder or schizophrenia. Continue following with Dr. Pizano for Ketamine injections. Monitor blood pressures closely. Will evaluate liver panel for medication monitoring. (2) Hypercholesteremia: Code(s): E78.00 - Pure hypercholesterolemia, unspecified Category: Medical Plan: Lipid panel ordered. Continue atorvastatin 20mg daily. Low fat diet and diet low in highly processed foods ordered. Recommend increased exercise. Will also check liver panel. (3) Hypertension: Code(s): I10 - Essential (primary) hypertension Category: Medical Plan: Controlled with blood pressure 118/78. Continue lisinopril 5mg daily. Low sodium diet. (4) Prediabetes: Code(s): R73.03 - Prediabetes Category: Medical Plan: Hgb A1c ordered. Counseled on healthy diet low in carbohydrates and increased exercise. Declines referral to nutrition Plan Follow up in 6 months. Labs to be completed today as well as prior to next visit. Orders: Orders Hemoglobin A1c 6 Months E78.00 - Pure hypercholesterolemia, unspecified, F32.9 - Major depressive disorder, single episode, unspecified, I10 - Essential (primary) hypertension, R73.03 - Prediabetes Lipid Panel 6 Months E78.00 - Pure hypercholesterolemia, unspecified, F32.9 - Major depressive disorder, single episode, unspecified, I10 - Essential (primary) hypertension, R73.03 - Prediabetes Liver Panel 6 Months E78.00 - Pure hypercholesterolemia, unspecified, F32.9 - Major depressive disorder, single episode, unspecified, I10 - Essential (primary) hypertension, R73.03 - Prediabetes Hemoglobin A1c Today I10 - Essential (primary) hypertension, R73.03 - Prediabetes Basic Metabolic Panel 6 Months E78.00 - Pure hypercholesterolemia, unspecified, F32.9 - Major depressive disorder, single episode, unspecified, I10 - Essential (primary) hypertension, R73.03 - Prediabetes
[2025-06-29 08:22] VITALS: BP 116/78; PULSE 81; RESP 18; TEMP 36.4; O2SAT 95; BMI 34.8
--- OUTSIDE RECORDS SUMMARY | 2025-06-29 08:36 | XMS_ITS | Patient Health Record ---
Author Organization [facility] Address [address] [place] [address] Care Team Providers Care Rfid Engineer Name Role Phone Terence (RETIRED) Song ANDERSON Primary Care Provide r Unavailable Carlos Gomez Unavailable [phone] Allergies No Known Allergies Reason For Referral No Information Medications Medication SIG (Take, Route, Frequency, Duration) Notes Start Date End Date Status Emgality 120 MG/ML as directed Subcutaneous Monthly injections for headaches Active clonazePAM 1 MG (Schedule IV Drug) TAKE 1 TABLET BY MOUTH ONCE DAILY FOR 30 DAYS Oral; Duration: 30 Unknown Carvedilol 3.125 MG TAKE 1 TABLET BY MOUTH TWICE A DAY Oral; Duration: 30 Unknown Omeprazole 20 MG 1 Orally Once a day; Duration: 30 Active PriLOSEC 20 MG 1 capsule Orally Once a day Started on 10/19/2019 Unknown busPIRone HCl 30 MG 1 tablet Orally Twice a day Active Pristiq 100 MG 1 tablet Orally Once a day; Duration: 30 day(s) Active OLANZapine 20 MG 1 tablet Orally Once a day; Duration: 30 day(s) Active Gemfibrozil 600 MG 1 tablet 30 minutes before morning and evening meals Orally Twice a day; Duration: 30 day(s) Active Carvedilol Phosphate ER 20 MG 1 capsule with food Orally Once a day; Duration: 30 day(s) Active Atorvastatin Calcium 10 MG 1 tablet Orally Once a day; Duration: 30 day(s) Active Lisinopril 5 MG Oral; Duration: 90 Unknown Immunizations Vaccine Route Administration Date Status Comme nts Influenza Unknown 07/10/2023 Administered Influenza Unknown 06/06/2023 Administered Influenza Unknown 10/23/2019 Refused Problems Problem Type SNOMED Code ICD Code Onset Dates Problem Status W/U Status Risk Notes Problem Colon cancer screening (472121093) Colon cancer screening (Z12.11) Active confirmed Problem Gastro-esophageal reflux disease without esophagitis (806430679) Gastro-esophageal reflux disease without esophagitis (K21.9) Active confirmed Problem Elevated liver enzymes level (037697719) Elevated liver function tests (R79.89) Active confirmed Problem Fatty liver (342163109) Fatty liver (K76.0) Active confirmed Problem Gastroesophageal reflux disease (851990808) Gastroesophageal reflux disease, esophagitis presence not specified (K21.9) Active confirmed Problem Right upper quadrant pain (609109072) Abdominal pain, right upper quadrant (R10.11) Active confirmed Problem Nausea and vomiting (28025291) Non-intractable vomiting with nausea, unspecified vomiting type (R11.2) Active confirmed Problem Gastroesophageal reflux disease (643427505) Gastroesophageal reflux disease, unspecified whether esophagitis present (K21.9) Active confirmed Plan Of Treatment Pending Test Test Name [...] End Date [employer] [id number] [place] [address] [id number] NAE HOBBS Self - patient is the insured Medical (General) History Medical History History ICD Code EGD 08/04/2005--negative--no celiac disease, neg. H.pylori, no esophagitis/Nuñez's Denies NM,DM,CVA,Lung disease,renal dise ase Hypertension Migraines Concussions in 2017 Depression/Anxiety Normal gallbladder ultrasound and HIDA w ith CCK in 2013 Hyperlipidemia GERD--upper endoscopy in [facility] 2023 revealed a small hiatal hernia and mild reflux, but no evidence of any significant esophagitis nor Nuñez's esophagus Elevated LFT's-- presumed fa tty liver with significant improvement with weight loss--he had a liver ultrasound, but did not have a liver workup as his LFTs significantly improved Screening colonoscopy in [facility] 2023 revealed a small polyp which was removed and shown to be a probable hyperplastic polyp, although the pathologist could not definitively rule out a serrated polyp Surgical History Surgery Date(Month/Year) TMJ syndrome Left knee arthroscopy
== END 2025-06-29 08:40 | disposition home or self-care (01) ==
LOC: HO.HMCHD 08:13
PROVIDERS: PCP Internal Medicine; Visit Provider Physician Assistant
DX: F32.9 Major depressive disorder, single episode, unspecified (principal); E78.00 Pure hypercholesterolemia, unspecified; I10 Essential (primary) hypertension; R73.03 Prediabetes

== ENCOUNTER 2025-06-29 08:42 | Outpatient (REF) | payer OTHER, SELFPAY ==
[2025-06-29 11:19] LABS: Hemoglobin A1C 105.7704 umol/L; Total Hemoglobin (HGBA1C) 2351.7426 umol/L
[2025-06-29 11:32] LABS: Alanine Aminotransferase 43 U/L (0-40); Albumin Level 4.9 g/dL (3.5-5.0); Alkaline Phosphatase 66 U/L (39-117); Anion Gap 15 (12-20); Aspartate Amino Transferase 43 U/L (5-37); Blood Urea Nitrogen 8 mg/dL (9-16); Calcium 9.7 mg/dL (8.4-10.2); Carbon Dioxide 23 mmol/L (22-29); Chloride 105 mmol/L (96-108); Cholesterol 167 mg/dL (<200); Estimated Glomerular Filt Rate > 60; HDL Cholesterol 29 mg/dL (>40); Potassium 4.4 mmol/L (3.3-5.1); Sodium 139 mmol/L (135-145); Total Protein 8.0 g/dL (6.5-8.0); Triglycerides 100 mg/dL (<150)
== END 2025-06-29 08:43 | disposition home or self-care (01) ==
LOC: HO.10HDL 08:42
PROVIDERS: Visit Provider Physician Assistant
DX: R73.03 Prediabetes (principal); E78.00 Pure hypercholesterolemia, unspecified; I10 Essential (primary) hypertension
CPT/HCPCS: 36415; 80048; 80061; 80076; 83036